=== PATIENT | female | born 1970 | race Caucasian/White ===

== ENCOUNTER → 2017-06-05 09:16 | Outpatient (CLI) | payer OTHER, SELFPAY ==
--- NOTE | 2017-06-05 09:20 | US_ITS ---
STUDY: ULTRASOUND BREAST - LEFT REASON FOR EXAM: Female, 47 years old. Six-month follow-up examination. TECHNIQUE: Axial and longitudinal images of the LEFT breast were performed with a high resolution ultrasound transducer. COMPARISON: Comparison is made with prior sonogram dated September 26, 2016 and prior mammogram done earlier in the day. FINDINGS: LEFT Breast: Once again, a dilated duct is seen at the 3:00 position breast at 3 cm from the nipple. This is unchanged. US/Breast Complete Unilateral IMPRESSION: Stable examination. ASSESSMENT CATEGORY: BIRADS Category 2: Benign. A letter regarding these results will be sent to the patient by the facility within 30 days. Electronically Signed: Branden Lopez MD at 11:03 EDT Tel [phone], Service support ,
--- NOTE | 2017-06-05 09:20 | BI_ITS ---
MAMMOGRAPHY - BILATERAL SCREENING REASON FOR EXAM: Female, 47 years old. Routine annual screening examination. PERTINENT HISTORY: Sister with breast cancer. Aunt with breast cancer. Prior left stereotactic breast biopsy. TECHNIQUE: Digital bilateral breast jorge (3D mammographic acquisition) in the CC and MLO projections. 2-D mediolateral oblique (MLO) and craniocaudad (CC) views of both breasts were obtained. CAD: Full Field Digital Mammography with Computer Added Detection was performed. COMPARISON: Comparison is made with prior study dated September 26, 2016 and February 14, 2016. FINDINGS: Breast Composition: The breasts are heterogeneously dense, which may obscure small masses. There are no dominant masses or suspicious calcifications. A tissue clip marker is once again seen in the deep midportion of the left breast. This is unchanged. No other significant abnormalities are identified. There has been no significant change since the prior study. BI/SCREENING MAMM (CAD), BILAT IMPRESSION: Stable bilateral screening mammogram. Yearly follow-up mammogram recommended. (A) ASSESSMENT CATEGORY: BIRADS Category 2: Benign. A letter regarding these results will be sent to the patient by the facility within 30 days. Approximately 10% of breast cancers are not detected by mammography. A normal mammogram should not delay biopsy of a clinically suspicious abnormality. [id number] Electronically Signed: Branden Lopez MD at 11:10 EDT Tel [phone], Service support ,
== END ==
PROVIDERS: Family Provider Internal Medicine; PCP Internal Medicine; Visit Provider Physician Assistant
DX: Z12.31 Encounter for screening mammogram for malignant neoplasm of breast (principal); R92.8 Other abnormal and inconclusive findings on diagnostic imaging of breast; Z80.3 Family history of malignant neoplasm of breast
CPT/HCPCS: 76641; 77063; 77067

== ENCOUNTER → 2018-01-28 09:32 | Outpatient (CLI) | payer OTHER, SELFPAY ==
--- NOTE | 2018-01-28 09:38 | BD_ITS ---
STUDY: DUAL ENERGY X-RAY ABSORPTIOMETRY / DXA REASON FOR EXAM: Female, 47 years old. Early menopause. No loss of height. TECHNIQUE: Bone Mineral Density (BMD) measurements of lumbar spine and bilateral hips were obtained. COMPARISON: Comparison is made with prior study dated February 06, 2015. FINDINGS: Lumbar Spine (L1-L4): g/cm2 (1.183) / T-score (0.0) / Z-score (0.2) Findings are suggestive of normal bone density with a low fracture risk. Left Femur Total: g/cm2 (0.884) / T-score (-1.0) / Z-score (-0.6) Left Femoral Neck: g/cm2 (0.831) / T-score (-1.5) / Z-score (-0.8) Right Femur Total: g/cm2 (0.873) / T-score (-1.1) / Z-score (-0.7) Right Femoral Neck: g/cm2 (0.831) / T-score (-1.5) / Z-score (-0.8) The T-Scores on the most recent prior examination were: Lumbar Spine (L1-L4): There has been worsening of bone density since the previous examination. Left Femur Total: which represents a worsening of 1.7%. Right Femur Total: which represents a worsening of 2.1%. BD/Dexa Bone Density Study IMPRESSION: The patient is considered osteopenic as outlined below according to World [employer] Organization (WHO) criteria with a moderate fracture risk. There has been worsening of bone density since the previous examination. Reference Information: The T-score is the number of standard deviations above or below the standard which is normal for young adults at their peak bone mineral density. The World Health Organization (WHO) interprets the T-scores as follows: Above -1 Normal bone density Between -1 and -2.5 Osteopenia Equal to / or below -2.5 Osteoporosis As a practical clinical guideline, osteopenia may be graded as follows: Mild -1 through -1.5 Moderate -1.6 through -2.0 Severe -2.1 through -2.4 The Z-score is the number of standard deviations above or below age-matched controls. A Z-score of less than -1.5 would be considered abnormal. References: 1. NIH Osteoporosis and Related Bone Diseases http://www.osteo.org 2. International Society for Clinical Densitometry http://www.iscd.org 3. National Osteoporosis Foundation http://www.nof.org Electronically Signed: Branden Lopez MD at 10:09 EST Tel [phone], Service support ,
--- OUTSIDE RECORDS SUMMARY | 2018-03-16 03:11 | XMS RPT_ITS ---
:1970 Author Organization OHIP Care Team Providers Name Role Phone RAYMUNDO ARANGO Referring Unavailable TALRAYMUNDO FULLER Attending Unavailable GAMA VILLARREAL Attending Unavailable TALAMPRAYMUNDO DEL VALLE Referring Unavailable Joellen Richardson Attending Unavailable Talampas, Raymundo Primary Care Unavailable Donna Damico PA-C Attending Unavailable [place]ampas, Raymundo Primary Care Unavailable Jeffery Alonso Attending Unavailable Talampas, Raymundo Referring Unavailable Talampas, Raymundo Primary Care Unavailable PROBLEMS PROBLEMS DATE TYPE CONDITION / CODE ATTENDING STATUS SOURCE 11/14/2017 Active Encounter for NA Active [place] immunization / Clinic Main Z23(ICD-10) [place] Rep[facility] 06/16/2017 Active Mixed hyperlipidemia NA Active [facility] / E78.2(ICD-10) Clinic Main [place] Rep[facility] 07/11/2011 Active Other specified NA Active [facility] disorders of bone Clinic Main density and [place] structure, Repository unspecified site / M85.80(ICD-10) 06/19/2017 Active Encounter for NA Active [facility] screening for lipoid Clinic Main disorders / [place] Z13.220(ICD-10) Repository 06/19/2017 Active Malignant melanoma NA Active [facility] of unspecified lower Clinic Main limb, including hip [place] / C43.70(ICD-10) Repository 06/19/2017 Active Encounter for NA Active [place] screening for Clinic Main diabetes mellitus / [place] Z13.1(ICD-10) Repository 06/12/2017 Unknown R92.8 - Other Jeffery Alonso Active [place] abnormal and Community inconclusive Hospital findings on Repository diagnostic imaging of breast / R92.8(ICD-10) PROCEDURES PROCEDURES No Procedure Records FoundRESULTS RESULTS PROGRESS Observed: 02/25/2018 Status: COMPLETED Source: [facility] 9:40 AM [facility] REPOSITORY HNO ID: [id number] Author: Gama Villarreal Service: (none) Author Type: Physician Type: Progress Notes Filed: 02/25/2018 9:46 AM Note Text: This note was created using Robinhoodriter. Subjective Tisha Hernández is a 47 year old female with left eye irritation, discharge, eyelid stickiness, some blurriness of vision for 4 days. She felt vague discomfort in her left preauricular area. She has a history of recurrent corneal abrasion. She denied foreign body concerns. Right eye was fine. She was applying Genteel ointment with no relief. Review of Systems Constitutional: Negative for chills and fever. Eyes: Negative for pain. See HPI. Objective BP 110/62 (BP Site: Right Arm, BP Position: Sitting, BP Cuff Size: Regular Adult) Pulse 64 Temp 36.6 ?C (97.8 ?F) (Tympanic) Resp 18 Ht 167.6 cm (5' 6) Wt 61.7 kg (136 lb) LMP 12/13/2004 BMI 21.95 kg/m? Physical Exam Constitutional: No distress. Eyes: Pupils are equal, round, and reactive to light. EOM are normal. Right eye exhibits no discharge. Right conjunctiva is not injected. Right conjunctiva has no hemorrhage. Left conjunctiva is injected. Small eyelash in left eye. Corneas clear. Assessment and Plan 1. Acute bacterial conjunctivitis of left eye - ICD9: 372.03, ICD10: H10.32 - see medication orders - GENTAMICIN 0.3 % EYE DROPS. 2 drops left eye TID x 5 days. Irrigate eye as needed. Gama Villarreal MD CNOV Observed: 02/25/2018 Status: COMPLETED Source: [facility] 9:20 AM [facility] REPOSITORY Office Visit (INTMWS) TISHA HERNÁNDEZ ([id number]) 1970 F Date Time Provider Department 02/25/18 9:20 AM GAMA VILLARREAL INTMWS During your visit today, we recorded the following information about you: Temperature Pulse Respiration Blood pressure 97.8 degrees 64/minute 18/minute 110/62 Weight Height 61.7 kg 1.676 m Gama Villarreal MD 02/25/2018 9:46 AM Signed This note was created using BigBad. Subjective Tisha Hernández is a 47 year old female with left eye irritation, discharge, eyelid stickiness, some blurriness of vision for 4 days. She felt vague discomfort in her left preauricular area. She has a history of recurrent corneal abrasion. She denied foreign body concerns. Right eye was fine. She was applying Genteel ointment with no relief. Review of Systems Constitutional: Negative for chills and fever. Eyes: Negative for pain. See HPI. Objective BP 110/62 (BP Site: Right Arm, BP Position: Sitting, BP Cuff Size: Regular Adult) Pulse 64 Temp 36.6 ?C (97.8 ?F) (Tympanic) Resp 18 Ht 167.6 cm (5' 6) Wt 61.7 kg (136 lb) LMP 12/13/2004 BMI 21.95 kg/m? Physical Exam Constitutional: No distress. Eyes: Pupils are equal, round, and reactive to light. EOM are normal. Right eye exhibits no discharge. Right conjunctiva is not injected. Right conjunctiva has no hemorrhage. Left conjunctiva is injected. Small eyelash in left eye. Corneas clear. Assessment and Plan 1. Acute bacterial conjunctivitis of left eye - ICD9: 372.03, ICD10: H10.32 - see medication orders - GENTAMICIN 0.3 % EYE DROPS. 2 drops left eye TID x 5 days. Irrigate eye as needed. Gama Villarreal MD Referring Provider: RAYMUNDO ARANGO [[id number]] Allergies As of Date: 02/25/2018 Noted Allergy Reaction AZITHROMYCIN 10/05/2006 4 - Hives environment allergies [Other] 12/14/2004 SULFA (SULFONAMIDE ANTIBIOTICS) 12/14/2004 2 - Rash Date Reviewed: 02/25/2018 Reviewed by: Kimberley Crain - Fully Assessed Reason for Visit: Eye Infection [242] Cmt: Left eye x 4 days with blurred vision, soreness, discharge and eyelid swelling- pain radiates to left ear Reason For Visit History Recorded Visit Diagnosis:Acute bacterial conjunctivitis of left eye [H10.32] Order(s):gentamicin (GENTAK) 0.3 % ophthalmic solutionUse 2 Drops in the left eye three times daily for 5 days.Disp: 1 mLRfl: 0 Prescriptions as of 02/25/2018 Sig: * ESTRADIOL 1 MG TABLET Take 1 tablet by mouth once d* * MULTIVITAMIN TABLET Take one(1) tablet daily. GENTAMICIN 0.3 % EYE DROPS Use 2 Drops in the left eye t* ESTRADIOL 10 MCG VAGINAL TABL* Use 1 tablet vaginally twice * * CALCIUM WWS-RWN-S5-ZN-COPPER-* Take by mouth. Problem List As Of Date 02/25/2018 Noted Resolved HEMORRHOIDS EXTERNAL THROMBOSED [K64.5] INVALID FOR* PERS HX CERVICAL MALIGNANCY [Z85.41] INVALID FOR* MALIG MELANOMA LEG [C43.70] INVALID FOR* Hyperlipidemia, mixed [E78.2] INVALID FOR* Family History of Breast Cancer [Z80.3] INVALID FOR* More... Osteopenia [M85.80] Prescriptions ordered this encounter Disp Refills Start End GENTAMICIN 0.3 % EYE DROPS 1 mL 0 02/25/2018 03/02/2018 Route: LEFT EYE Sig: Use 2 Drops in the left eye three times daily for 5 days. Medications Discontinued During This Encounter benzonatate (TESSALON PERLES) 100 mg* 30 c* 0 10/30/2014 02/25/2018 Class: Print RX Route: ORAL Sig: Take 1 capsule by mouth three times daily as needed for Cough. Disc: Reason for discontinue is not on file. Disposition: Return if symptoms worsen or fail to improve. Follow-up and Disposition History Recorded Encounter Status:Closed by GAMA VILLARREAL MD on 02/25/18 DEXA BONE DENSITY Observed: 01/28/2018 Status: F Source: [place] [facility] 9:[address] [facility] REPOSITORY [facility] Imaging Services [address] [place] [address] Dexa Bone Density Study MR#: [id number] Acct: [id number] Name: TISHA HERNÁNDEZ Rep #: [id number] : 1970 F 47 From: Branden Lopez MD PCP: Raymundo Arango MD Status: REG CLI Study: Dexa Bone Density Study Date of Exam: 01/28/18 Exam# [id number] Ordering Dr: Joellen Richardson MD STUDY: DUAL ENERGY X-RAY ABSORPTIOMETRY / DXA REASON FOR EXAM: Female, 47 years old. Early menopause. No loss of height. TECHNIQUE: Bone Mineral Density (BMD) measurements of lumbar spine and bilateral hips were obtained. COMPARISON: Comparison is made with prior study dated February 06, 2015. FINDINGS: Lumbar Spine (L1-L4): g/cm2 (1.183) / T-score (0.0) / Z-score (0.2) Findings are suggestive of normal bone density with a low fracture risk. Left Femur Total: g/cm2 (0.884) / T-score (-1.0) / Z- score (-0.6) Left Femoral Neck: g/cm2 (0.831) / T-score (-1.5) / Z- score (-0.8) Right Femur Total: g/cm2 (0.873) / T-score (-1.1) / Z- score (-0.7) Right Femoral Neck: g/cm2 (0.831) / T-score (-1.5) / Z-score (-0.8) The T-Scores on the most recent prior examination were: Lumbar Spine (L1-L4): There has been worsening of bone density since the previous examination. Left Femur Total: which represents a worsening of 1.7%. Right Femur Total: which represents a worsening of 2.1%. BD/Dexa Bone Density Study IMPRESSION: The patient is considered osteopenic as outlined below according to World Jamison Organization (WHO) criteria with a moderate fracture risk. There has been worsening of bone density since the previous examination. Reference Information: The T-score is the number of standard deviations above or below the standard which is normal for young adults at their peak bone mineral density. The World Health Organization (WHO) interprets the T-scores as follows: Above -1 Normal bone density Between -1 and -2.5 Osteopenia Equal to / or below -2.5 Osteoporosis As a practical clinical guideline, osteopenia may be graded as follows: Mild -1 through -1.5 Moderate -1.6 through -2.0 Severe -2.1 through -2.4 The Z-score is the number of standard deviations above or below age-matched controls. A Z-score of less than -1.5 would be considered abnormal. References: 1. NIH Osteoporosis and Related Bone Diseases http://www.osteo.org 2. International Society for Clinical Densitometry http://www.iscd.org 3. National Osteoporosis Foundation http://www.nof.org Electronically Signed: Branden Lopez MD at 10:09 EST Tel [phone], Service support , CC: Joellen Richardson MD; Raymundo Arango MD Animal Rehabilitator: Signed CNNURSE Observed: 11/14/2017 Status: COMPLETED Source: [facility] 9:20 AM [facility] REPOSITORY Nurse Visit (CORWST) LIZETTETISHA Bean ([id number]) 1970 F Date Time Provider Department 11/14/17 9:20 AM [facility] During your visit today, we recorded the following information about you: Rom Lazcano DILLON 11/14/2017 9:22 AM Signed 47 year old female here for INACTIVATED INFLUENZA VACCINE. Season Patient is identified by name and date of : Yes [] CONTRAINDICATIONS color enhanced section Age less than 6 months? No Allergy to eggs, chicken, chicken feathers, or chicken dander? No Allergy to thimerosal (a preservative) or formaldehyde, gelatin? No History of severe reaction to any vaccine component or a previous dose of influenza vaccination? No History of Guillain-[place] Syndrome within 6 weeks after a previous influenza vaccine? No Patient is not moderately or severely ill? No Current temperature greater or equal to 100.4F? No History of Bone Marrow Transplant prior 6 months or solid organ transplant in the past 3 months ? No History of fainting after a prior injection or medical procedure? No- ? If patient has fainted in the past, the CDC recommends sitting or lying down for 15 minutes after the vaccination. [] VERIFICATION color enhanced section Was the answer Yes for any of the above contraindications? No contraindications present. Acceptable to proceed with vaccine. Patient/guardian agrees the above answers are true to the best of their knowledge? Yes Flu vaccine information sheet given? Yes See immunization activity in [facility] for details of immunizations adminstered today. Patient age: [age] year old For The Flu Season 6-35 months old: Fluzone 0.25 ml - IM (Preservative Free) 3 years of age: Fluzone 0.5 ml - IM (Preservative Free) 3 years and older: Fluzone 0.5 ml- IM-(with Preservatives) 65+ years old: 2-49 years old Fluzone High-Dose 0.5 ml - IM (Preservative Free) FLUMIST- intranasal REMEMBER: If patient is less than 9 years of age and this is the first vaccine of Influenza to be received in any flu season, they should receive a second dose in one months time. Referring Provider: SELF [[id number]] Allergies As of Date: 11/14/2017 Noted Allergy Reaction AZITHROMYCIN 10/05/2006 4 - Hives environment allergies [Other] 12/14/2004 SULFA (SULFONAMIDE ANTIBIOTICS) 12/14/2004 2 - Rash Date Reviewed: 06/29/2017 Reviewed by: Agatha Pizano Concrete Plant Laborer - Fully Assessed Reason for Visit: Imm/Inj [58] Cmt: Flu Vaccine Primary Visit Diagnosis:Need for vaccination [Z23] Order(s):INFLUENZA VACCINE QUADRIVALENT AGE 3 YRS PLUS + IM [[id number]] Order #: [id number] Prescriptions as of 11/14/2017 Sig: BENZONATATE 100 MG CAPSULE Take 1 capsule by mouth three* ESTRADIOL 10 MCG VAGINAL TABL* Use 1 tablet vaginally twice * * ESTRADIOL 1 MG TABLET Take 1 tablet by mouth once d* * CALCIUM NVV-SJW-I6-ZN-COPPER-* Take by mouth. * MULTIVITAMIN TABLET Take one(1) tablet daily. Problem List As Of Date 11/14/2017 Noted Resolved HEMORRHOIDS EXTERNAL THROMBOSED [K64.5] INVALID FOR* PERS HX CERVICAL MALIGNANCY [Z85.41] INVALID FOR* MALIG MELANOMA LEG [C43.70] INVALID FOR* Hyperlipidemia, mixed [E78.2] INVALID FOR* Family History of Breast Cancer [Z80.3] INVALID FOR* More... Osteopenia [M85.80] Encounter Status:Closed by ROM LAZCANO LPN on 11/14/17 PROGRESS Observed: 11/10/2017 Status: COMPLETED Source: [place] 9:19 AM [facility] REPOSITORY HNO ID: [id number] Author: Rom Lazcano LPN Service: (none) Author Type: (none) Type: Progress Notes Filed: 11/14/2017 9:22 AM Note Text: 47 year old female here for INACTIVATED INFLUENZA VACCINE. [id number] Season Patient is identified by name and date of : Yes [] CONTRAINDICATIONS color enhanced section Age less than 6 months? No Allergy to eggs, chicken, chicken feathers, or chicken dander? No Allergy to thimerosal (a preservative) or formaldehyde, gelatin? No History of severe reaction to any vaccine component or a previous dose of influenza vaccination? No History of Guillain-[place] Syndrome within 6 weeks after a previous influenza vaccine? No Patient is not moderately or severely ill? No Current temperature greater or equal to 100.4F? No History of Bone Marrow Transplant prior 6 months or solid organ transplant in the past 3 months ? No History of fainting after a prior injection or medical procedure? No- ? If patient has fainted in the past, the CDC recommends sitting or lying down for 15 minutes after the vaccination. [] VERIFICATION color enhanced section Was the answer Yes for any of the above contraindications? No contraindications present. Acceptable to proceed with vaccine. Patient/guardian agrees the above answers are true to the best of their knowledge? Yes Flu vaccine information sheet given? Yes See immunization activity in [facility] for details of immunizations adminstered today. Patient age: [age] year old For The Flu Season 6-35 months old: Fluzone 0.25 ml - IM (Preservative Free) 3 years of age: Fluzone 0.5 ml - IM (Preservative Free) 3 years and older: Fluzone 0.5 ml- IM-(with Preservatives) 65+ years old: 2-49 years old Fluzone High-Dose 0.5 ml - IM (Preservative Free) FLUMIST- intranasal REMEMBER: If patient is less than 9 years of age and this is the first vaccine of Influenza to be received in any flu season, they should receive a second dose in one months time. PROGRESS Observed: 06/29/2017 Status: COMPLETED Source: [facility] 9:53 AM [facility]INIC [facility] REPOSITORY O ID: [id number] Author: Raymundo Arango Service: (none) Author Type: Physician Type: Progress Notes Filed: 07/10/2017 12:14 AM Note Text: HISTORY Tisha Hernández is a 47 year old lady here for yearly exam and follow up appointment. Overall doing well. Exercising at [employer] 3 times weekly. Healthy diet most of the time. PAST MEDICAL HISTORY Diagnosis Date - Abnormal mammogram, unspecified left breast - Family history of breast cancer - Malignant melanoma of skin of lower limb, including hip (HCC) 02/04/2008 - Malignant neoplasm of cervix uteri, unspecified site 05/28/06 had a hysterectomy due to the cervical cancer - Mitral valve disorders(424.0) last echo was normal; gets occasional palpitations - Osteopenia Current Outpatient Prescriptions: benzonatate (TESSALON PERLES) 100 mg capsule Take 1 capsule by mouth three times daily as needed for Cough. Estradiol (VAGIFEM) 10 mcg Tab vaginal tablet Use 1 tablet vaginally twice a week. estradiol 1 mg ORAL tablet Take 1 tablet by mouth once daily. Fredrick Rcl-Ivx-R0-Pe-Mxz-Has-Bor (CITRACAL PLUS MAGNESIUM) 250-40-125 mg-mg-unit ORAL Tab Take by mouth. multivitamin ORAL Tab Take one(1) tablet daily. No current facility-administered medications for this visit. ALLERGIES Allergen Reactions - Azithromycin Hives - Environment Allergi* - Sulfa (Sulfonamide * Rash FAMILY HISTORY Problem Relation Age of Onset - Breast Cancer Sister - Heart Father Social History Marital status: Spouse name: Danny Years of education: Number of children: 1 Occupational History Occupation Employer Comment [employer]* Social History Main Topics Smoking status: Never Smoker Smokeless tobacco: Never Used Alcohol use: Yes Comment: couple times a year only Drug use: No Sexual activity: Yes Partners with: Male control/protection: Pill Social History Narrative Lives with her and daughter REVIEW OF SYSTEMS Aside from above, Constitutional, HEENT, CV, PULM, GI, , PSYCH, DERM, HEM/ONC, NEURO negative. PHYSICAL EXAMINATION: Blood pressure 110/82, pulse 80, resp. rate 16, height 169.5 cm (5' 6.73), weight 61.2 kg (135 lb), last menstrual period 12/13/2004. Body mass index is 21.31 kg/m?. Last 5 Encounter BP Readings: Date: BP: 06/29/2017 110/82 04/16/2015 94/60 10/30/2014 108/62 03/30/2014 98/64 12/15/2013 110/74 Last 5 Encounter Wt Readings: Date: Wt: 06/29/2017 61.2 kg (135 lb) 04/16/2015 60.8 kg (134 lb) 10/30/2014 62.6 kg (138 lb) 03/30/2014 61.7 kg (136 lb) 12/15/2013 59 kg (130 lb) General appearance: well appearing, in no acute distress, well-hydrated, well nourished Skin: Skin color, texture, turgor normal. No significant rashes or lesions. Head: Normal Eyes: Anicteric sclera. Pupils are equally round and reactive to light. Extraocular movements are intact. Ears: External ears normal. Canals clear. TM's unremarkable. Nose/Sinuses: negative Oropharynx: Lips, mucosa, and tongue normal. Teeth and gums normal. Oropharynx normal. Neck: Neck supple, no adenopathy; thyroid symmetric, normal size, no bruits. Lungs: Lungs clear to auscultation Heart: negative. RRR without murmur, gallop, or rubs. No ectopy. Abdomen: Abdomen soft, non-tender. Bowel sounds normal. No masses, organomegaly Extremities: Extremities normal. No deformities, edema, or skin discoloration. Good capillary refill. Musculoskeletal: grossly normal Peripheral pulses: Normal Neuro: Gait normal. Reflexes normal and symmetric. Sensation grossly intact. No gross focal neurological deficits. Labs reviewed. Component Latest Ref Rng AND Units 06/19/2017 Protein, Total 6.3 - 8.0 g/dL 7.1 Albumin 3.9 - 4.9 g/dL 4.1 Calcium 8.5 - 10.2 mg/dL 8.7 Bilirubin, Total 0.2 - 1.3 mg/dL 0.6 Alkaline Phosphatase 32 - 117 U/L 44 AST 13 - 35 U/L 21 Glucose 74 - 99 mg/dL 81 BUN 7 - 21 mg/dL 16 Creatinine 0.58 - 0.96 mg/dL 0.75 Sodium 136 - 144 mmol/L 142 Potassium 3.7 - 5.1 mmol/L 4.1 Chloride 97 - 105 mmol/L 103 CO2 22 - 30 mmol/L 28 Anion Gap 9 - 18 mmol/L 11 ALT 7 - 38 U/L 16 eGFR- >60 eGFR-All Other Races . >60 Cholesterol, Total <200 mg/dL 198 Triglyceride <150 mg/dL 36 HDL Cholesterol >39 mg/dL 98 LDL Cholesterol <100 mg/dL 93 Non HDL Cholesterol <130 mg/dL 100 Fasting Time hrs 10 VLDL Cholesterol <30 mg/dL 7 TC:HDL Ratio <5.10 2.02 LDL:HDL Ratio <2.54 0.95 Hemoglobin A1C 4.3 - 5.6 % 5.5 Estimated Average Glucose mg/dL 111 ASSESSMENT AND PLAN See diagnoses and orders Encounter Diagnosis ICD-10-CM 1. Routine medical exam Z00.00 Above issues addressed with patient. Patient involved in shared decision making for management of her medical issues. History and medications reviewed. Epic updated as needed Refills taken care of and meds adjusted as indicated after reviewed history, exam and labs. Health Maintenance reviewed. Updated record and/or ordered tests as recorded. Encouraged on efforts at healthy diet and regular exercise and adequate sleep. MD Dr. Dylan Love orders screening mammograms. Raymundo Arango MD CNOV Observed: 06/29/2017 Status: COMPLETED Source: [place] 9:00 AM [facility] REPOSITORY Office Visit (INTMWS) TISHA HERNÁNDEZ ([id number]) 1970 F Date Time Provider Department 06/29/17 9:00 AM RAYMUNDO ARANGO During your visit today, we recorded the following information about you: Pulse Respiration Blood pressure Weight 80/minute 16/minute 110/82 61.2 kg Height 1.695 m Raymundo Arango MD 07/10/2017 12:14 AM Signed HISTORY Tisha Hernández is a 47 year old lady here for yearly exam and follow up appointment. Overall doing well. Exercising at [employer] 3 times weekly. Healthy diet most of the time. PAST MEDICAL HISTORY Diagnosis Date - Abnormal mammogram, unspecified left breast - Family history of breast cancer - Malignant melanoma of skin of lower limb, including hip (HCC) 02/04/2008 - Malignant neoplasm of cervix uteri, unspecified site 05/28/06 had a hysterectomy due to the cervical cancer - Mitral valve disorders(424.0) last echo was normal; gets occasional palpitations - Osteopenia Current Outpatient Prescriptions: benzonatate (TESSALON PERLES) 100 mg capsule Take 1 capsule by mouth three times daily as needed for Cough. Estradiol (VAGIFEM) 10 mcg Tab vaginal tablet Use 1 tablet vaginally twice a week. estradiol 1 mg ORAL tablet Take 1 tablet by mouth once daily. Fredrick Ewg-Yzq-E2-Ok-Myp-Yop-Bor (CITRACAL PLUS MAGNESIUM) 250-40-125 mg-mg-unit ORAL Tab Take by mouth. multivitamin ORAL Tab Take one(1) tablet daily. No current facility-administered medications for this visit. ALLERGIES Allergen Reactions - Azithromycin Hives - Environment Allergi* - Sulfa (Sulfonamide * Rash FAMILY HISTORY Problem Relation Age of Onset - Breast Cancer Sister - Heart Father Social History Marital status: Spouse name: Danny Years of education: Number of children: 1 Occupational History Occupation Employer Comment [employer] F[employer]* Social History Main Topics Smoking status: Never Smoker Smokeless tobacco: Never Used Alcohol use: Yes Comment: couple times a year only Drug use: No Sexual activity: Yes Partners with: Male control/protection: Pill Social History Narrative Lives with her and daughter REVIEW OF SYSTEMS Aside from above, Constitutional, HEENT, CV, PULM, GI, , PSYCH, DERM, HEM/ONC, NEURO negative. PHYSICAL EXAMINATION: Blood pressure 110/82, pulse 80, resp. rate 16, height 169.5 cm (5' 6.73), weight 61.2 kg (135 lb), last menstrual period 12/13/2004. Body mass index is 21.31 kg/m?. Last 5 Encounter BP Readings: Date: BP: 06/29/2017 110/82 04/16/2015 94/60 10/30/2014 108/62 03/30/2014 98/64 12/15/2013 110/74 Last 5 Encounter Wt Readings: Date: Wt: 06/29/2017 61.2 kg (135 lb) 04/16/2015 60.8 kg (134 lb) 10/30/2014 62.6 kg (138 lb) 03/30/2014 61.7 kg (136 lb) 12/15/2013 59 kg (130 lb) General appearance: well appearing, in no acute distress, well-hydrated, well nourished Skin: Skin color, texture, turgor normal. No significant rashes or lesions. Head: Normal Eyes: Anicteric sclera. Pupils are equally round and reactive to light. Extraocular movements are intact. Ears: External ears normal. Canals clear. TM's unremarkable. Nose/Sinuses: negative Oropharynx: Lips, mucosa, and tongue normal. Teeth and gums normal. Oropharynx normal. Neck: Neck supple, no adenopathy; thyroid symmetric, normal size, no bruits. Lungs: Lungs clear to auscultation Heart: negative. RRR without murmur, gallop, or rubs. No ectopy. Abdomen: Abdomen soft, non-tender. Bowel sounds normal. No masses, organomegaly Extremities: Extremities normal. No deformities, edema, or skin discoloration. Good capillary refill. Musculoskeletal: grossly normal Peripheral pulses: Normal Neuro: Gait normal. Reflexes normal and symmetric. Sensation grossly intact. No gross focal neurological deficits. Labs reviewed. Component Latest Ref Rng AND Units 06/19/2017 Protein, Total 6.3 - 8.0 g/dL 7.1 Albumin 3.9 - 4.9 g/dL 4.1 Calcium 8.5 - 10.2 mg/dL 8.7 Bilirubin, Total 0.2 - 1.3 mg/dL 0.6 Alkaline Phosphatase 32 - 117 U/L 44 AST 13 - 35 U/L 21 Glucose 74 - 99 mg/dL 81 BUN 7 - 21 mg/dL 16 Creatinine 0.58 - 0.96 mg/dL 0.75 Sodium 136 - 144 mmol/L 142 Potassium 3.7 - 5.1 mmol/L 4.1 Chloride 97 - 105 mmol/L 103 CO2 22 - 30 mmol/L 28 Anion Gap 9 - 18 mmol/L 11 ALT 7 - 38 U/L 16 eGFR- >60 eGFR-All Other Races . >60 Cholesterol, Total <200 mg/dL 198 Triglyceride <150 mg/dL 36 HDL Cholesterol >39 mg/dL 98 LDL Cholesterol <100 mg/dL 93 Non HDL Cholesterol <130 mg/dL 100 Fasting Time hrs 10 VLDL Cholesterol <30 mg/dL 7 TC:HDL Ratio <5.10 2.02 LDL:HDL Ratio <2.54 0.95 Hemoglobin A1C 4.3 - 5.6 % 5.5 Estimated Average Glucose mg/dL 111 ASSESSMENT AND PLAN See diagnoses and orders Encounter Diagnosis ICD-10-CM 1. Routine medical exam Z00.00 Above issues addressed with patient. Patient involved in shared decision making for management of her medical issues. History and medications reviewed. Epic updated as needed Refills taken care of and meds adjusted as indicated after reviewed history, exam and labs. Health Maintenance reviewed. Updated record and/or ordered tests as recorded. Encouraged on efforts at healthy diet and regular exercise and adequate sleep. MD Dr. Dylan Love orders screening mammograms. Raymundo Arango MD Referring Provider: SELF [200] Allergies As of Date: 06/29/2017 Noted Allergy Reaction AZITHROMYCIN 10/05/2006 4 - Hives environment allergies [Other] 12/14/2004 SULFA (SULFONAMIDE ANTIBIOTICS) 12/14/2004 2 - Rash Date Reviewed: 06/29/2017 Reviewed by: Agatha Pizano Cma - Fully Assessed Reason for Visit: Physical [83] Primary Visit Diagnosis:Routine medical exam [Z00.00] Prescriptions as of 06/29/2017 Sig: BENZONATATE 100 MG CAPSULE Take 1 capsule by mouth three* ESTRADIOL 10 MCG VAGINAL TABL* Use 1 tablet vaginally twice * * ESTRADIOL 1 MG TABLET Take 1 tablet by mouth once d* * CALCIUM [id number]-TSP-V4-ZN-COPPER-* Take by mouth. * MULTIVITAMIN TABLET Take one(1) tablet daily. Medication notes this encounter BENZONATATE 100 MG CAPSULE >> Agatha Pizano Cma 06/29/2017 9:20 AM >> AGATHA PIZANO CMA ThuJune 29, 2017 9:20 AM No longer using ESTRADIOL 10 MCG VAGINAL TABLET >> Agatha Pizano Cma 06/29/2017 9:20 AM >> AGATHA PIZANO CMA ThuJune 29, 2017 9:20 AM No longer using CALCIUM KZH-[id number]-[id number]-VU-EVGLFM-ZC-BORON 250 MG-40 MG-125 UNIT TABLET >> Agatha Pizano Cma 06/29/2017 9:21 AM >> AGATHA PIZANO CMA Mon June 29, 2017 9:21 AM No longer using Problem List As Of Date 06/29/2017 Noted Resolved HEMORRHOIDS EXTERNAL THROMBOSED [K64.5] INVALID FOR* PERS HX CERVICAL MALIGNANCY [Z85.41] INVALID FOR* MALIG MELANOMA LEG [C43.70] INVALID FOR* Hyperlipidemia, mixed [E78.2] INVALID FOR* Family History of Breast Cancer [Z80.3] INVALID FOR* More... Osteopenia [M85.80] Disposition: Return in about 1 year (around 06/29/2018) for Yearly exam and follow up (40 min). Follow-up and Disposition History Recorded Encounter Status:Closed by RAYMUNDO ARANGO MD on 07/10/17 COMP METABOLIC PANEL Collected: 06/19/2017 Status: F Source: [place] 9[facility]11 AM [facility] REPOSITORY TYPE CODE TESTS RESULT OUT OF REFERENCE UNITS RANGE LAB TP 6.3-8.0 g/dL Protein, Total 7.1 LAB ALB 3.9-4.9 g/dL Albumin 4.1 LAB CA 8.5-10.2 mg/dL Calcium, Total 8.7 LAB TBIL 0.2-1.3 mg/dL Bilirubin, Total 0.6 LAB ALKP 32-117 U/L Alkaline Phosphatase 44 LAB AST 13-35 U/L AST 21 LAB GLU 74-99 mg/dL Glucose 81 Result Comment: The [place] Diabetes [employer] (ADA) provides guidance for cutoff values for fasting glucose and random glucose. The ADA defines fasting as no caloric intake for at least 8 hours. Fas ting plasma glucose results between 100 to 125 mg/dL indicate increased risk for diabetes (prediabetes). Fasting plasma glucose results greater than or equal to 126 mg/dL meet the criteria for diagnosis of diabetes. In the absence of unequivocal hyperglycemia, results should be confirmed by repeat testing. In a patient with classic symptoms of hyperglycemia or hyperglycemic crisis, random plasma glucose results greater than or equal to 200 mg/dL meet the criteria for diagnosis of diabetes. Reference: Standards of Medical Care in Diabetes 2016, [place] [employer]. Diabetes Care. 2016.39(Suppl 1). LAB BUN 7-21 mg/dL BUN 16 LAB CRET 0.58-0.96 mg/dL Creatinine 0.75 LAB NA 136-144 mmol/L Sodium 142 LAB K 3.7-5.1 mmol/L Potassium 4.1 LAB CL 97-105 mmol/L Chloride 103 LAB CO2 22-30 mmol/L CO2 28 LAB AGAP 9-18 mmol/L Anion Gap 11 LAB ALT 7-38 U/L ALT 16 LAB GFRAA eGFR- Amer. >60 LAB GFRNAA . eGFR-All Other Races >60 Result Comment: eGFR (Estimated GFR) Units of measure: mL/min/1.73 meters squared eGFR is derived from the reexpressed MDRD Study equation using the following parameters: serum creatinine, age, gender and race. The creatinine assay has been calibrated to be traceable to IDMS. An eGFR <60 mL/min/1.73m2 for >3 months is consistent with chronic kidney disease. Refer to KDOQI guidelines for clinical interpretation. In patients with unstable renal function, e.g. those with acute kidney injury, the eGFR may not accurately reflect actual GFR. Performed By: #### CMP, LIPB, CBCDIF, HBA1C #### [facility] [address] [place], [place] [address] LIPID PANEL, BASIC Collected: 06/19/2017 Status: F Source: [place] 9:11 AM [facility] REPOSITORY TYPE CODE TESTS RESULT OUT OF REFERENCE UNITS RANGE LAB CHOL <200 mg/dL Cholesterol 198 Result Comment: <200 mg/dL, Desirable 200-239 mg/dL, Borderline high >239 mg/dL, High LAB TRIGLY <150 mg/dL Triglyceride 36 Result Comment: <150 mg/dL, Normal 150-199 mg/dL, Borderline high 200-499 mg/dL, High >499 mg/dL, Very high LAB HDL >39 mg/dL HDL-Cholesterol 98 Result Comment: 40-59 mg/dL, Acceptable >59 mg/dL, High: Negative risk factor for coronary heart disease <40 mg/dL, Low: Positive risk factor for coronary heart disease LAB LDL <100 mg/dL LDL-Cholesterol 93 Result Comment: <100 mg/dL, Optimal 100-129 mg/dL, Near optimal/above optimal 130-159 mg/dL, Borderline high 160-189 mg/dL, High >189 mg/dL, Very high Secondary prevention optimal LDL Cholesterol levels are recommended to be < 70 mg/dL LAB NONHDL <130 mg/dL Non HDL Cholesterol 100 Result Comment: <130 mg/dL, Optimal 130-159 mg/dL, Near optimal/above optimal 160-189 mg/dL, Borderline high 190-219 mg/dL, High >219 mg/dL, Very high Secondary prevention optimal non HDL Cholesterol levels are recommended to be < 100 mg/dL LAB FT hrs Fasting Time 10 LAB VLDL <30 mg/dL VLDL Cholesterol 7 LAB TCHDL <5.10 TC:HDL Ratio 2.02 LAB LDLHDL <2.54 LDL:HDL Ratio 0.95 Result Comment: Reference: 1. National Cholesterol Education Program ATP III Guideline At-A-Glance Quick Desk Reference: National Heart, Lung, and Blood [place]. National Institutes of Health. 2001: NIH Publication No. 01-3305. 2. An International Atherosclerosis Society position paper: global recommendations for the management of dyslipidemia: executive summary, Atherosclerosis. 2014: 232(2):410-413. Performed By: #### CMP, LIPB, CBCDIF, HBA1C #### [facility] [address] [place], [place] [address] CBC AND DIFFERENTIAL Collected: 06/19/2017 Status: F Source: [place] 9:11 AM [facility] REPOSITORY TYPE CODE TESTS RESULT OUT OF REFERENCE UNITS RANGE LAB WBC 3.70-11.00 k/uL Low WBC 3.31 LAB RBC 3.90-5.20 m/uL RBC 4.32 LAB HGB 11.5-15.5 g/dL Hemoglobin 12.6 LAB HCT 36.0-46.0 % Hematocrit 39.6 LAB MCV 80.0-100.0 fL MCV 91.7 LAB MCH 26.0-34.0 pG MCH 29.2 LAB MCHC 30.5-36.0 g/dL MCHC 31.8 LAB RDWCV 11.5-15.0 % RDW-CV 13.5 LAB PLTCT 150-400 k/uL Platelet Count 174 LAB MPV 9.0-12.7 fL MPV 11.3 LAB ANEUT % Neut% 54.4 LAB AANEUT 1.45-7.50 k/uL Abs Neut 1.80 LAB ALYMP % Lymph% 35.6 LAB AALYMP 1.00-4.00 k/uL Abs Lymph 1.18 LAB AMONO % [place]% 7.3 LAB AAMONO <0.87 k/uL Abs [place] 0.24 LAB AEOS % Eosin% 2.1 LAB AAEOS <0.46 k/uL Abs Eosin 0.07 LAB ABASO % Baso% 0.6 LAB AABASO <0.11 k/uL Abs Baso <0.03 LAB AUNRBC 0 /100 WBC NRBCs 0.0 LAB ABNRBC <0.01 k/uL Absolute nRBC <0.01 LAB DTYP DTYPE Auto Diff Performed By: #### CMP, LIPB, CBCDIF, HBA1C #### [facility] [address] [place] [id number] HEMOGLOBIN A1C Collected: 06/19/2017 Status: F Source: [place] 9:11 AM [facility] REPOSITORY TYPE CODE TESTS RESULT OUT OF REFERENCE UNITS RANGE LAB HGBA1C 4.3-5.6 % Hemoglobin A1c 5.5 LAB HBA0 mg/dL Est. Average Glucose 111 Result Comment: eAG: (Estimated average glucose) is a calculated value from HgbA1c and is apprenticeship representative of the average blood glucose level in the last 2-3 month period. Performed By: #### CMP, LIPB, CBCDIF, HBA1C #### [facility] [address] [place] [phone] SURGERY VISIT REPORT Observed: 06/12/2017 Status: F Source: [place] 10:[address] [facility] REPOSITORY [facility] [address] [place] [address]. 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 Filling Required: No Is patient in pain?: No Is last menstrual period known: No Post menopausal: Yes Patient : No [facility] Medical History Osteoarthritis (Acute) Surgical History S/P section (Acute) S/P hemorrhoidectomy (Acute) S/P wisdom tooth extraction (Acute) Status post hysterectomy (Acute) s/p melanoma removal (Acute) Family History Brother Hypertension Sister Breast cancer CVA (cerebral vascular accident) Melanoma Social History Smoking Status: Never smoker alcohol intake: never HPI HPI HPI: TISHA HERNÁNDEZ, is a 47 F who presents to the office today for follow-up from an abnormal mammogram. Originally saw her back on 10/10/2016. At that time we try to identify lesion at the 2 to 3 o'clock position on her left breast. I was not confident that time that I could see anything with my ultrasound machine and I scheduled her to have something done in radiology subsequently were unable to see the lesion then we put her on a yearly ultrasound mammogram schedule so that I could see her again today. She had her mammogram and ultrasounds done at [facility] on 06/05/2017. This came back as a BI-RADS Category 2 with a stable mammogram and ultrasound that showed a dilated duct at the 3 o'clock position 3 cm from the nipple that was unchanged and no component of solid lesion. ROS General General: No weight change, appetite, fatigue, colon cancer, breast cancer or weakness HEENT HEENT: Yes eye surgery; no difficulty swallowing, eye injury, swollen glands or hoarseness Endo Endocrine: No thyroid disease, diabetes mellitus, thyroid cancer, Hair loss, heat intolerance or cold intolerance Skin Skin: No rash or changing moles Breast Breast: No left breast lump, right breast lump, nipple discharge, breast pain, abnormal mammogram, abnormal US or breast enlargement Musc Musculoskeletal: Yes arthritis; no back problems, rheumatoid arthritis, gout or joint pain Cardio Cardiovascular: No murmur, pacemaker, heart disease, atrial fibrillation, high blood pressure, heart attack, heart stent, palpitations, shortness of breat with exertion or chest pain Psych Psychiatric: No depression, anxiety or hearing voices Resp Respiratory: No shortness of breath, No sleep apnea, No cough, No COPD, No asthma, No emphysema, No wheezing Gastro Gastrointestinal: No abdominal pain, No nausea or vomiting, No diarrhea, No constipation, No blood in stool, No acid reflux, No hemorrhoids, No ulcers, No gallbladder problem, No black,tarry stools Samuel Hematologic: No blood thinners, No blood disorders, No bleeding, No anemia, No blood clots Neuro Neurologic: No weakness Exam [facility] Head: normal to inspection, normocephalic, atraumatic Mouth: moist mucous membranes, oropharynx normal Eyes General: appearance normal, both eyes and all related structures Sclera: sclerae normal Neck Neck: no lymphadenopathy noted, trachea midline Neck mass: No Thyroid: thyroid normal Lymphatic: no lymphadenopathy noted Chest Breast inspection: normal inspection of the breasts Breast Palpation: No nipple discharge Resp Other: Respiratory Exam: Deferred Cardio Heart Sounds: no murmurs Other: Cardiac Exam: Deferred GI Other: GI Exam: Deferred Other: Rectal Exam: Deferred Extrem Other: Extremity Exam: Deferred Assessment AND Plan Problems 1. Abnormal ultrasound of breast R92.8 Plan Patient has a stable mammogram and ultrasound at this time. I believe it is in her best interest to follow-up with me one more year to make sure that the stability remains. 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 Coding Level of Care Code Off vis,est,level 2 Diagnoses Abnormal ultrasound of breast R92.8 06/12/17 1001 <Electronically signed by Jeffery Alonso MD> Date Jeffery Alonso MD Cosigner Signature: Date (if applicable) CC: Joellen Richardson MD; Raymundo Arango MD BREAST COMPLETE Observed: 06/05/2017 Status: F Source: [place] [facility] 9:[address] [facility] REPOSITORY [facility] Imaging Services [facility] [address] [place] [address] Breast Complete Unilateral MR#: [id number] Acct: [id number] Name: TISHA HERNÁNDEZ Rep #: [id number] : 1970 F 47 From: Branden Lopez MD PCP: Raymundo Arango MD Status: REG CLI Study: Breast Complete Unilateral Date of Exam: 06/05/17 Exam# [id number] Ordering Dr: Donna Damico PA-C STUDY: ULTRASOUND BREAST - LEFT REASON FOR EXAM: Female, 47 years old. Six-month follow- up examination. TECHNIQUE: Axial and longitudinal images of the LEFT breast were performed with a high resolution ultrasound transducer. COMPARISON: Comparison is made with prior sonogram dated September 26, 2016 and prior mammogram done earlier in the day. FINDINGS: LEFT Breast: Once again, a dilated duct is seen at the 3:00 position breast at 3 cm from the nipple. This is unchanged. US/Breast Complete Unilateral IMPRESSION: Stable examination. ASSESSMENT CATEGORY: BIRADS Category 2: Benign. A letter regarding these results will be sent to the patient by the facility within 30 days. Electronically Signed: Branden Lopez MD at 11:03 EDT Tel [phone], Service support , CC: Donna Damico PA-C; Raymundo Arango MD Animal Rehabilitator: Signed SCREENING MAMM (CAD), Observed: 06/05/2017 Status: F Source: [place] BILAT 9:[address] [facility] REPOSITORY [facility] Imaging Services [address] [place] [id number] SCREENING MAMM (CAD), BILAT MR#: [id number] Acct: [id number] Name: TISHA HERNÁNDEZ Shey Rep #: [id number] : 1970 F 47 From: Branden Lopez MD PCP: Raymundo Arango MD Status: REG CLI Study: SCREENING MAMM (CAD), BILAT Date of Exam: 06/05/17 Exam# [id number] Ordering Dr: Donna Damico PA-C MAMMOGRAPHY - BILATERAL SCREENING REASON FOR EXAM: Female, 47 years old. Routine annual screening examination. PERTINENT HISTORY: Sister with breast cancer. Aunt with breast cancer. Prior left stereotactic breast biopsy. TECHNIQUE: Digital bilateral breast jorge (3D mammographic acquisition) in the CC and MLO projections. 2-D mediolateral oblique (MLO) and craniocaudad (CC) views of both breasts were obtained. CAD: Full Field Digital Mammography with Computer Added Detection was performed. COMPARISON: Comparison is made with prior study dated September 26, 2016 and February 14, 2016. FINDINGS: Breast Composition: The breasts are heterogeneously dense, which may obscure small masses. There are no dominant masses or suspicious calcifications. A tissue clip marker is once again seen in the deep midportion of the left breast. This is unchanged. No other significant abnormalities are identified. There has been no significant change since the prior study. BI/SCREENING MAMM (CAD), BILAT IMPRESSION: Stable bilateral screening mammogram. Yearly follow-up mammogram recommended. (A) ASSESSMENT CATEGORY: BIRADS Category 2: Benign. A letter regarding these results will be sent to the patient by the facility within 30 days. Approximately 10% of breast cancers are not detected by mammography. A normal mammogram should not delay biopsy of a clinically suspicious abnormality. [id number] Electronically Signed: Branden Lopez MD at 11:10 EDT Tel [phone], Service support , CC: Donna Damico PA-C; Raymundo Arango MD Animal Rehabilitator: Signed ALLERGIES ALLERGIES DATE TYPE / CODE NAME / CODE REACTION SEVERITY SOURCE DRUG AZITHROMYCIN HIVES Med [place] [facility] INGREDI/[id number]( Clinic Main SNOMED CT) [facility] Miscellaneous OTHER [place] [facility] Allergy/[id number]( Clinic Main SNOMED CT) [facility] Drug SULFA RASH [place] [facility] Class/[id number](SN (SULFONAMIDE Clinic Main OMED CT) ANTIBIOTICS) [facility] ENCOUNTERS ENCOUNTERS ADMIT/DISCHARGE ACCOUNT ADMITTING ENCOUNTER LOCATION SOURCE NUMBER CLASS 02/25/2018/02/26/19 [id number] Ambulatory [place] [facility] Repository 01/28/[id number] [facility] ing:OPBD Repository 11/14/2017/11/17/19 [id number] Ambulatory [place] [facility] Repository 06/29/2017/07/15/19 [id number] Ambulatory [place] [facility] Repository 06/19/2017/06/20/19 [id number] Ambulatory [address] Repository 06/12/2017/06/13/19 [id number] Ambulatory BMSBuilding:Mary [address] Repository 06/05/[id number] [facility] ing:OPUS Repository PAYERS PAYERS ENCOUNTER GUARANTOR PAYER SUBSCRIBER SOURCE 01/28/2018 DANNY SANTILLANK2521 Primary DANNY CROCKEROB: [place] Rianna Laguna, Insurance:[facility] [id number] [address]Jwz: [facility] Number: [facility] [id number] Repository (HP) Date:[id number] [address]QL: 01/28/2018 Secondary NOT GIVENUNK [place] Insurance:SELF PAY [facility] Number: Effective Repository Date:2018-01-18 06/12/2017 Danny Santillank2521 Primary Danny CrockerOB: [place] Prado Luz Elena, Insurance:[facility] [id number] [address]Xoc: CAREPolicy Number: Hospital [id number] Repository (HP) Date:[id number] [address], [place] [address]KV: 06/12/2017 Secondary NOT GIVENUNK [place] Insurance:SELF PAY [facility] Number: Effective Repository Date:2017-06-12 06/05/2017 Danny Santillank2521 Primary Danny CrockerOB: [place] Rianna Luz Elena, Insurance:[employer] [id number] [id number]: CAREPolicy Number: [facility] [id number] Repository (HP) Date:[id number] [address] [address]HV: 06/05/2017 Secondary NOT GIVENUNK [place] Insurance:SELF PAY [facility] Number: Effective Repository Date:2017-06-03
== END ==
PROVIDERS: Family Provider Internal Medicine; PCP Internal Medicine; Visit Provider Obstetrics & Gynecology
DX: E28.319 Asymptomatic premature menopause (principal); M85.80 Other specified disorders of bone density and structure, unspecified site
CPT/HCPCS: 77080

== ENCOUNTER → 2019-01-14 10:35 | Outpatient (CLI) | payer OTHER, SELFPAY ==
--- NOTE | 2019-01-14 10:37 | BI_ITS ---
MAMMOGRAPHY - BILATERAL SCREENING 3-D TOMOSYNTHESIS REASON FOR EXAM: Female, 48 years old. PERTINENT HISTORY: No significant family history. TECHNIQUE: 2-D mammograms and 3-D Tomosynthesis of the breast (s) were performed. CAD was performed. COMPARISON: June 05, 2017 FINDINGS: The breast composition is heterogeneously dense that may obscure tiny lesions No dense spiculated masses or suspicious microcalcifications are identified. No architectural distortion is identified. There is no skin thickening or nipple retraction. There is a metallic there marker in the midportion of the left breast which formal biopsy before. There has been no significant change since the prior study of June 05, 2017. BI/SCREEN MAMM (CAD) W/KULDIP BILAT IMPRESSION: No mammographic signs of malignancy. Routine yearly mammograms recommended. ASSESSMENT CATEGORY: BIRADS Category 1: Negative. A letter regarding these results will be sent to the patient by the facility within 30 days. FOLLOW UP RECOMMENDATION: Yearly follow up mammogram recommended. (A) Approximately 10% of breast cancers are not detected by mammography. A normal mammogram should not delay biopsy of a clinically suspicious abnormality. Electronically Signed: Vivi Avalos, at 14:19 EST Tel , Service support ,
== END ==
PROVIDERS: Family Provider Internal Medicine; PCP Internal Medicine; Referring Provider Internal Medicine; Visit Provider Internal Medicine
DX: Z12.31 Encounter for screening mammogram for malignant neoplasm of breast (principal)
CPT/HCPCS: 77063; 77067

== ENCOUNTER 2022-12-13 17:04 | Emergency (ER) | payer OTHER, SELFPAY ==
[2022-12-13 17:05] VITALS: BP 135/73; PULSE 70; RESP 14; TEMP 36.3; O2SAT 100; BMI 23.1
--- NOTE | 2022-12-13 17:21 | EDS_ITS ---
HPI History of Present Illness Chief Complaint: Laceration Detail of Chief Complaint: Laceration to right long finger Informant: patient Narrative Narrative: Patient presents the emergency department with complaint of laceration to the right long finger that occurred prior to coming the emergency department. 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 She is right-hand dominant. She is unsure of his last tetanus. [facility] Medical History Osteoarthritis Allergy/AdvReac Type Severity Reaction Status Date / Time azithromycin Allergy Mild Hives Verified 12/13/22 17:06 Sulfa (Sulfonamide Allergy Mild Rash Verified 12/13/22 17:06 Antibiotics) Family History Brother Hypertension Sister Breast cancer CVA (cerebral vascular accident) Melanoma Surgical History S/P section S/P hemorrhoidectomy s/p melanoma removal S/P wisdom tooth extraction Status post hysterectomy Social History (Updated 06/12/17 @ 10:[address] Jeffery Alonso MD) Smoking Status: Never smoker alcohol intake: never ROS ROS ED Review of Systems ROS Unobtainable: other Constitutional Constitutional ED: Reports lethargy; Denies chills, fever(s), sweats or weight loss Eyes Eyes: Denies blurry vision, change in vision or diplopia ENT ENT ED: Denies rhinorrhea or sore throat Cardiovascular Cardiovascular: Denies chest pain, orthopnea or racing heartbeat Respiratory/Chest Respiratory/Chest: Denies cough, dyspnea, dyspnea on exertion, orthopnea or sputum Gastrointestinal Gastrointestinal: Denies abdominal pain, diarrhea, nausea or vomiting Genitourinary Genitourinary ED: Denies dysuria, hematuria or urinary frequency Musculoskeletal Musculoskeletal: Denies arthralgias, back pain, myalgias or neck pain Integumentary Reports other Details: Laceration right long finger ; Denies abscess, Abrasions or rash Neurologic Neurologic: Denies headache(s) or weakness Psychiatric Psychiatric: Denies anxiety, depression or suicidal thoughts Endocrine Endocrinology: Denies polydipsia, polyphagia or polyuria Hematologic/Lymphatic Hematologic/Lymphatic: Denies easy bleeding, easy bruising or lymphadenopathy Allergic/Immunologic Allergic/Immunologic ED: Denies mouth swelling, tongue swelling or urticaria EXAM Physical Exam Const Vital Signs: 12/13/22 17:05 Temperature 97.4 F L Temperature Source Temporal Pulse Rate 70 Respiratory Rate 14 Blood Pressure 135/73 H Blood Pressure Mean 93 Pulse Ox 100 Oxygen Delivery Method Room Air Positive well nourished and well developed General Appearance ED: well developed and NAD HEENT Reports TM's clear and moist mucous membranes normocephalic and atraumatic; Negative for trauma or tenderness Tympanic Membrane ED: Yes TM's clear Eyes PERRL and EOMs intact bilaterally General Eye ED: Negative for pale conjunctiva or scleral icterus Neck no lymphadenopathy, supple and no JVD General: Negative for tenderness Chest Wall inspection of chest normal and palpation of chest normal Chest: Negative for tenderness Resp normal respiratory effort and clear to auscultation bilaterally Effort and Inspection: Negative for respiratory distress or pain with movement Auscultation: Negative for rhonchi, wheezes or diminished lung sounds Cardio regular rate, regular rhythm, S1 normal heart sound, S2 normal heart sound and no murmurs Peripheral Pulses: pulses 2+ throughout GI normal to inspection, nondistended, normoactive bowel sounds, soft to palpation, non-tender, non-distended and no masses Back/Spine no CVA tenderness and no thoracic nor lumbar tenderness Extremity Extremity Narrative: Right long finger-patient has a circular avulsion measuring approximately a centimeter in diameter to the distal pulp of the digit. Small amount of venous oozing. General Extremety ED: Negative for edema General Extremity: Negative for edema Neuro oriented x3, CN's II-XII intact bilaterally, no sensory deficits noted and gait normal Sensorium / Orientation: awake, alert, oriented to person, oriented to place and oriented to time Motor Exam: strength 5/5 throughout and strength abnormal Psych mental status grossly normal Skin no rashes or lesions noted and no wounds MDM MDM MDM Narrative Medical decision making narrative: Patient with dermal avulsion of the tip of the long finger. Wound was irrigated with saline. I used Gelfoam to obtain good hemostasis and clean dressing was applied. Patient was given tetanus booster. Patient advised to follow-up with primary care physician within next 5 to 7 days for wound check. She is to return if increasing pain, redness, swelling, or condition should worsen anyway. Discharge Plan Triage Chief Complaint: Laceration ED Provider: Leobardo Bell Dx/Rx/DC Orders Clinical Impression: Finger laceration Instructions: ED Laceration, Hand: All Closures Primary Care Provider: Joy Arango Referrals: Joy Arango MD [Primary Care Provider] - 5-7 Days Disposition Disposition: Home, Self Care Discharge Date/Time: 12/13/22 17:47
[2022-12-13] MEDS: Diphth,Pertuss(Acell),Tet Vac 0.5 ML Vial IM (17:40)
== END 2022-12-13 17:47 | disposition home or self-care (01) ==
LOC: ED 17:25
PROVIDERS: Emergency Provider Emergency Medicine; PCP Internal Medicine; Visit Provider Emergency Medicine
DX: S61.212A Laceration without foreign body of right middle finger without damage to nail, initial encounter (principal); Z23 Encounter for immunization; X58.XXXA Exposure to other specified factors, initial encounter
CPT/HCPCS: 90471; 90715; 99282

== ENCOUNTER 2024-10-15 14:39 | Emergency (ER) | payer OTHER, SELFPAY ==
[2024-10-15 14:40] VITALS: BP 117/61; PULSE 62; RESP 16; TEMP 36.6; O2SAT 100; BMI 21.4
--- OUTSIDE RECORDS SUMMARY | 2024-10-15 15:57 | XMS RPT_ITS | CCD ---
Author Organization [facility] Care Team Providers Care Charging Plug Placer Name Role Phone Celeste LY, Jeffery [place] Unavailable Raymundo Arango MD Primary Care Provider Raymundo Arango MD Primary Care Provider Raymundo Arango MD Primary Care Provider Taljay, Raymundo D Primary Care Unavailable Leobardo Bell Attending Unavailable Raymundo Arango MD Primary Care Provider Scanlon FOOD TASTER.MECHANICAL SUPERVISOR, Yue Unavailable Rahel FOOD TASTER.SHOE TREER, Laila Unavailable Rahel FOOD TASTER.SHOE TREER, Laila Unavailable Scanlon FOOD TASTER.MECHANICAL SUPERVISOR, Yue Unavailable Scanlon FOOD TASTER.MECHANICAL SUPERVISOR, Yue Unavailable TALAMPAS, RAYMUNDO D Primary Care Unavailable RAHEL LAILA Attending Unavailable SELF Referring Unavailable BRIELLE HANNA Attending Unavail able TALAMPAS, RAYMUNDO D Primary Care Unavailable TALAMPAS, RAYMUNDO D Primary Care Unavailable NEBRIELLE HOUSE Referring Unavail able TALAMPAS, RAYMUNDO D Primary Care Unavailable RAHEL LAILA Referring Unavailable TALAMPAS, RAYMUNDO D Primary Care Unavailable BRIDGET LOPEZ Attending Unavailable BRIELLE HANNA Attending Unavail able TALAMPAS, RAYMUNDO D Primary Care Unavailable TALAMPAS, RAYMUNDO D Primary Care Unavailable Allergies Allergy Classification Reported Allergen(s) Allergy Type Date of Onset Reaction(s) Facility (3 sources) Azithromycin Drug Allergy 10-08-19 [facility] Work Phone: (3 sources) Erythromycin Drug Allergy 10-08-19 [facility] Work Phone: [phone] (3 sources) SULFAMETHOXAZOLE MICRO drug allergy 10-08-19 [facility] Work Phone: (20 sources) Azithromycin; Translations: [AZITHROMYCIN] Drug Allergy 10-06-19 07 Hives [facility] Work Phone: (20 sources) Sulfonamides (Antibiotic); Translations: [SULFA (SULFONAMIDE ANTIBIOTICS)] Propensity to adverse reactions 12-15-19 05 [facility] Work Phone: (16 sources) environment allergies [Other] Propensity to adverse reactions 12-15-19 [facility] Work Phone: (1 source) Sulfonamides (Antibiotic) Allergy to substance 12-14-19 [facility] (1 source) Azithromycin Drug Allergy 12-14-19 [facility] (1 source) Sulfonamides (Antibiotic) Drug allergy (disorder) 12-14-19 [facility] Medications Current Medications Medication Drug Class(es) Dates Sig (Normalized) Sig (Original) cholecalciferol 0.05 mg oral capsule (2 sources) Vitamin D Start: 05-17-2024 Cholecalciferol, Vitamin D3, (VITAMIN D-3) 50 mcg (2,000 unit) cap 05/17/2024 Active cycloSPORINE 0.5 mg/ml ophthalmic suspension (20 sources) Calcineurin Inhibitor Immunosuppressant take 1 drop(s) into the eye(s) twice daily cycloSPORINE (RESTASIS) 0.05 % ophthalmic emulsion 1 Drop twice daily. Active Comment on above: 1 Drop twice daily. 84 hr estradiol 0.51610 mg/hr transdermal system (20 sources) Estrogen Start: 09-30-2023 End: 05-02-2025 estradiol (VIVELLE-DOT) 0.05 mg/24 hr patch Indications: Hormone replacement therapy (HRT) Apply 1 Patch as directed two times a week. TWICE WEEKLY 8 Patch 11 05/02/2024 05/02/2025 Active Start: 04-17-2022 estradiol (EST RACE) 0.01 % (0.1 mg/gram) vaginal cream Use fingertip amount nightly x 2 weeks, then use 3 times weekly. 42.5 g 1 04/17/2022 Active Start: 04-01-2021 End: 09-30-2023 take 1 tablet by mouth once daily estradiol (ESTRACE) 1 mg tablet Take 1 tablet by mouth once daily. 90 tablet 4 07/08/2022 Active Start: 10-07-2016 SAMUEL 0.1 MG/2 4HR PTTW ESTRADIOL [id number] Jeffery Alonso MD Comment on above: Take 1 tablet by lavern th once daily. Use fingertip amount nightly x 2 weeks, then use 3 times weekly. iv contrast (will be provided with radiology test) (1 source) Start: 06-20-2024 End: 06-21-2024 iv contrast (will be provided with radiology test) Indications: Fibrocystic breast changes of both breasts , Family history of breast cancer , Family history of ovarian cancer , Heterogeneously dense tissue of both breasts on mammography , Increased risk of breast cancer MRI Breast JOVAN Inject, intravenously, once for 1 dose. No IV access, insert saline lock prior to the beginning of sedation, infusion, injection of imaging exam. Discontinue saline lock post exam. If Pt has a central line or IVAD, may access for administration according to line specific nursing protocol. Once exam is complete flush line and de-access according to line specific nursing protocol in the MR contrast administration guidelines link 1 each 06/20/2024 06/21/2024 Active MULTI-VITAMIN ORAL (20 sources) MULTI-VITAMIN OR AL Take by mouth. Active MULTI-VITAMIN OR AL Take by mouth. 0 Active Comment on above: Take by mouth. TYRVAYA 0.03 mg/spray nasal spray (19 sources) Start: 01-27-2023 take 1 spray(s) nasal route twice daily TYRVAYA 0.03 mg/spray nasal spray Use 1 [place] in each nostril two times a day. 01/27/2023 Active Start: 01-27-2023 take 1 spray(s) nasa l route twice daily TYRVAYA 0.03 mg/spray nasal spray Use 1 [place] in each nostril two times a day. 0 01/27/2023 Active Comment on above: Use 1 [place] in each nostril two times a day. Completed/Discontinued Medications Medication Drug Class(es) Dates Sig (Normalized) Sig (Original) benzonatate 100 mg oral capsule (4 sources) Non-narcotic Antitussive Start: 08-27-2021 End: 03-02-2022 take 1 capsule by mouth every eight hours as needed benzonatate (TESSALON PERLES) 100 mg capsule Take 1 capsule by mouth three times daily as needed for cough. 30 capsule 0 08/27/2021 03/02/2022 Discontinued Comment on above: Take 1 capsule by mo [facility] three times daily as needed for cough. brompheniramine maleate 0.2 mg/ml / pseudoephedrine hydrochloride 3 mg/ml oral solution (1 source) alpha-Adrenergic Agonist Start: 02-10-2022 End: 02-10-2022 take 5 mL by mouth four times daily brompheniramine-p seudoephedrine (RYNEX PSE,VALU-CHRIS) 1-15 mg/5 mL liqd Take 5 mL by mouth four times daily. 120 mL 0 02/10/2022 02/10/2022 Discontinued Comment on above: Take 5 mL by mouth f our times daily. evening primrose oil 500 mg oral capsule (12 sources) Start: 05-17-2022 End: 04-22-2024 take 1 capsule by mouth once daily Evening [place] Oil 500 mg cap Take 1 capsule by mouth once daily. 05/17/2022 04/22/2024 Discontinued Comment on above: Take 1 capsule by [facility] once daily. L.acid/B.bifidum/B.an imal/FOS (PROBIOTIC COMPLEX ORAL) (8 sources) L.acid/B.bifidum / B.animal/FOS (PROBIOTIC COMPLEX ORAL) Take by mouth. 0 Active Comment on above: Take by mouth. predniSONE 10 mg oral tablet (5 sources) Start: 02-10-2022 predniSONE (DELTASONE) 10 mg tablet Take 4 tabs daily for 3 days, then 2 tabs daily for 3 days, then 1 tab daily for 3 days with food. 21 tablet 0 02/10/2022 Active Comment on above: Take 4 tabs daily fo r 3 days, then 2 tabs daily for 3 days, then 1 tab daily for 3 days with food. 72 hr scopolamine 0.0139 mg/hr transdermal system (9 sources) Anticholinergic Start: 01-18-2021 End: 01-24-2022 scopolamine (TRANSDERM-SCOP) patch 1.5 mg/72 hr (delivers 1 mg over 3 days) Indications: Hx of motion sickness Apply 1 Patch as directed every 72 hours. Apply patch to skin behind ear 4hrs prior to travel. 4 Patch 0 01/24/2022 Active Comment on above: Apply 1 Patch as dir ected every 72 hours. Apply patch to skin behind ear 4hrs prior to travel. Problems Active Problems Problem Classification Problem Date Documented Date Episodic/Chronic Complications of surgical procedures or medical care (13 sources) Postsurgical menopause; Translations: [Asymptomatic postprocedural ovarian failure] Onset: 09-30-2023 09-30-2023 Chronic Disorders of lipid metabolism (20 sources) Mixed hyperlipidemia; Translations: [Mixed hyperlipidemia] Onset: 05-03-2008 06-16-2017 Chronic Immunizations and screening for infectious disease (5 sources) Vaccination needed; Translations: [Encounter for immunization] Episodic Melanomas of skin (20 sources) Malignant melanoma of skin of lower limb; Translations: [Malignant melanoma of unspecified lower limb, including hip] Onset: 02-04-2008 06-12-2008 Chronic Nonmalignant breast conditions (4 sources) Fibrocystic changes of bilateral breasts; Translations: [Diffuse cystic mastopathy of right breast] Onset: 06-20-2024 06-20-2024 Chronic Nonmalignant breast conditions (2 sources) Heterogeneously dense breast composition; Translations: [Heterogeneously dense tissue of both breasts on mammography] 06-20-2024 Episodic Open wounds of extremities (1 source) Laceration of finger; Translations: [Laceration without foreign body of unspecified finger without damage to nail, initial encounter] 12-13-2022 Episodic Other aftercare (2 sources) Drug therapy finding; Translations: [Encounter for therapeutic drug level monitoring] 04-20-2023 Episodic Other aftercare (3 sources) Patient encounter status; Translations: [Encounter for therapeutic drug level monitoring] 04-22-2024 Episodic Other bone disease and musculoskeletal deformities (20 sources) Osteopenia; Translations: [Other specified disorders of bone density and structure, unspecified site] 07-11-2011 Episodic Other upper respiratory infections (1 source) Acute upper respiratory infection; Translations: [Acute upper respiratory infection, unspecified] Episodic Residual codes; unclassified (1 source) History of clinical finding in subject; Translations: [Personal history of other specified conditions] Episodic Residual codes; unclassified (2 sources) Family history of malignant neoplasm of ovary; Translations: [Family history of malignant neoplasm of ovary] 06-20-2024 Episodic Residual codes; unclassified (2 sources) Other specified personal risk factors, not elsewhere classified; Translations: [Other specified personal history presenting hazards to health] Onset: 06-20-2024 06-20-2024 Episodic Residual codes; unclassified (1 source) Family history of malignant neoplasm of ovary; Translations: [Family history of ovarian cancer] Onset: 06-20-2024 Episodic Thyroid disorders (1 source) Goiter; Translations: [Nontoxic goiter, unspecified] Chronic Unclassified (2 sources) Increased risk of breast cancer 06-20-2024 Unclassified (1 source) Heterogeneously dense tissue of both breasts on mammography; Translations: [Heterogeneously dense tissue of both breasts on mammography] Onset: 06-20-2024 Past or Other Problems Problem Classification Problem Date Documented Da te Episodic/Chronic Cancer of cervix (20 sources) History of malignant neoplasm of cervix; Translations: [Personal history of malignant neoplasm of cervix uteri] Onset: 02-04-2008 06-12-2008 Episodic Hemorrhoids (20 sources) Thrombosed external hemorrhoids; Translations: [Perianal venous thrombosis] Onset: 12-30-2004 06-12-2008 Episodic Menopausal disorders (1 source) Hormone replacement therapy; Translations: [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 therapy] Onset: 09-30-2023 Episodic Other aftercare (1 source) Encounter for therapeutic drug level monitoring; Translations: [Encounter for therapeutic drug monitoring] Onset: 05-12-2024 Episodic Other bone disease and musculoskeletal deformities (1 source) Other specified disorders of bone density and structure, unspecified site; Translations: [Osteopenia, unspecified location] Onset: 07-11-2011 Episodic Other screening for suspected conditions (not mental disorders or infectious disease) (19 sources) Mammography abnormal; Translations: [Patient encounter status] Onset: 10-07-2016 10-08-2016 Episodic Residual codes; unclassified (20 sources) Family history of breast cancer; Translations: [Family history of malignant neoplasm of breast] Onset: 10-23-2009 10-23-2009 Episodic Residual codes; unclassified (1 source) Family history of malignant neoplasm of breast; Translations: [Family history of breast cancer] Onset: 10-23-2009 Episodic Unclassified (1 source) s/p melanoma removal 09-05-2021 Unclassified (1 source) Patient encounter status 05-02-2024 Results Test Name Value Interpretation Reference Range Facility [facility] LIZETTEMERISSA Bean ([id number]) 1970 F Date Time Provider Department 08/24/24 BRIDGET LOPEZ BRIANNEOR During your visit today, we recorded the following information about you: Shruti Ibarra 08/24/2024 12:41 PM Signed Outside clinical documents scanned into [employer] and cd taken to [employer] to upload images. Thanks Allergies As of Date: 08/24/2024 Noted Allergy Reaction AZITHROMYCIN 10/05/2006 4 - Hives SULFA (SULFONAMIDE ANTIBIOTICS) 12/14/2004 2 - Rash Date Reviewed: 06/20/2024 Reviewed by: Bridget Lopez APRN.SHOE TREER - Fully Assessed Reason for Visit: Received Outside Medical Records [[id number]] Prescriptions as of 08/24/2024 - Cholecalciferol, Vitamin D3, (VITAMIN D-3) 50 mcg (2,000 unit) cap - estradiol (VIVELLE-DOT) 0.05 mg/24 hr patch Apply 1 Patch as directed two times a week. TWICE WEEKLY - TYRVAYA 0.03 mg/spray nasal spray Use 1 [place] in each nostril two times a day. - cycloSPORINE (RESTASIS) 0.05 % ophthalmic emulsion 1 Drop twice daily. - MULTI-VITAMIN ORAL Take by mouth. Problem List As Of Date 08/24/2024 Noted Resolved HEMORRHOIDS EXTERNAL THROMBOSED [K64.5] 12/30/2004 PERS HX CERVICAL MALIGNANCY [Z85.41] 02/04/2008 MALIG MELANOMA LEG [C43.70] 02/04/2008 Hyperlipidemia, mixed [E78.2] 05/03/2008 Family History of Breast Cancer [Z80.3] 10/23/2009 Osteopenia [M85.80] 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 thera*09/30/2023 Encounter Status:Closed by SHRUTI IBARRA on 08/24/[address] [facility] CNOVon 06-20-2024 [facility] MERISSA HERNÁNDEZ ([id number]) 1970 F Date Time Provider Department 06/20/24 10:[address] [facility] During your visit today, we recorded the following information about you: Weight Height 61.2 kg 1.676 m Bridget Lopez APRN.SHOE TREER 06/20/2024 4:45 PM Signed MEDICAL BREAST PATIENT NAME: Merissa Hernández June 19, 2024 REFERRAL: She is referred by Brielle Hanna MD for an opinion regarding risk assessment. My final recommendations will be communicated back to the requesting physician by the way of the shared medical record, fax, or via US Mail. HISTORY of PRESENT ILLNESS: Merissa Hernández is a 54 year old postmenopausal female who presents to the [facility] today for risk assessment and to establish breast care. DBT mammogram was completed 05/13/24 with negative findings. Her LRS was calculated using the TC risk assessment model and determined to be 28.5% risk for developing breast cancer. She was referred to breast center for risk assessment The patient denies any breast masses, pain, skin changes, or nipple discharge. Genetic Testing: No No results found for: VITD25 She takes vitamin D 2000 units and a multivitamin daily. BMD: Date: 06/18/23; lowest T Score - 1.2; Diagnosis: Osteopenia Left hip PERSONAL BREAST HISTORY: Breast biopsy: 2008 per pt-benign Breast cysts: No Breast surgery: No Breast cancer: No CANCER SURVEILLANCE: Mammograms: Date in [facility]: 05/12/24; results - Negative Breast MRI: No Colonoscopy: Date in [facility]: 08/10/20; results - TA RISK FACTORS FOR BREAST CANCER: Age at the onset of menses: 11 years of age. P: 1 Age at the of first child: 32 years of age. She breast fed for 3 months total. Age at menopause: The patient underwent surgical menopause at age 36. Post-menopausal hormone therapy: Yes, ERT since 2006 She is S/P total hysterectomy with pathology cervical cancer; Date: 2006 She has had a hysterectomy and does not use control. History of Mantle Radiation prior to the age of 30: No Obesity: -Last 1 Encounter Wt Readings: Date: Wt: 05/02/2024 61.2 kg (135 lb) -21.79 kg/m2 Mammographic density: The breasts are heterogeneously dense which limits the sensitivity of mammography Personal History of Benign Atypical Breast Biopsy: No Alcohol use: Rare PAST MEDICAL HISTORY: Patient specifically denies history of: DVT, PE, migraine headaches without aura, abnormal uterine bleeding, abnormal uterine biopsies, osteopenia, and osteoporosis.+Migraine with auras SOCIAL HISTORY: Social History Tobacco Use Smoking status: Never Smokeless tobacco: Never Vaping Use Vaping status: Never Used Substance Use Topics Alcohol use: Yes Comment: couple times a year only Drug use: No Caffeine intake: 1-2 x per week Exercise: 30 minutes/5 times a week or more FAMILY HISTORY: Family history of breast cancer: Sister dx at age 47-alive and well-no genetic testing (currently 68) and Pa dx 70's Family history of ovarian cancer: [place] dx at age 50- Number of sisters: 2 (unaffected sister had negative genetic testing) Number of maternal aunts: 3 Number of paternal aunts: 3 Ashkenazi Ancestry: no Other Cancer: Sister dx melanoma at age 54 and 60 There is no family history of prostate, colon, uterine, pancreatic, gastric, brain, renal cell or thyroid cancer. There is no family history of sarcoma or leukemia. Osteoporosis: Mother dx 50's- Stroke: MGM dx 70's- Blood Clot: None Heart attack: None Thyroid Nodule or Goiter: MGM Autism: None REVIEW OF SYSTEMS: The patient specifically denies unintentional weight loss, insomnia, hot flashes, night sweats, abnormal swelling in the arms or legs, chest pain, shortness of breath, persistant cough, heartburn, urinary incontinence, vaginal dryness, decreased libido, unusual bony pains or severe headaches. The sensitive examination was discussed with the Patient or Patient's Authorized Photographic Equipment Assembler. As applicable, any other physician, advance practice provider, medical student, or other health professional student that will be observing or involved in the sensitive examination for educational or training purposes was discussed with the Patient or Authorized Photographic Equipment Assembler. The Patient or Authorized Photographic Equipment Assembler has agreed to proceed with the sensitive examination. (Sensitive examination includes inspection and/or palpation of the breasts, pelvis, prostate and anorectal regions) PHYSICAL EXAM: Ht 167.6 cm (5' 6) Wt 61.2 kg (135 lb) LMP 12/13/2004 BMI 21.79 kg/m? General: well-nourished, healthy, white, female, alert and oriented x 3, calm Skin: warm, dry, skin color, texture, turgor normal Head/Eyes: normocephalic, atraumatic, and anicteric Lymph nodes- The supraclavicula (more content not included)... Normal [facility] CNPDiana 06-02-2024 CNPN Telephone (BRCRAV) MERISSA HERNÁNDEZ ([id number]) 1970 F Date Time Provider Department 06/02/24 MARIAA ORDONEZ During your visit today, we recorded the following information about you: Julieta Mitchell, RN 06/02/2024 11:25 AM Signed Patient is scheduled with Dr Ordonez but does not need surgical intervention at this time She would like to be followed in medical breast for high risk Please reschedule with a medical breast provider Allergies As of Date: 06/02/2024 Noted Allergy Reaction AZITHROMYCIN 10/05/2006 4 - Hives SULFA (SULFONAMIDE ANTIBIOTICS) 12/14/2004 2 - Rash Date Reviewed: 05/02/2024 Reviewed by: Vicki Diaz MA - Fully Assessed Reason for Visit: Appointment [[id number]] Prescriptions as of 06/28/2024 - Cholecalciferol, Vitamin D3, (VITAMIN D-3) 50 mcg (2,000 unit) cap - estradiol (VIVELLE-DOT) 0.05 mg/24 hr patch Apply 1 Patch as directed two times a week. TWICE WEEKLY - TYRVAYA 0.03 mg/spray nasal spray Use 1 [place] in each nostril two times a day. - cycloSPORINE (RESTASIS) 0.05 % ophthalmic emulsion 1 Drop twice daily. - MULTI-VITAMIN ORAL Take by mouth. Problem List As Of Date 06/02/2024 Noted Resolved HEMORRHOIDS EXTERNAL THROMBOSED [K64.5] 12/30/2004 PERS HX CERVICAL MALIGNANCY [Z85.41] 02/04/2008 MALIG MELANOMA LEG [C43.70] 02/04/2008 Hyperlipidemia, mixed [E78.2] 05/03/2008 Family History of Breast Cancer [Z80.3] 10/23/2009 Osteopenia [M85.80] 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 thera*09/30/2023 Encounter Status:Closed by JULIETA MITCHELL on 06/28/24 Normal [facility] Comprehensive metabolic 2000 panelon 05-12-2024 Albumin [Mass/Vol] 4.5 g/dL Normal 3.9-4.9 [facility] Comment on above: Order Comment: Speci men Type: BLOOD SPECIMENOrdering Facility: [facility] Address: [address] [place] [address] Performed By: #### 2 4323-8 ####[facility] [id number] [place] [address] [place] ALP [Catalytic activity/Vol] 66 U/L Normal 34-123 [facility] Comment on above: Order Comment: Speci men Type: BLOOD SPECIMENOrdering Facility: [facility] Address: [address] [place] [address] Performed By: #### 2 4323-8 ####[facility] [id number] [place] [address] [place] ALT [Catalytic activity/Vol] 17 U/L Normal 7-38 [facility] Comment on above: Order Comment: Speci men Type: BLOOD SPECIMENOrdering Facility: [facility] Address: [address] [place] [address] Performed By: #### 2 4323-8 ####[facility] MILLTOWNCLIA [id number] [place] [address] [place] Anion gap [Moles/Vol] 8 mmol/L Normal 8-15 [facility] Comment on above: Order Comment: Speci men Type: BLOOD SPECIMENOrdering Facility: [facility] Address: [address] [place] [address] Performed By: #### 2 4323-8 ####[facility]ITALWDELFINALIA [id number] [place] [address] [place] AST [Catalytic activity/Vol] 20 U/L Normal 13-35 [facility] Comment on above: Order Comment: Speci men Type: BLOOD SPECIMENOrdering Facility: [facility] Address: [address] [place] [address] Performed By: #### 2 4323-8 ####[facility]ITALWDELFINALIA [id number] [place] [address] [place] Bilirubin [Mass/Vol] 1.0 mg/dL Normal 0.2-1.3 [facility] Comment on above: Order Comment: Speci men Type: BLOOD SPECIMENOrdering Facility: [facility] Address: [address] [place] [address] Performed By: #### 2 4323-8 ####[facility] [id number] [place] [address] [place] Calcium [Mass/Vol] 9.2 mg/dL Normal 8.5-10.2 [facility] Comment on above: Order Comment: Speci men Type: BLOOD SPECIMENOrdering Facility: [facility] Address: [address] [place] [address] Performed By: #### 2 4323-8 ####[facility]ITALNCL[facility] [id number] [place] [address] [place] Chloride [Moles/Vol] 104 mmol/L Normal 98-107 [facility] Comment on above: Order Comment: Speci men Type: BLOOD SPECIMENOrdering Facility: [facility] Address: [address] [place] [address] Performed By: #### 2 4323-8 ####[facility] [id number] [place] [address] [place] CO2 [Moles/Vol] 27 mmol/L Normal 22-30 [facility] Comment on above: Order Comment: Speci men Type: BLOOD SPECIMENOrdering Facility: [facility] Address: [address] [place] [address] Performed By: #### 2 4323-8 ####[facility]ENTERLIA [id number] [place] [address] [place] Creatinine [Mass/Vol] 0.69 mg/dL Normal 0.58-0.96 [facility] Comment on above: Order Comment: Speci men Type: BLOOD SPECIMENOrdering Facility: [facility] Address: [address] [place] [address] Performed By: #### 2 4323-8 ####[facility]ITAL[facility]CL[facility] [id number] [place] [address] [place] Creatinine and Glomerular filtration rate.predicted panel (S/P/Bld) 104 mL/min/1.73m??? Normal >=60 [facility] Comment on above: Order Comment: Speci men Type: BLOOD SPECIMENOrdering Facility: [facility] Address: [address] [place] [address] Result Comment: Nayana mated Glomerular Filtration Rate (eGFR) is calculated using the 2020 CKD-EPI creatinine equation. This equation utilizes serum creatinine, sex, and age as parameters. The creatinine assay has traceable calibration to isotope dilution-mass spectrometry. Refer to KDIGO guidelines for clinical interpretation. In patients with unstable renal function, e.g. those with acute kidney injury, the eGFR may not accurately reflect actual GFR. Performed By: #### 2 4323-8 ####[facility] [id number] [place] [address] [place] Glucose [Mass/Vol] 100 mg/dL High 74-99 [facility] Comment on above: Order Comment: Efrain rogel Type: BLOOD SPECIMENOrdering Facility: [facility] Address: [address] [place] [address] Result Comment: The [place] Diabetes Association (ADA) provides guidance for cutoff values for fasting glucose and random glucose. The ADA defines fasting as no caloric intake for at least 8 hours. Fasting plasma glucose results between 100 to 125 [...] Standards of Medical Care in Diabetes 2016, [place] [employer] Association. Diabetes Care. 2016.39(Suppl 1). Performed By: #### 2 4323-8 ####[facility] [id number] [place] [address] [place] Potassium [Moles/Vol] 3.9 mmol/L Normal 3.7-5.1 [facility] Comment on above: Order Comment: Efrain rogel Type: BLOOD SPECIMENOrdering Facility: [facility] Address: [address] [place] [address] Performed By: #### 2 4323-8 ####[facility] [id number] [place] [address] [place] Protein [Mass/Vol] 7.1 g/dL Normal 6.3-8.0 [facility] Comment on above: Order Comment: Speci men Type: BLOOD SPECIMENOrdering Facility: [facility] Address: [address] [place] [address] Performed By: #### 2 4323-8 ####[facility] [id number] [place] [address] [place] Sodium [Moles/Vol] 139 mmol/L Normal 136-144 [facility] Comment on above: Order Comment: Speci men Type: BLOOD SPECIMENOrdering Facility: [facility] Address: [address] [place] [address] Performed By: #### 2 4323-8 ####[facility] [id number] [place] [address] [place] Urea nitrogen [Mass/Vol] 18 mg/dL Normal 7-21 [facility] Comment on above: Order Comment: Speci men Type: BLOOD SPECIMENOrdering Facility: [facility] Address: [address] [place] [address] Performed By: #### 2 4323-8 ####[facility] [id number] [place] [address] [place] Lipid 1996 panelon 5 Cholesterol [Mass/Vol] 232 mg/dL High <200 [facility] Comment on above: Order Comment: Speci men Type: BLOOD SPECIMENOrdering Facility: [facility] Address: [address] [place] [address] Result Comment: <200 mg/dL, Desirable 200-239 mg/dL, Borderline high >239 mg/dL, High Performed By: #### 2 4331-1 ####[facility] [id number] [address] STATES OF [facility] [id number] [address] Cholesterol in HDL [Mass/Vol] 86 mg/dL Normal >39 [facility] Comment on above: Order Comment: Efrain rogel Type: BLOOD SPECIMENOrdering Facility: [facility] Address: [address] [place] [address] Result Comment: 40-5 9 mg/dL, Acceptable >59 mg/dL, High: Negative risk factor for coronary heart disease <40 mg/dL, Low: Positive risk factor for coronary heart disease Performed By: #### 2 4331-1 ####[facility] [id number] [address] [id number] [place] [address] Cholesterol in LDL [Mass/Vol] 135 mg/dL High <100 [facility] Comment on above: Order Comment: Efrain rogel Type: BLOOD SPECIMENOrdering Facility: [facility] Address: [address] [place] [address] Result Comment: <100 mg/dL, Optimal 100-129 mg/dL, Near optimal/above optimal 130-159 mg/dL, Borderline high 160-189 mg/dL, High >189 mg/dL, Very high Secondary prevention optimal LDL Cholesterol levels are recommended to be < 70 mg/dL Performed By: #### 2 4331-1 ####[facility] [id number] [address] [id number] [place] [address] OF [facility] Cholesterol in LDL/Cholesterol in HDL [Mass ratio] 1.57 {ratio} Normal <2.54 [facility] Comment on above: Order Comment: Efrain juan f Type: BLOOD SPECIMENOrdering Facility: [facility] Address: [address] [place] [address] Result Comment: Refe rence: 1. National Cholesterol Education Program ATP III Guideline At-A-Glance Quick Desk Reference: National Heart, Lung, and Blood [place]. National Institutes of Health. 2001: NIH Publication No. 01-3305. 2. An International Atherosclerosis Society position paper: global recommendations for the management of dyslipidemia: executive summary, Atherosclerosis. 2014: 232(2):410-413. Performed By: #### 2 4331-1 ####[facility] [id number] [address] [id number] [address] [place] Cholesterol in VLDL [Mass/Vol] 11 mg/dL Normal <30 [facility] Comment on above: Order Comment: Speci men Type: BLOOD SPECIMENOrdering Facility: [facility] Address: [address] [place] [address] Performed By: #### 2 4331-1 ####[facility] [id number] [address] [id number] [place] [address] [place] Cholesterol non HDL [Mass/Vol] 146 mg/dL High <130 [facility] Comment on above: Order Comment: Speci men Type: BLOOD SPECIMENOrdering Facility: [facility] Address: [address] [place] [address] Result Comment: <130 mg/dL, Optimal 130-159 mg/dL, Near optimal/above optimal 160-189 mg/dL, Borderline high 190-219 mg/dL, High >219 mg/dL, Very high Secondary prevention optimal non HDL Cholesterol levels are recommended to be <100 mg/dL Performed By: #### 2 4331-1 ####[facility] [id number] [address] [id number] [address] OF [place] Cholesterol.total/C holesterol in HDL [Mass ratio] 2.70 {ratio} Normal <5.10 [facility] Comment on above: Order Comment: Speci men Type: BLOOD SPECIMENOrdering Facility: [facility] Address: [address] [place], [place] [address] Performed By: #### 2 4331-1 ####[facility] [id number] [place] [id number] [facility] [id number] [place] [address] [place] FASTING TIME 13 hrs Normal [facility] Comment on above: Order Comment: Speci men Type: BLOOD SPECIMENOrdering Facility: [facility] Address: [address] [place], [place] [address] Performed By: #### 2 4331-1 ####[facility] [id number] [address] [id number] [place] [address] [place] Triglyceride [Mass/Vol] 54 mg/dL Normal <150 [facility] Comment on above: Order Comment: Speci men Type: BLOOD SPECIMENOrdering Facility: [facility] Address: [address] [place] [address] Result Comment: <150 mg/dL, Normal 150-199 mg/dL, Borderline high 200-499 mg/dL, High >499 mg/dL, Very high Performed By: #### 2 4331-1 ####[facility] [id number] [address] [id number] [address] [place] RAMON SCREENING W TOMOon 05-12 RAMON SCREENING W KULDIP * * *Final Report* * * DATE OF EXAM: May 12 2024 10:00AM [facility] [id number] - RAMON SCREENING W KULDIP / PROCEDURE REASON: Encounter for screening mammogram for breast cancer * * * * Physician Interpretation * * * * RESULT: [place] [address] #[id number] - RAMON SCREENING W KULDIP HISTORY: 53 year-old patient seen for screening. Patient is asymptomatic in both breasts. Patient states no personal history of breast cancer. The patient has a family history of breast cancer. COMPARISON STUDIES: The present examination has been compared to prior imaging studies dated 02/20/2020 (mammogram), 03/28/2021 (mammogram), 04/17/2022 (mammogram) and 05/07/2023 (mammogram). MAMMOGRAM TECHNIQUE: The study was acquired using full field digital technology and interpreted from soft copy. Digital Breast Tomosynthesis (DBT) images were obtained and used to assist in the interpretation of this examination. MAMMOGRAM FINDINGS: The breasts are heterogeneously dense, which may obscure small masses. No suspicious masses, calcifications or other abnormalities are seen in either breast. There are no significant interval changes. IMPRESSION: There is no mammographic evidence of malignancy in either breast. Routine screening mammogram is recommended. Annual mammogram will be due in 1 year. BI-RADS Category 1: Negative RISK: Based on the Tyrer-Cuzick (TC) risk assessment model, this patient has a 28.5% lifetime risk of developing breast cancer, meaning they are at high risk for developing breast cancer. However, this is only an estimate based on available history provided on the patient's questionnaire. Because patients with a lifetime risk of 20% or greater may benefit from additional supplemental screening, we encourage a full breast clinical evaluation and comprehensive breast cancer risk assessment to guide further decision making. For more information regarding the management of high-risk patients, the following is a link to the [facility] care path [email or web address]/ ?pnzre=61274. Additionally, a referral to the [facility] is also appropriate. Interpreting Radiologist: Ethan Durán M.D. Electronically signed on: 05/13/2024 Costing Manager: VIKTORIYA Transcribe Date/Time: May 12 2024 9:49A Dictated by: ETHAN DURÁN MD This examination was interpreted and the report reviewed and electronically signed by: ETHAN DURÁN MD on May 13 2024 10:37PM EST [id number] Normal [facility] CNOVon 05-02-2024 CNOV Office Visit (OBGYWM ) MERISSA HERNÁNDEZ ([id number]) 1970 F Date Time Provider Department 05/02/24 2:00 PM BRIELLE HANNA OBGYWM During your visit today, we recorded the following information about you: Blood pressure Weight Height 106/60 61.2 kg 1.676 m Brielle Hanna MD 05/02/2024 2:29 PM Signed Guide offered: Patient declines. Merissa is a 53 year old who presents for an annual gynecologic exam without complaints. Daughter turned 21- went to [place] with her. Happy with vivelle dot- less breast tenderness. Postmenopausal: Yes since age 36 HYST with BSO HRT use: Yes, vivelle dot Still get period: No Menopause symptoms: None Time with current partner: 35 years Number of lifetime partners: 3 control frequency: Always HPV vaccine: No; Last pap smear: 2023 History of abnormal pap: Yes, history of abnormal PAP smears Bothersome pelvic pain: No Last mammogram: 2023 normal History of abnormal mammogram: No OB History Gravida1 Para1 Term0 Preterm0 AB0 Living0 SAB0 IAB0 Ectopic0 Multiple0 Live Births0 Problem Relation Age of Onset Breast Cancer Sister Heart Father Lung Cancer Father smoker Melanoma Sister Hypertension Brother SOCIAL HISTORY Social History Tobacco Use Smoking status: Never Smokeless tobacco: Never Vaping Use Vaping status: Never Used Substance Use Topics Alcohol use: Yes Comment: couple times a year only Drug use: No REVIEW OF SYSTEMS Abdomen: No abdominal pain, nausea, vomiting, diarrhea, or constipation. No bloating, early satiety, indigestion, or increased flatulence. Bladder: No dysuria, gross hematuria, urinary frequency, urinary urgency, or incontinence Breast: No breast lumps, nipple d/c, overlying skin changes, redness or skin retraction Allergies and current medication updated:Yes SENSITIVE EXAM: The sensitive examination was discussed with the Patient or Patient's Authorized Photographic Equipment Assembler. As applicable, any other physician, advance practice provider, medical student, or other health professional student that will be observing or involved in the sensitive examination for educational or training purposes was discussed with the Patient or Authorized Photographic Equipment Assembler. The Patient or Authorized Photographic Equipment Assembler has agreed to proceed with the sensitive examination. (Sensitive examination includes inspection and/or palpation of the breasts, pelvis, prostate and anorectal regions). EXAM: BP 106/60 Ht 5' 6 (1.68m) Wt 135 lb (61.2kg) LMP 12/13/2004 BMI 21.80 kg/(m2). GENERAL: pleasant, female in no apparent distress HEENT: Normocephalic, atraumatic, mucus membranes moist, and no lesions NECK: Supple, full range of motion, no adenopathy, and thyroid normal DERMATOLOGY: Normal, without lesions, non-icteric, and non-hirsute BREAST: soft, non-tender, symmetric, no dominant mass, normal nipple-areolar complex, no lymphadenopathy, and no nipple discharge CHEST: Normal inspiratory effort ABDOMEN: soft, non-tender, and no masses PELVIC: external genitalia normal, normal Bartholin's glands, urethra, Lavinia's glands, no vulvar lesions, good vaginal support, physiologic discharge present, normal appearing perineal body and perianal region, cervix surgically absent BIMANUAL: no adnexal masses, non-tender, and uterus surgically absent RECTOVAGINAL: deferred. NEURO: alert and oriented x3,exam grossly non-focal EXTREMITIES: normal ASSESSMENT/PLAN: 1) Health maintenance: Pap/HPV up to date. Mammogram ordered Mammogram up to date Nutrition, exercise and routine health maintenance exams reviewed. Calcium/Vitamin D supplementation information provided. Colon cancer screening: up to date with screening BMD: up to date 2) Follow up one year or sooner as needed 3) continue HRT Brielle Muñoz MD Allergies As of Date: 05/02/2024 Noted Allergy Reaction AZITHROMYCIN 10/05/2006 4 - Hives SULFA (SULFONAMIDE ANTIBIOTICS) 12/14/2004 2 - Rash Date Reviewed: 05/02/2024 Reviewed by: Vicki Diaz MA - Fully Assessed Primary Visit Diagnosis:Encounter for gynecological examination (general) (routine) without abnormal findings [Z01.419] Other Visit Diagnoses:Encounter for screening mammogram for breast cancer [Z12.31] Hormone replacement therapy (HRT) [Z79.890] Order(s):RAMON SCREENING W KULDIP [[id number]] Order #: [id number] FUTURE estradiol (VIVELLE-DOT) 0.05 mg/24 hr patchApply 1 Patch as directed two times a week. TWICE WEEKLYDisp: 8 PatchRfl: 11 Prescriptions as of 05/02/2024 - estradiol (VIVELLE-DOT) 0.05 mg/24 hr patch Apply 1 Patch as directed two times a week. TWICE WEEKLY - TYRVAYA 0.03 mg/spray nasal spray Use 1 [place] in each nostril two times a day. - cycloSPORINE (RESTASIS) 0.05 % ophthalmic emulsion 1 Drop twice daily. - MULTI-VITAMIN ORAL Take by tabitha (more content not included)... Normal [facility] CNOVon 04-22-2024 CNOV Office Visit (INTMWS ) LIZETTENEW BeanDI Shey ([id number]) 1970 F Date Time Provider Department 04/22/24 11:00 AM LAILA GRIMES INTMWS During your visit today, we recorded the following information about you: Pulse Blood pressure Weight Height 75/minute 110/70 60.1 kg 1.67 m Laila Grimes APRN.SHOE TREER 04/22/2024 11:32 AM Signed CHIEF COMPLAINT: Patient presents with: Physical HISTORY: Merissa Kat Lizettesusan is a 53 year old female who presents 04/22/2024 for her Yearly Physical Exam. They are here today for a wellness exam. Generally feels well and does not have complaints. Is able to complete ADL's with independence. Colonoscopy from 2020 had pathology of a tubular adenoma. Dr. Diaz recommended 5 year follow up. Bone density from 2023 showed osteopenia. 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 No Q2: Over the past two weeks, have you felt little interest or pleasure in doing things? 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 Family Hx Breast CA: sister and aunt with breast ca Family Hx Colon CA: no Past Medical History: PAST MEDICAL HISTORY Diagnosis Date Abnormal mammogram, unspecified left breast Family history of breast cancer Malignant melanoma of skin of lower limb, including hip (HCC) 02/04/2008 Malignant neoplasm of cervix uteri, unspecified site 05/28/06 had a hysterectomy due to the cervical cancer Mitral valve disorders(424.0) last echo was normal; gets occasional palpitations Osteopenia Family Medical History: FAMILY HISTORY Problem Relation Age of Onset Breast Cancer Sister Heart Father Lung Cancer Father smoker Melanoma Sister Hypertension Brother Social History: Social History Tobacco Use Smoking status: Never Smokeless tobacco: Never Vaping Use Vaping status: Never Used Substance Use Topics Alcohol use: Yes Comment: couple times a year only Drug use: No Allergies: ALLERGIES Allergen Reactions Azithromycin Hives Sulfa (Sulfonamide * Rash Medications: Current Outpatient Medications Medication Sig TYRVAYA 0.03 mg/spray nasal spray Use 1 [place] in each nostril two times a day. cycloSPORINE (RESTASIS) 0.05 % ophthalmic emulsion 1 Drop twice daily. MULTI-VITAMIN ORAL Take by mouth. estradiol (VIVELLE-DOT) 0.05 mg/24 hr patch Apply 1 Patch as directed two times a week. TWICE WEEKLY No current facility-administered medications for this visit. Chronic Problem List: ACTIVE PROBLEM LIST Surgical Menopause On Hormone Replacement Therapy - 09/30/2023 Osteopenia Family History of Breast Cancer - 10/23/2009 Comment: Normal mammo 10/15/2009 [facility] Hyperlipidemia, Mixed - 05/03/2008 Personal History of Malignant Neoplasm of Cervix Uteri - 02/04/2008 Malignant Melanoma of Skin of Lower Limb, Including Hip (Hcc) - 02/04/2008 HEMORRHOIDS EXTERNAL THROMBOSED - 12/30/2004 Review of Systems Review of Systems Constitutional: Negative. Respiratory: Negative. Cardiovascular: Negative. OBJECTIVE BP 110/70 Pulse 75 Ht 5' 5.75 (1.67m) Wt 132 lb 7.9 oz (60.1kg) SpO2 98% LMP 12/13/2004 BMI 21.55 kg/(m2). Physical Exam Vitals and nursing note reviewed. Constitutional: General: She is awake. She is not in acute distress. Appearance: Normal appearance. She is well-developed and well-groomed. She is not ill-appearing, toxic-appearing or diaphoretic. HENT: Head: Normocephalic. Right Ear: External ear normal. Left Ear: External ear normal. Nose: Nose normal. Eyes: General: Vision grossly intact. Conjunctiva/sclera: Conjunctivae normal. Pupils: Pupils are equal, round, and reactive to light. Neck: Vascular: No carotid bruit or JVD. Trachea: Trachea normal. Cardiovascular: Rate and Rhythm: Normal rate and regular rhythm. Pulses: Normal pulses. Heart sounds: Normal heart sounds. No murmur heard. Pulmonary: Effort: Pulmonary effort is normal. No accessory muscle usage, prolonged expiration or respiratory distress. Breath sounds: Normal breath sounds. Musculoskeletal: Cervical back: Neck supple. Right lower leg: No edema. Left lower leg: No edema. Skin: General: Skin is warm and dry. Capillary Refill: Capillary refill takes less than 2 seconds. Neurological: General: No focal deficit present. Mental Status: She is alert and oriented to person, place, and time. Mental status is at baseline. Psychiatric: Attention and Perception: Attention and perception normal. Mood and Affect: Mood and affect normal. Speech: Speech normal. Behavior: Behavior normal. Behavior is cooperative. Thought Content: Thought content n (more content not included)... Normal [facility] 01-07-2024 [facility] Nurse Visit (FAMPWS) MERISSA HERNÁNDEZ ([id number]) 1970 F Date Time Provider Department 01/07/24 9:45 AM [facility] During your visit today, we recorded the following information about you: Aylin Javier LPN 01/07/2024 10:08 AM Signed Patient presents for Flu and COVID vaccines. Denies any problems at this time. Tolerated injections well. Aylin Javier LPN Allergies As of Date: 01/07/2024 Noted Allergy Reaction AZITHROMYCIN 10/05/2006 4 - Hives SULFA (SULFONAMIDE ANTIBIOTICS) 12/14/2004 2 - Rash Date Reviewed: 09/30/2023 Reviewed by: Vicki Diaz MA - Fully Assessed Reason for Visit: Imm/Inj [58] Visit Diagnosis:Encounter for immunization [Z23] Order(s):INFLUENZA VACCINE, AGE 6MO-64YR, TRIVALENT (AFLURIA, FLULAVAL, FLUVIRIN, FLUZONE) [[id number]] Order #: [id number] [employer] COVID-19 VACCINE AGE 12+ YR (COMIRNATY) [[id number]] Order #: [id number] Prescriptions as of 01/07/2024 - estradiol (VIVELLE-DOT) 0.05 mg/24 hr patch Apply 1 Patch as directed two times a week. TWICE WEEKLY - TYRVAYA 0.03 mg/spray nasal spray Use 1 [place] in each nostril two times a day. - Evening [place] Oil 500 mg cap Take 1 capsule by mouth once daily. - cycloSPORINE (RESTASIS) 0.05 % ophthalmic emulsion 1 Drop twice daily. - MULTI-VITAMIN ORAL Take by mouth. Problem List As Of Date 01/07/2024 Noted Resolved HEMORRHOIDS EXTERNAL THROMBOSED [K64.5] 12/30/2004 PERS HX CERVICAL MALIGNANCY [Z85.41] 02/04/2008 MALIG MELANOMA LEG [C43.70] 02/04/2008 Hyperlipidemia, mixed [E78.2] 05/03/2008 Family History of Breast Cancer [Z80.3] 10/23/2009 Osteopenia [M85.80] 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 thera*09/30/2023 Encounter Status:Closed by AYLIN JAVIER on 01/07/24 Normal [facility] CNOVon 09-30-2023 CNOV Office Visit (OBGYWM ) MERISSA HERNÁNDEZ ([id number]) 1970 F Date Time Provider Department 09/30/23 3:00 PM BRIELLE HANNA OBGYWM During your visit today, we recorded the following information about you: Blood pressure Weight 112/64 65.3 kg Brielle Hanna MD 09/30/2023 10:20 PM Signed Merissa Hernández is a 53 year old female who presents for discussion regarding HRT. Was off estrogen for 3-4 months but didn't feel great- read all the benefits, restarted it and feels better. Pt takes PO estrogen and was curious if she should be using the patch to decrease risk of Clots. Pt here for discussion regarding risks/benefits. Pt with h/o TVH/BSO age 36 for cervical dysplasia. 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 Comments: Sexual Activity: Yes; Male Contraception: No contraception data on record PAST MEDICAL HISTORY No date: Abnormal mammogram, unspecified Comment: left breast No date: Family history of breast cancer 02/04/2008: Malignant melanoma of skin of lower limb, including hip (HCC) 05/28/06: Malignant neoplasm of cervix uteri, unspecified site Comment: had a hysterectomy due to the cervical cancer No date: Mitral valve disorders(424.0) Comment: last echo was normal; gets occasional palpitations No date: Osteopenia PAST SURGICAL HISTORY 2007: ARTHROSCOPY KNEE DIAGNOSTIC W/WO SYNOVIAL BX SPX Comment: Arthroscopy, knee,right 2002: DELIVERY ONLY Comment: , low cervical 08/10/2020: COLONOSCOPY FLX DX W/COLLJ SPEC WHEN PFRMD No date: EYE SURGERY HX 1995: HEMORRHOIDECTOMY INT AND XTRNL 2/> COLUMN/GENO 01/2008: PAST SURGICAL HISTORY OF Comment: LLE Melanoma removed 01/08/2009: STEREOTACTIC CORE BIOPSY Comment: left breast 2007: TOTAL ABDOMINAL HYSTERECT W/WO RMVL TUBE OVARY Comment: Hysterectomy, NAIMA No date: VAGINAL HYSTERECTOMY FAMILY HISTORY Problem Relation Age of Onset - Breast Cancer Sister - Heart Father - Lung Cancer Father smoker - Melanoma Sister - Hypertension Brother Social History Tobacco Use - Smoking status: Never - Smokeless tobacco: Never Vaping Use - Vaping Use: Never used Substance Use Topics - Alcohol use: Yes Comment: couple times a year only - Drug use: No Current Outpatient Medications Medication Sig - estradiol (ESTRACE) 1 mg tablet Take 1 tablet by mouth once daily. - TYRVAYA 0.03 mg/spray nasal spray Use 1 [place] in each nostril two times a day. - Evening [place] Oil 500 mg cap Take 1 capsule by mouth once daily. - cycloSPORINE (RESTASIS) 0.05 % ophthalmic emulsion 1 Drop twice daily. - MULTI-VITAMIN ORAL Take by mouth. No current facility-administered medications for this visit. Allergies As of Date: 09/30/2023 Allergen Noted Reaction AZITHROMYCIN 10/05/2006 Hives ENVIRONMENT ALLERGIES [OTHER] 12/14/2004 SULFA (SULFONAMIDE ANTIBIOTICS) 12/14/2004 Rash Fully Assessed 09/30/2023 REVIEW OF SYSTEMS . Expanded ROS: N/A Allergies and current medication updated:Yes EXAM: BP 112/64 Wt 144 lb (65.3kg) LMP 12/13/2004 GENERAL: pleasant, female in no apparent distress HEENT: Normocephalic and atraumatic NECK: Supple and full range of motion DERMATOLOGY: Normal and without lesions NEURO: alert and oriented x3,exam grossly non-focal EXTREMITIES: normal ASSESSMENT AND PLAN: Encounter Diagnosis ICD-10-CM 1. 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 Osteopenia, unspecified location M85.80 3. Discussed options with patient low risk to remain on PO estrogen vs changing to Patch. Discussed options with week vs twice weekly patch. Discussed that patch can cause irritation from adhesive. Reviewed how to apply. After discussion of R/B pt would like trial of patch. Medical Decision Making: Problems: Low: Acute, uncomplicated illness or injury Risk: Moderate: Drug management and Moderate risk from testing/treatment Medical Decision Making Level: 3 - Low Brielle Muñoz MD Allergies As of Date: 09/30/2023 Noted Allergy Reaction AZITHROMYCIN 10/05/2006 4 - Hives SULFA (SULFONAMIDE ANTIBIOTICS) 12/14/2004 2 - Rash Date Reviewed: 09/30/2023 Reviewed by: Vicki Diaz MA - Fully Assessed Reason for Visit: Discussion [813] Primary Visit Diagnosis: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 therapy [E89.40, Z79.890] Other Visit Diagnosis:Osteopenia, unspecified location [M85.80] Order(s):estradiol (VIVELLE-DOT) 0.05 mg/24 hrApply 1 Patch as directed two times a week. TWICE WEEKLYDisp: 24 PatchRfl: 0 Prescriptions as of 09/30/2023 - estradiol (VIVELLE-DOT) 0.05 mg/24 hr Apply 1 Patch as directed two times a week. TWICE WEEKLY - TYRVAYA 0.03 mg/spray nasal spray Use 1 (more content not included)... Normal [facility] Emergency Department Summary on 12-13-2022 Emergency Department Summary [facility] Medical Records Department [address] [place] [address] Emergency Department Summary 12/13/22 MR#: [id number] Acct: [id number] Name: MERISSA HERNÁNDEZ Rep #: [id number] : 1970 52 From: Leobardo Bell DO PCP: Dr. Raymundo Arango MD Status:DEP ER Location: ED HPI History of Present Illness Chief Complaint: Laceration Detail of Chief Complaint: Laceration to right long finger Informant: patient Narrative Narrative: Patient presents the emergency department with complaint of laceration to the right long finger that occurred prior to coming the emergency department. Patient states that she was using a manager food safety and dumping something out of it when she lacerated her finger. She is right-hand dominant. She is unsure of his last tetanus. PFSH PFS Medical History Osteoarthritis Allergy/AdvReac Type Severity Reaction Status Date / Time azithromycin Allergy Mild Hives Verified 12/13/22 17:06 Sulfa (Sulfonamide Allergy Mild Rash Verified 12/13/22 17:06 Antibiotics) Family History Brother Hypertension Sister Breast cancer CVA (cerebral vascular accident) Melanoma Surgical History S/P section S/P hemorrhoidectomy s/p melanoma removal S/P wisdom tooth extraction Status post hysterectomy Social History (Updated 06/12/17 @ 10:[address] Jeffery Alonso MD) Smoking Status: Never smoker alcohol intake: never ROS ROS ED Review of Systems ROS Unobtainable: other Constitutional Constitutional ED: Reports lethargy; Denies chills, fever(s), sweats or weight loss Eyes Eyes: Denies blurry vision, change in vision or diplopia ENT ENT ED: Denies rhinorrhea or sore throat Cardiovascular Cardiovascular: Denies chest pain, orthopnea or racing heartbeat Respiratory/Chest Respiratory/Chest: Denies cough, dyspnea, dyspnea on exertion, orthopnea or sputum Gastrointestinal Gastrointestinal: Denies abdominal pain, diarrhea, nausea or vomiting Genitourinary Genitourinary ED: Denies dysuria, hematuria or urinary frequency Musculoskeletal Musculoskeletal: Denies arthralgias, back pain, myalgias or neck pain Integumentary Reports other Details: Laceration right long finger ; Denies abscess, Abrasions or rash Neurologic Neurologic: Denies headache(s) or weakness Psychiatric Psychiatric: Denies anxiety, depression or suicidal thoughts Endocrine Endocrinology: Denies polydipsia, polyphagia or polyuria Hematologic/Lymphatic Hematologic/Lymphatic: Denies easy bleeding, easy bruising or lymphadenopathy Allergic/Immunologic Allergic/Immunologic ED: Denies mouth swelling, tongue swelling or urticaria EXAM Physical Exam Const Vital Signs: 12/13/22 17:05 Temperature 97.4 F L Temperature Source Temporal Pulse Rate 70 Respiratory Rate 14 Blood Pressure 135/73 H Blood Pressure Mean 93 Pulse Ox 100 Oxygen Delivery Method Room Air Positive well nourished and well developed General Appearance ED: well developed and NAD HEENT Reports TM's clear and moist mucous membranes normocephalic and atraumatic; Negative for trauma or tenderness Tympanic Membrane ED: Yes TM's clear Eyes PERRL and EOMs intact bilaterally General Eye ED: Negative for pale conjunctiva or scleral icterus Neck no lymphadenopathy, supple and no JVD General: Negative for tenderness Chest Wall inspection of chest normal and palpation of chest normal Chest: Negative for tenderness Resp normal respiratory effort and clear to auscultation bilaterally Effort and Inspection: Negative for respiratory distress or pain with movement Auscultation: Negative for rhonchi, wheezes or diminished lung sounds Cardio regular rate, regular rhythm, S1 normal heart sound, S2 normal heart sound and no murmurs Peripheral Pulses: pulses 2+ throughout GI normal to inspection, nondistended, normoactive bowel sounds, soft to palpation, non-tender, non- distended and no masses Back/Spine no CVA tenderness and no thoracic nor lumbar tenderness Extremity Extremity Narrative: Right long finger-patient has a circular avulsion measuring approximately a centimeter in diameter to the distal pulp of the digit. Small amount of venous oozing. General Extremety ED: Negative for edema General Extremity: Negative for edema Neuro oriented x3, CN's II-XII intact bilaterally, no sensory deficits noted and gait normal Sensorium / Orientation: awake, alert, oriented to person, oriented to place and oriented to time Motor Exam: strength 5/5 throughout and strength abnormal Psych mental status grossly normal Skin no rashes or lesions noted and no wounds MDM MDM MDM Narrative (more content not included)... Normal [facility] RAMON SCREENING W TOMOon 04-17 [facility] Influenza virus A and B RNA and SARS-CoV-2 (COVID-19) N gene panel PAYAL+probe (Resp)on 02-10-2022 FLUAV RNA PAYAL+probe Ql (Unsp spec) Positive Abnormal Negative for Influenza A by RT-PCR [facility] FLUBV RNA PAYAL+probe Ql (Unsp spec) Negative Negative for Influenza B by RT-PCR [facility] SARS-CoV-2 (COVID-19) RNA PAYAL+probe Ql (Resp) SARS-CoV-2 (Agent of COVID-19) Not Detected by RT-PCR or equivalent method. Not Detected [facility] Office Visit: left breast bi opsyon 10-10-[address] [facility] [employer] Work Phone: Tobacco smoking status NHIS Never [facility] [employer] Work Phone: Tobacco smoking status NHIS Never smoker [facility] [employer] Work Phone: Office Visit: abnormal breas t USon 10-07-2016 Fall risk assessment No [employer] Work Phone: Protein mass conc Done [facility] [employer] Work Phone: Tobacco smoking status NHIS Never [facility] [employer] Work Phone: Tobacco smoking status NHIS Never smoker [facility] [employer] Work Phone: Vital Signs Date Time Vital Sign Value Performing Clinician Facility 06-20-2024 10:19-0400 Body height 167.6 cm Marcneela Lopez FOOD T[employer]ER.SHOE TREER Work Phone: [facility] 06-20-2024 10:19-0400 Body mass index (BMI) [Ratio] 21.79 kg/m2 Marcellia Lopez FOOD TASTER.SHOE TREER Work Phone: [facility] 06-20-2024 10:19-0400 Body weight 61.24 kg Marcellia Lopez FOOD TASTER.SHOE TREER Work Phone: [facility] 05-02-2024 13:57-0400 Body height 167.6 cm Brielle Hniojosa MD Work Phone: [facility] 05-02-2024 13:57-0400 Body mass index (BMI) [Ratio] 21.79 kg/m2 Brielle Hinojosa MD Work Phone: [facility] 05-02-2024 13:57-0400 Body weight 61.24 kg Brielle Hinojosa MD Work Phone: [facility] 05-02-2024 13:57-0400 Diastolic blood pressure 60 mm[Hg] Brielle Hinojosa MD Work Phone: [facility] 05-02-2024 13:57-0400 Systolic blood pressure 106 mm[Hg] Brielle Hinojosa MD Work Phone: [facility] 04-22-2024 11:09-0500 Body height 167 cm Laila Grimes FOOD TASTER.SHOE TREER Work Phone: [facility] 04-22-2024 11:09-0500 Body mass index (BMI) [Ratio] 21.55 kg/m2 Laila Dueñasr FOOD TASTER.SHOE TREER Work Phone: [facility] 04-22-2024 11:09-0500 Body weight 60.1 kg Laila Rahel FOOD TASTER.SHOE TREER Work Phone: [facility] 04-22-2024 11:09-0500 Diastolic blood pressure 70 mm[Hg] Laila Rahel FOOD TASTER.SHOE TREER Work Phone: [facility] 04-22-2024 11:09-0500 Heart rate 75 /min Laila Rahel FOOD TASTER.SHOE TRE[employer] Work Phone: [facility] 04-22-2024 11:09-0500 SaO2% (BldA) [Mass fraction] 98 % Laila Rahel FOOD TASTER.SHOE TREER Work Phone: [facility] 04-22-2024 11:09-0500 Systolic blood pressure 110 mm[Hg] Laila Rahel FOOD TASTER.SHOE TREER Work Phone: [facility] 09-30-2023 14:57-0400 Body mass index (BMI) [Ratio] 23.24 kg/m2 Brielle Hinojosa MD Work Phone: [facility] 09-30-2023 14:57-0400 Body weight 65.32 kg Brielle Hinojosa MD Work Phone: [facility] 09-30-2023 14:57-0400 Diastolic blood pressure 64 mm[Hg] Brielle Hinojosa MD Work Phone: [facility] 09-30-2023 14:57-0400 Systolic blood pressure 112 mm[Hg] Brielle Hinojosa MD Work Phone: [facility] 04-20-2023 08:53-0500 Body height 167.6 cm Brielle Hinojosa MD Work Phone: [facility] 04-20-2023 08:53-0500 Body weight 65.32 kg Brielle Hinojosa MD Work Phone: [facility] 04-20-2023 08:53-0500 Diastolic blood pressure 66 mm[Hg] Brielle Hinojosa MD Work Phone: [facility] 04-20-2023 08:53-0500 Systolic blood pressure 118 mm[Hg] Brielle Hinojosa MD Work Phone: [facility] 12-13-2022 17:05-0400 Body height 167.64 cm [facility] 12-13-2022 17:05-0400 Body mass index (BMI) [Ratio] 23.1 kg/m2 [facility] 12-13-2022 17:05-0400 Body temperature 97.4 [degF] [facility] 12-13-2022 17:05-0400 Body weight 64.86 kg [facility] 12-13-2022 17:05-0400 Diastolic blood pressure 73 mm[Hg] [facility] 12-13-2022 17:05-0400 Heart rate 70 /min [facility] 12-13-2022 17:05-0400 Respiratory rate 14 /min [facility] 12-13-2022 17:05-0400 SaO2% (BldA) [Mass fraction] 100 % [facility] 12-13-2022 17:05-0400 Systolic blood pressure 135 mm[Hg] [facility] 04-17-2022 10:59-0500 Body height 167.6 cm Brielle Hinojosa MD Work Phone: [facility] 04-17-2022 10:59-0500 Body weight 63.5 kg Brielle Hinojosa MD Work Phone: [facility] 04-17-2022 10:59-0500 Diastolic blood pressure 66 mm[Hg] Brielle Hinojosa MD Work Phone: [facility] 04-17-2022 10:59-0500 Systolic blood pressure 104 mm[Hg] Brielle Hinojosa MD Work Phone: [facility] 02-10-2022 08:17-0500 Body temperature 97.3 [degF] Jerri Coleman FOOD TASTER.SHOE TREER Work Phone: [facility] 02-10-2022 08:17-0500 Body weight 63.59 kg Jerri Coleman FOOD TASTER.SHOE TREER Work Phone: [facility] 02-10-2022 08:17-0500 Diastolic blood pressure 78 mm[Hg] Jerri Coleman FOOD TASTER.SHOE TREER Work Phone: [facility] 02-10-2022 08:17-0500 Heart rate 84 /min Jerri Coleman FOOD TASTER.SHOE TREER Work Phone: [facility] 02-10-2022 08:17-0500 Respiratory rate 20 /min Jerri Coleman FOOD TASTER.SHOE TREER Work Phone: [facility] 02-10-2022 08:17-0500 SaO2% (BldA) [Mass fraction] 98 % Jerri Coleman FOOD TASTER.SHOE TREER Work Phone: [facility] 02-10-2022 08:17-0500 Systolic blood pressure 120 mm[Hg] Jerri Coleman FOOD TASTER.SHOE TREER Work Phone: [facility] 01-24-2022 09:03-0500 Body weight 63.05 kg Raymundo Arango MD Work Phone: [facility] 01-24-2022 09:03-0500 Diastolic blood pressure 76 mm[Hg] Raymundo Arango MD Work Phone: [facility] 01-24-2022 09:03-0500 Heart rate 74 /min Raymundo Arango MD Work Phone: [facility] 01-24-2022 09:03-0500 SaO2% (BldA) [Mass fraction] 100 % Raymundo Arango MD Work Phone: [facility] 01-24-2022 09:03-0500 Systolic blood pressure 118 mm[Hg] Raymundo Arango MD Work Phone: [facility] 10-07-2016 10:16-0400 BMI (Body Mass Index) 20.98 kg/m2 Jeffery Alonso MD [facility] Work Phone: 10-07-2016 10:16-0400 BP Diastolic 86 mm[Hg] Jeffery Alonso MD [facility] Work Phone: 10-07-2016 10:16-0400 BP Systolic 125 mm[Hg] Jeffery Alonso MD [facility] Work Phone: 10-07-2016 10:16-0400 Height 167.64 cm Jeffery Alonso MD [facility] Work Phone: 10-07-2016 10:16-0400 Respiratory Rate 18 /min Jeffery Alonso MD [facility] Work Phone: 10-07-2016 10:160400 Weight 58.97 kg Jeffery Alonso MD [facility] Work Phone: Encounters Encounter Date Encounter Type Care Provider Facility Start: 08-24-2024 End: 08-24-2024 Telephone encounter Bridget Lopez APRN.CNP Work Phone: [facility] Comment on above: Received Outside [facility] Records Start: 06-20-2024 End: 06-20-2024 Patient encounter procedure Bridget Lopez APRN.SHOE TREER Work Phone: [facility] Comment on above: Fibrocystic breast c hanges of both breasts (Primary Dx); Family history of breast cancer; Family history of ovarian cancer; Heterogeneously dense tissue of both breasts on mammography; Increased risk of breast cancer Start: 06-20-2024 End: 06-20-2024 ambulatory RAYMUNDO ARANGO Facility:[facility] Start: 06-02-2024 End: 06-28-2024 Telephone encounter Mariaa Ordonez MD Work Phone: [facility] Comment on above: Appointment Start: 05-16-2024 End: 07-16-2024 Follow-up encounter Brielle Hinojosa MD Work Phone: OB/Gynecology Start: 05-12-2024 End: 05-12-2024 ambulatory [facility] Facility:[facility] Start: 05-12-2024 End: 05-12-2024 Subsequent hospital visit by physician Screen Mammo [facility] Comment on above: Encounter for screen ing mammogram for breast cancer [Z12.31] Start: 05-02-2024 End: 05-02-2024 ambulatory BRIELLE HINOJOSA Facility:[facility] Start: 05-02-2024 End: 05-02-2024 Patient encounter procedure Brielle Hinojosa MD Work Phone: OB/Gynecology Comment on above: Encounter for gyneco logical examination (general) (routine) without abnormal findings (Primary Dx); Encounter for screening mammogram for breast cancer; Hormone replacement therapy (HRT) Start: 05-02-2024 End: 05-02-2024 Patient encounter status Brielle Hinojosa MD Work Phone: [facility] Start: 04-22-2024 End: 04-22-2024 [facility] Facility:[facility] Start: 04-22-2024 End: 04-22-2024 Patient encounter procedure Laila Grimes APRN.CNP Work Phone: [facility] Comment on above: Routine medical exam (Primary Dx); Screening for depression; Encounter for screening examination for other mental health and behavioral disorders; Osteopenia, unspecified location; Encounter for therapeutic drug monitoring; Screening for lipid disorders; Encounter for screening for diabetes mellitus Start: 04-22-2024 End: 04-22-2024 Patient encounter status Laila Grimes APRN.SHOE TREER Work Phone: [facility] Work Phone: Start: 01-07-2024 End: 01-07-2024 [facility] Facility:[facility] Start: 01-07-2024 End: 01-07-2024 Nursing evaluation of patient and report Mi Nurse Work Phone: [facility] Comment on above: Encounter for immuni zation Start: 12-21-2023 End: 12-21-2023 Refill Brielle Hinojosa MD Work Phone: OB/Gynecology Comment on above: Refill Request Start: 09-30-2023 End: 09-30-2023 Patient encounter procedure Brielle Hinojosa MD Work Phone: OB/Gynecology Comment on above: Surgical menopause o n hormone replacement therapy (Primary Dx); Osteopenia, unspecified location Start: 09-30-2023 End: 09-30-2023 ambulatory BRIELLE HINOJOSA Facility:[facility] Start: 09-16-2023 Refill Brielle Hinojosa MD Work Phone: OB/Gynecology Comment on above: Refill Request Start: 08-10-2023 ambulatory Brielle Hinojosa MD Work Phone: OB/Gynecology Comment on above: Estradiol Prescripti on Start: 06-18-2023 End: 06-18-2023 Subsequent hospital visit by physician Bone Density [facility] Work Phone: Radiology Comment on above: Osteopenia, unspecif ied location [M85.80] Start: 06-11-2023 Orders Only Brielle Hinojosa MD Work Phone: OB/Gynecology Comment on above: Osteopenia, unspecif ied location (Primary Dx) Start: 05-22-2023 End: 05-22-2023 Nursing evaluation of patient and report Mi Nurse Work Phone: [facility] Comment on above: Need for vaccination (Primary Dx) Start: 05-08-2023 Documentation procedure Mammog zaida Coordinator [facility] Start: 05-08-2023 Letter encounter Mammography Coordinator [facility] Department Start: 05-07-2023 End: 05-07-2023 Subsequent hospital visit by physician Screen Mammo [facility] Comment on above: Encounter for screen ing mammogram for breast cancer [Z12.31] Start: 04-20-2023 End: 04-20-2023 Patient encounter procedure Brielle Hinojosa MD Work Phone: OB/Gynecology Comment on above: Encounter for gyneco logical examination (general) (routine) without abnormal findings (Primary Dx); Encounter for screening mammogram for breast cancer; Screening for vaginal cancer; Special screening examination for human papillomavirus (HPV); Encounter for screening for osteoporosis; Encounter for monitoring estrogen replacement therapy following surgical menopause Start: 04-20-2023 End: 04-20-2023 Patient encounter status Brielle Hinojosa MD Work Phone: [facility] Start: 12-13-2022 End: 12-13-2022 Emergency department patient visit Raymundo Arango Facility:[facility] Start: 12-13-2022 End: 12-13-2022 Emergency department patient visit [facility] Work Phone: Start: 11-28-2022 End: 11-28-2022 ambulatory Immunization Clinic Nurse [place] Work Phone: [facility] Medicine [place] Start: 04-18-2022 Documentation procedure Mammog zaida Coordinator [facility] Start: 04-18-2022 Letter encounter Mammography Coordinator [facility] Department Start: 04-17-2022 End: 04-17-2022 Subsequent hospital visit by physician Screen Mammo [facility] Comment on above: Encounter for screen ing mammogram for malignant neoplasm of breast [Z12.31] Start: 04-17-2022 End: 04-17-2022 Patient encounter procedure Brielle Hinojosa MD Work Phone: OB/Gynecology Comment on above: Encounter for gyneco logical examination (general) (routine) without abnormal findings (Primary Dx); Encounter for screening mammogram for malignant neoplasm of breast; Enlarged thyroid Start: 04-17-2022 End: 04-17-2022 Patient encounter status Brielle Hinojosa MD Work Phone: OB/Gynecology Start: 02-10-2022 End: 02-10-2022 Patient encounter procedure Jerri Coleman APRN.CNP Work Phone: [facility] Comment on above: URI, acute (Primary Dx) Start: 01-24-2022 End: 12-09-2022 Patient encounter status Raymundo Arango MD Work Phone: [facility] Start: 01-24-2022 End: 01-24-2022 Periodic preventive med est patient 40-64yrs Raymundo Arango MD Work Phone: [facility] Comment on above: Routine medical exam (Primary Dx); Hx of motion sickness Start: 12-12-2021 End: 12-12-2021 Nursing evaluation of patient and report Mi Nurse Work Phone: [facility] [place] Comment on above: Need for vaccination (Primary Dx); Need for influenza vaccination Start: 08-27-2021 Telephone encounter Raymundo thompson MD Work Phone: [facility] Comment on above: Covid Exposure (& sy mptoms) Procedures Date Procedure Procedure Detail Performing Clinician Start: 05-12-2024 Lipid 1996 panel - S davide or Plasma Bridget Lopez FOOD TASTER.SHOE TREER Work Phone: Start: 04-22-2024 Adult depression screening assessment Laila Grimes FOOD TASTER.SHOE TREER Work Phone: Start: 01-07-2024 PFIZER-BIONTECH COVI D-19 VACCINE AGE 12+ YR (COMIRNATY) Yue Scanlon FOOD TASTER.MECHANICAL SUPERVISOR Work Phone: Start: 03-26-2023 Lipid 1996 panel - S davide or Plasma Brielle Hinojosa MD Work Phone: Start: 11-28-2022 PFIZER-BIONTECH COVI D-19 VACCINE (2022- SEASON) AGE 12+ YR Raymundo Arango MD Work Phone: Start: 11-28-2022 INFLUENZA VACCINE, A GE 6 MO - 64 YR, QUADRIVALENT (AFLURIA, FLULAVAL, FLUZONE) Raymundo Arango MD Work Phone: Start: 04-17-2022 RAMON SCREENING W KULDIP Blake MD Work Phone: Start: 04-17-2022 Mammography Mammograph y Coordinator Start: 02-10-2022 COVID WITH FLUA+B, ROUTINE Jerri Coleman FOOD TASTER.SHOE TREER Work Phone: Start: 12-12-2021 INFLUENZA VACCINE QUADRIVALENT 6 MO - 64 YRS IM Tashia Felipe MD Work Phone: Start: 12-12-2021 PFIZER-BIONTECH COVI D-19 BIVALENT BOOSTER VACCINE, AGE 12+ YR Tashia Felipe MD Work Phone: Start: 03-28-2021 Mammography Raymundo garcía MD Work Phone: Start: 01-14-2021 Adult depression screening assessment Raymundo Arango MD Work Phone: Start: 10-15-2020 Lipid 1996 panel - S davide or Plasma Immunization [facility] Work Phone: Start: 08-10-2020 Colonoscopy Raymundo garcía MD Work Phone: Plan of Treatment Date Care Activity Detail Author Start: 12-13-2032 Urine microalbumin profile DTaP,Tdap,Td Vaccine (8 - Td or Tdap) [facility] Start: 05-12-2029 Lipid panel Lipid Screening [facility] Start: 12-27-2028 Urine microalbumin profile [facility] Start: 04-19-2028 Screening for malign ant neoplasm of cervix [facility] Start: 03-26-2028 Lipid panel Lipid Screening [facility] Start: 05-13-2027 Diabetes Screening Diabetes Screenin g [facility] Start: 03-26-2026 Diabetes Screening Diabetes Screenin g [facility] Start: 10-15-2025 Lipid 1996 panel - S davide or Plasma Lipid Screening [facility] Start: 10-15-2025 LIPID SCREEN LIPID SCREEN [facility] Start: 08-10-2025 Colonoscopy COLONOSCOPY [facility] Start: 08-10-2025 COLORECTAL CANCER SCREENING COLORECTAL CANCER SCREENING [facility] Start: 08-10-2025 Screening for malign ant neoplasm of colon [facility] Start: 05-12-2025 Screening for malign ant neoplasm of breast Mammogram Screening [facility] Start: 05-05-2025 End: 05-05-2025 Patient encounter procedure 05/05/2025 10:00 AM EDT Office Visit [facility] [address] [place] [address] Laila Grimes APRN.SHOE TREER [address] [place], [place] [id number] yearly physical [facility] Comment on above: yearly physical Start: 05-04-2025 End: 05-04-2025 Patient encounter procedure 05/04/2025 11:20 AM EDT Office Visit OB/Gynecology [address] [place], [place] [id number] Brielle Hanna MD [address] [place], [place] [id number] Annual OB/Gynecology Comment on above: Annual Start: 04-22-2025 Anxiety Screening Anxiety Screening [facility] Start: 04-22-2025 Depression Screening Depression Scre ening [facility] Start: 03-19-2025 PAP TESTING PAP TESTING [facility] Start: 03-19-2025 Screening for malign ant neoplasm of cervix Pap Testing [facility] Start: 11-14-2024 End: 11-14-2024 Patient encounter procedure 11/14/2024 10:40 AM EDT Appointment Radiology [address], [place] [id number] MRI BREAST WO/W IVCON BILATERAL; Fibrocystic breast changes of both breasts [N60.11, N60.12] Family history of breast cancer [Z80.3] Family history of ovarian cancer [Z80.41] Heterogeneously dense tissue of both breasts on mammography [R92.333] Increased risk of breast cancer [Z91.89].PT HAS A GEL FOAM TITANIUM BREAST CLIP SINCE 2008. Pt wanted you aware. pt is contacting ordering DR also. Radiology Comment on above: MRI BREAST WO/W IVCO N BILATERAL; Fibrocystic breast changes of both breasts [N60.11, N60.12] Family history of breast cancer [Z80.3] Family history of ovarian cancer [Z80.41] Heterogeneously dense tissue of both breasts on mammography [R92.333] Increased risk of breast cancer [Z91.89].PT HAS A GEL FOAM TITANIUM BREAST CLIP SINCE 2008. Pt wanted you aware. pt is contacting ordering DR also. Start: 10-17-2024 Influenza vaccination Influenza Vacc ine (#1) [facility] Start: 05-12-2024 End: 05-12-2024 Patient encounter procedure 05/12/2024 9:50 AM EDT Appointment Mammogram [address] [place] [address] Encounter for screening mammogram for breast cancer [Z12.31] Mammogram Comment on above: Encounter for screen ing mammogram for breast cancer [Z12.31] Start: 05-06-2024 Screening for malign ant neoplasm of breast Mammogram Screening [facility] Start: 05-02-2024 End: 05-02-2024 Patient encounter procedure 05/02/2024 2:00 PM EDT Office Visit OB/Gynecology [address] [place] [address] Brielle Hanna MD [address] [place] [address] Annual OB/Gynecology Comment on above: Annual Start: 04-25-2024 End: 04-25-2024 Patient encounter procedure OB/Gynecology Comment on above: Annual Start: 04-22-2024 End: 07-22-2024 Comprehensive metabolic 2000 panel - Serum or Plasma COMPREHENSIVE METABOLIC PANEL Lab Routine Encounter for therapeutic drug monitoring Encounter for screening for diabetes mellitus Expected: 04/22/2024, Expires: 07/22/2024 [facility] Work Phone: Comment on above: Expected: 04/22/2024 , Expires: 07/22/2024 Start: 04-22-2024 End: 07-22-2024 Lipid 1996 panel - Serum or Plasma LIPID PANEL BASIC Lab Routine Screening for lipid disorders Expected: 04/22/2024, Expires: 07/22/2024 [facility] Comment on above: Expected: 04/22/2024 , Expires: 07/22/2024 Start: 04-18-2024 End: 04-18-2024 Patient encounter procedure 04/18/2024 10:40 AM EST Office Visit Internal [facility] [address] [place] [address] Laila Grimes APRN.SHOE TREER [address] [place], [place] [phone] physical annual [facility] [place] Comment on above: physical annual Start: 02-14-2024 Hepatitis B Vaccine (1 of 3 - 19+ 3-dose series) Hepatitis B Vaccine (1 of 3 - 19+ 3-dose series) [facility] Comment on above: Postponed from 05/26 (Declined at this time) Start: 02-14-2024 Hepatitis B Vaccine (1 of 3 - 3-dose series) Hepatitis B Vaccine (1 of 3 - 3-dose series) [facility] Comment on above: Postponed from 05/26 (Declined at this time) Start: 01-07-2024 End: 01-07-2024 Nursing evaluation of patient and report 01/07/2024 9:45 AM EST Nurse Visit Family [facility] [address] [place], [place] [phone] Nurse, De [address] [place], [place] [phone] Flu + Covid Booster [facility] Comment on above: Flu + Covid Booster Start: 10-18-2023 Covid-19 Vaccine ( season) Covid-19 Vaccine ( season) [facility] Start: 10-18-2023 Influenza vaccination Influenza Vacc ine (#1) [facility] Start: 10-16-2023 DIABETES SCREEN DIABETES SCREEN [facility] Start: 10-16-2023 Diabetes Screening Diabetes Screenin g [facility] Start: 09-30-2023 End: 09-30-2023 Patient encounter procedure 09/30/2023 3:00 PM EDT Office Visit OB/Gynecology [address] [place], [place] [phone] Brielle Hanna MD [address] [place], [place] [address] Discuss medication-see [employer]CH[employer] message OB/Gynecology Comment on above: Discuss medication-s ee [employer] message Start: 06-18-2023 End: 06-18-2023 Patient encounter procedure 06/18/2023 8:55 AM EDT Appointment Radiology [address] [place] [address] Encounter for screening for osteoporosis [Z13.820] Radiology Comment on above: Encounter for screen ing for osteoporosis [Z13.820] Start: 05-08-2023 Shingrix Vaccine (2 of 2) Gao grix Vaccine (2 of 2) [facility] Start: 04-18-2023 Mammography [facility] Start: 04-18-2023 Screening for malign ant neoplasm of breast Mammogram Screening [facility] Start: 02-16-2023 Behavioral Health Screening Behavioral Health Screening [facility] Start: 02-16-2023 Depression Assessment Depression Ass essment [facility] Start: 01-24-2023 HEPATITIS B (1 of 3 - 3-dose series) HEPATITIS B (1 of 3 - 3-dose series) [facility] Comment on above: Postponed from 05/26 (Declined at this time) Start: 01-24-2023 Hepatitis B Vaccine (1 of 3 - 3-dose series) Hepatitis B Vaccine (1 of 3 - 3-dose series) [facility] Comment on above: Postponed from 05/26 (Declined at this time) Start: 01-24-2023 SHINGRIX VACCINE (1 of 2) GAO GRIX VACCINE (1 of 2) [facility] Comment on above: Postponed from 05/26 (Declined at this time) Start: 04-17-2022 End: 06-17-2022 Thyrotropin [Units/volume] in Serum or Plasma [facility] Work Phone: Comment on above: Expected: 04/17/2022 , Expires: 06/17/2022 Start: 03-28-2022 Mammography MAMMOGRAM [facility] Start: 02-16-2022 DEPRESSION ASSESSMENT DEPRESSION ASS ESSMENT [facility] Start: 01-18-2022 SHINGRIX VACCINE (1 of 2) GAO GRIX VACCINE (1 of 2) [facility] Comment on above: Postponed from 05/26 (Declined at this time) Start: 01-14-2022 Adult depression screening assessment DEPRESSION SCREENING [facility] Start: 10-17-2021 Influenza vaccination INFLUENZA (#1) [facility] Start: 05-09-2021 COVID-19 VACCINE (4 - Booster for Pfizer series) COVID-19 VACCINE (4 - Booster for Pfizer series) [facility] Start: 02-16-2021 DEPRESSION ASSESSMENT DEPRESSION ASS ESSMENT [facility] Start: 2020 Pneumococcal Vaccine : 50+ (1 of 1 - PCV) Pneumococcal Vaccine: 50+ (1 of 1 - PCV) [facility] Start: 10-14-2016 End: 10-14-[address] [facility] Work Phone: Start: 10-10-2016 End: 10-10-[address] [facility] Work Phone: Start: 10-10-2016 End: 10-10-2016 Bx breast w/device 1st lesion ultrasound guid Biopsy, breast, with ultrasound guidance [facility] Work Phone: Start: 10-10-2016 End: 10-10-2016 Follow up after testing Follow up after testing [facility] Work Phone: Start: 05-27-2015 COLOGUARD (FIT-DNA) COLOGUARD (FIT-D NA) [facility] Start: 05-27-[address] COLONOGRAPHY [facility] Start: 05-27-2015 FECAL OCCULT BLOOD FECAL OCCULT BLOO D [facility] Start: 05-27-2015 Screening for malign ant neoplasm of colon [facility] Start: 05-27-2015 SIGMOIDOSCOPY SIGMOIDOSCOPY [facility] Start: 1989 Hepatitis B Vaccine (1 of 3 - 19+ 3-dose series) Hepatitis B Vaccine (1 of 3 - 19+ 3-dose series) [facility] Start: 1988 Anxiety Screening Anxiety Screening [facility] Start: 1988 Depression Screening Depression Scre ening [facility] Start: 1970 HEPATITIS B (1 of 3 - 3-dose series) HEPATITIS B (1 of 3 - 3-dose series) [facility] End: 05-19-2024 BD DXA TRABECULAR BONE SCORE (TBS) BD DXA TRABECULAR BONE SCORE (TBS) Radiology Routine Encounter for screening for osteoporosis Encounter for monitoring estrogen replacement therapy following surgical menopause 1 Occurrences starting 04/20/2023 until 05/19/2024 [facility] Work Phone: Comment on above: 1 Occurrences starti ng 04/20/2023 until 05/19/2024 End: 07-10-2024 BD DXA TRABECULAR BONE SCORE (TBS) BD DXA TRABECULAR BONE SCORE (TBS) Radiology Routine Osteopenia, unspecified location 1 Occurrences starting 06/11/2023 until 07/10/2024 [facility] Comment on above: 1 Occurrences starti ng 06/11/2023 until 07/10/2024 BD DXA TRABECULAR ANISH NE SCORE (TBS) BD DXA TRABECULAR BONE SCORE (TBS) Radiology Routine Osteopenia, unspecified location 06/18/2023 9:18 AM EDT [facility] End: 05-19-2024 DBT Breast - bilateral screening [facility] [place] Radiology Routine Encounter for screening mammogram for breast cancer 1 Occurrences starting 04/20/2023 until 05/19/2024 [facility] Work Phone: Comment on above: 1 Occurrences starti ng 04/20/2023 until 05/19/2024 DBT Breast - bilater al screening [facility] [place] Radiology Routine Encounter for screening mammogram for breast cancer 05/07/2023 10:15 AM EDT [facility] Work Phone: End: 06-01-2025 DBT Breast - bilateral screening [facility] [place] Radiology Routine Encounter for screening mammogram for breast cancer 1 Occurrences starting 05/02/2024 until 06/01/2025 [facility] Work Phone: Comment on above: 1 Occurrences starti ng 05/02/2024 until 06/01/2025 DBT Breast - bilater al screening [facility] SCREENING [place] Radiology Routine Encounter for screening mammogram for breast cancer 05/12/2024 10:01 AM EDT [facility] Work Phone: End: 07-10-2024 DXA Skeletal system.axial Views for bone density DXA-AXIAL SKELETON Radiology Routine Osteopenia, unspecified location 1 Occurrences starting 06/11/2023 until 07/10/2024 [facility] Work Phone: Comment on above: 1 Occurrences starti ng 06/11/2023 until 07/10/2024 DXA Skeletal system. axial Views for bone density DXA-AXIAL SKELETON Radiology Routine Osteopenia, unspecified location 06/18/2023 9:18 AM EDT [facility] Work Phone: End: 05-19-2024 DXA Skeletal system.axial Views for bone density and vertebral fracture DXA-AXIAL SKELETON WITH VFA Radiology Routine Encounter for screening for osteoporosis Encounter for monitoring estrogen replacement therapy following surgical menopause 1 Occurrences starting 04/20/2023 until 05/19/2024 [facility] Work Phone: Comment on above: 1 Occurrences starti ng 04/20/2023 until 05/19/2024 End: 05-17-2023 [facility]ON SCREENING [place] [facility] SCREENING [facility] [place] Radiology Routine Encounter for screening mammogram for malignant neoplasm of breast 1 Occurrences starting 04/17/2022 until 05/17/2023 [facility] Work Phone: Comment on above: 1 Occurrences starti ng 04/17/2022 until 05/17/2023 [facility]ON SCREENING [place] RAMON SCREENI NG [place] Radiology Routine Encounter for screening mammogram for malignant neoplasm of breast 04/17/2022 1:21 PM EST [facility] Work Phone: End: 07-20-2025 MR Breast - bilateral WO and W contrast IV MRI BREAST WO/W IVCON BILATERAL Radiology Routine Fibrocystic breast changes of both breasts Family history of breast cancer Family history of ovarian cancer Heterogeneously dense tissue of both breasts on mammography Increased risk of breast cancer 1 Occurrences starting 06/20/2024 until 07/20/2025 [facility] Work Phone: Comment on above: 1 Occurrences starti ng 06/20/2024 until 07/20/2025 PAP TEST PAP TEST Lab [place] Screening for vaginal cancer Special screening examination for human papillomavirus (HPV) 04/20/2023 9:22 AM EST [facility] Work Phone: Patient Education ED Laceration, Hand: All Closures [facility] Work Phone: Patient referral [facility] Work Phone: [facility] Immunizations Immunization Date Immunization Notes Care Provider Ken machado 01-07-2024 COVID-19 vaccine, ag e 12+ yr (PFIZER-BIONTECH COMIRNATY) Mi Nurse Work Phone: [facility] 01-07-2024 influenza, seasonal, injectable Mi Nurse Work Phone: [facility] 01-07-2024 influenza virus vaccine, unspecified formulation Bridget Lopez APRN.SHOE TREER Work Phone: [facility] 05-22-2023 zoster vaccine recombinant Mi Nurse Work Phone: [facility] 03-13-2023 zoster vaccine recombinant Brielle Hinojosa MD Work Phone: [facility] 12-13-2022 tetanus toxoid, reduced diphtheria toxoid, and acellular pertussis vaccine, adsorbed [facility] 11-28-2022 COVID-19 vaccine, ag e 12+ yr, season (PFIZER-BIONTECH) Immunization [facility] Work Phone: [facility] Work Phone: 11-28-2022 influenza, injectabl e, quadrivalent, contains preservative Immunization [place] Work Phone: [facility] Work Phone: 11-28-2022 influenza virus vaccine, unspecified formulation Brielle Hinojosa MD Work Phone: [facility] 12-12-2021 COVID-19 booster vaccine, age 12+ yr, bivalent (PFIZER-BIONTECH) De Nurse Work Phone: [facility] Work Phone: 12-12-2021 influenza, injectabl e, quadrivalent, contains preservative Mi Nurse Work Phone: [facility] Work Phone: 11-12-2020 influenza, injectabl e, quadrivalent, contains preservative Raymundo Arango MD Work Phone: [facility] Work Phone: 10-27-2019 influenza, injectabl e, quadrivalent, contains preservative Raymundo Arango MD Work Phone: [facility] 12-27-2018 tetanus and diphther ia toxoids, adsorbed, preservative free, for adult use (5 Lf of tetanus toxoid and 2 Lf of diphtheria toxoid) Raymundo Arango MD Work Phone: [facility] 12-11-2018 influenza, injectabl e, quadrivalent, contains preservative Raymundo Arango MD Work Phone: [facility] 11-14-2017 influenza, injectabl e, quadrivalent, contains preservative Raymundo Arango MD Work Phone: [facility] Work Phone: 11-22-2016 influenza, injectabl e, quadrivalent, contains preservative Raymundo Arango MD Work Phone: [facility] Work Phone: 12-08-2015 influenza, injectabl e, quadrivalent, contains preservative Raymundo Arango MD Work Phone: [facility] 11-18-2014 influenza, injectabl e, quadrivalent, contains preservative Raymundo Arango MD Work Phone: [facility] Work Phone: 12-14-2013 influenza, seasonal, injectable Raymundo Arango MD Work Phone: [facility] 11-20-2012 influenza virus vaccine, live, attenuated, for intranasal use Raymundo Arango MD Work Phone: [facility] Work Phone: 11-15-2011 influenza virus vaccine, live, attenuated, for intranasal use Raymundo Arango MD Work Phone: [facility] 11-16-2010 influenza virus vaccine, live, attenuated, for intranasal use Raymundo Arango MD Work Phone: [facility] 12-01-2009 influenza virus vaccine, live, attenuated, for intranasal use Raymundo Arango MD Work Phone: [facility] Work Phone: 01-29-2009 novel [id number], all formulations Raymundo Arango MD Work Phone: [facility] Work Phone: 11-29-2008 influenza virus vaccine, unspecified formulation Raymundo Arango MD Work Phone: [facility] Work Phone: 05-03-2008 tetanus toxoid, reduced diphtheria toxoid, and acellular pertussis vaccine, adsorbed Raymundo Arango MD Work Phone: [facility] 12-30-2007 influenza virus vaccine, unspecified formulation Raymundo Arango MD Work Phone: [facility] 01-05-2007 influenza virus vaccine, unspecified formulation Raymundo Arango MD Work Phone: [facility] Work Phone: 12-29-2005 influenza virus vaccine, unspecified formulation Raymundo Arango MD Work Phone: [facility] Work Phone: 12-24-2004 influenza virus vaccine, unspecified formulation Raymundo Arango MD Work Phone: [facility] Work Phone: 07-18-1986 tetanus and diphther ia toxoids, adsorbed, preservative free, for adult use (2 Lf of tetanus toxoid and 2 Lf of diphtheria toxoid) Raymundo Arango MD Work Phone: [facility] Work Phone: 07-18-1986 trivalent poliovirus vaccine, live, oral Raymundo Arango MD Work Phone: [facility] Work Phone: 07-18-1986 tuberculin skin test ; purified protein derivative solution, intradermal Brielle Hinojosa MD Work Phone: [facility] 05-02-1986 measles, mumps and rubella virus vaccine Raymundo Arango MD Work Phone: [facility] Work Phone: 09-25-1975 diphtheria, tetanus toxoids and pertussis vaccine Raymundo Arango MD Work Phone: [facility] Work Phone: 09-25-1975 trivalent poliovirus vaccine, live, oral Raymundo Arango MD Work Phone: [facility] Work Phone: 11-11-1972 diphtheria, tetanus toxoids and pertussis vaccine Raymundo Arango MD Work Phone: [facility] Work Phone: 11-11-1972 trivalent poliovirus vaccine, live, oral Raymundo Arango MD Work Phone: [facility] Work Phone: 07-30-1971 measles, mumps and rubella virus vaccine Raymundo Arango MD Work Phone: [facility] Work Phone: 01-03-1971 trivalent poliovirus vaccine, live, oral Raymundo Arango MD Work Phone: [facility] Work Phone: 1970 diphtheria, tetanus toxoids and pertussis vaccine Raymundo Arango MD Work Phone: [facility] Work Phone: 1970 measles, mumps and rubella virus vaccine Raymundo Arango MD Work Phone: [facility] Work Phone: 1970 trivalent poliovirus vaccine, live, oral Raymundo Arango MD Work Phone: [facility] Work Phone: 1970 diphtheria, tetanus toxoids and pertussis vaccine Raymundo Arango MD Work Phone: [facility] Work Phone: 1970 diphtheria, tetanus toxoids and pertussis vaccine Raymundo Arango MD Work Phone: [facility] Work Phone: 1970 trivalent poliovirus vaccine, live, oral Raymundo Arango MD Work Phone: [facility] Work Phone: Payers Date Payer Category Payer Self-pay [id number] 2020 Private Health Insurance [facility] [employer] [id number] 2020-Present [phone] [address] [place] [address] HMO [id number] 2020 Private Health Insurance [id number] 2020 Private Health Insurance [id number] Unknown [facility] [id number] Unknown [id number] Social History Date Type Detail Facility Start: 02-28-2011 End: 02-10-2022 Tobacco smoking status NHIS Never smoked tobacco [facility] Start: 04-01-2021 End: 06-20-2024 Alcohol intake Current drinker of alcohol (finding) [facility] Start: 01-14-2021 End: 01-18-2022 History SDOH Alcohol Frequency 1 [facility] Start: 01-14-2021 End: 01-18-2022 History SDOH Alcohol Std Drinks 98 [facility] Start: 01-14-2021 End: 01-18-2022 History SDOH Social Connections Phone 2 [facility] Start: 01-14-2021 End: 01-18-2022 History SDOH Social Connections Meetings 3 [facility] Start: 01-14-2021 History SDOH Physica l Activity DPW 0 [facility] Start: 01-14-2021 End: 01-18-2022 History SDOH Financial 5 [facility] Start: 12-27-2019 Education 17 [facility] Start: 1970 Sex Assigned At Not on file [facility] Start: 02-28-2011 End: 02-10-2022 Tobacco use and exposure Smokeless tobacco non-user [facility] Work Phone: Start: 01-18-2022 History SDOH Physica l Activity DPW 4 [facility] Start: 01-18-2022 End: 11-28-2022 History of Social function [facility] Start: 01-18-2022 End: 11-28-2022 Social connection and isolation panel [facility] How often do you att end confucianist or congregational services? Patient refused [facility] Do you belong to any clubs or organizations such as confucianist groups, unions, fraternal or athletic groups, or school groups? No [facility] Are you now , , , , never or living with a partner? [facility] How often to you hav e a drink containing alcohol? Monthly or less [facility] How many standard dr inks containing alcohol do you have on a typical day? 1 or 2 [facility] How often do you hav e 6 or more drinks on 1 occasion? Never [facility] Do you feel stress - tense, restless, nervous, or anxious, or unable to sleep at night because your mind is troubled all the time - these days [OSQ] Only a little [facility] (I/We) worried elise er (my/our) food would run out before (I/we) got money to buy more. Never true [facility] Start: 12-13-2022 Tobacco smoking stat us NHIS Unknown if ever smoked [facility] Start: 1970 Sex Assigned At Female W [facility] How hard is it for y ou to pay for the very basics like food, housing, medical care, and heating Not very hard [facility] Functional Status Date Assessment Result Facility 03-30-2014 Are you deaf, or do you have serious difficulty hearing No 03/30/2014 10:34 AM Mariah Gamino Cma No [facility] 03-30-2014 Are you blind, or do you have serious difficulty seeing, even when wearing glasses No 03/30/2014 10:34 AM Mariah Gamino Cma No [facility] 03-30-2014 Do you have serious difficulty walking or climbing stairs No 03/30/2014 10:34 AM Mariah Gamino Cma No [facility] 03-30-2014 Do you have difficul ty dressing or bathing No 03/30/2014 10:34 AM Mariah Gamino Cma No [facility] 03-30-2014 Because of a physica l, mental, or emotional condition, do you have difficulty doing errands alone such as visiting a physician's office or shopping No 03/30/2014 10:34 AM Mariah Gamino Cma No [facility] Mental Status Date Assessment Result Facility 03-30-2014 Because of a physica l, mental, or emotional condition, do you have serious difficulty concentrating, remembering, or making decisions No 03/30/2014 10:34 AM Mariah Gamino Cma No [facility] Clinical Notes 08-28-2021 to 08-24-2024 Telephone Encounter - Shruti Ibarra - 08/24/2024 12:39 PM EDTTelephone Encounter - Shruti Ibarra - 08/24/2024 12:39 PM EDTPatient InstructionsPatient Instructions Note Date & Type Note Facility 08-24-2024 Telephone encounter Note Outside clinical documents scanned into [employer] and cd taken to Imaging Library to upload images. Thanks [facility] 08-24-2024 Miscellaneous Notes Outside clinical documents scanned into [employer] and cd taken to Imaging Library to upload images. Thanks documented in this encounter [facility] 06-20-2024 Instructions Renetta Witt MA - 06/20/2024 10:16 AM EDT Thank you for trusting me with your breast care today. Please remember to schedule your follow-up visit as soon as possible. Discussed breast health recommendations including routine breast self-awareness, clinical breast exams; annual mammography, minimal alcohol use, no tobacco use and 150min / week of aerobic exercise per week as your heart, lungs and joints allow. Wearing a well fitting (as in getting an updated professional fitting if it is has been some time) supportive bra is helpful for most women as well. If you develop a breast lump, breast skin changes, nipple discharge or breast pain, please understand to call her breast health team for a clinical breast exam with the understanding that breast imaging may be recommended at that time. Your Breast Care Team, Bridget Lopez CNP, Medical Breast Specialist Niru Heard, RN [phone] ([place]) Renetta Witt, Creative Writing Professor [phone] ([place] [place]) documented in this encounter [facility] 06-20-2024 History of Presen t illness Narrative Images from the original note were not included. MEDICAL BREAST PATIENT NAME: Merissa Hernández June 19, 2024 REFERRAL: She is referred by Brielle Hanna MD for an opinion regarding risk assessment. My final recommendations will be communicated back to the requesting physician by the way of the shared medical record, fax, or via US Mail. HISTORY of PRESENT ILLNESS: Merissa Hernández is a 54 year old postmenopausal female who presents to the [facility] today for risk assessment and to establish breast care. DBT mammogram was completed 05/13/24 with negative findings. Her LRS was calculated using the TC risk assessment model and determined to be 28.5% risk for developing breast cancer. She was referred to breast center for risk assessment The patient denies any breast masses, pain, skin changes, or nipple discharge. Genetic Testing: No No results found for: VITD25 She takes vitamin D 2000 units and a multivitamin daily. BMD: Date: 06/18/23; lowest T Score - 1.2; Diagnosis: Osteopenia Left hip PERSONAL BREAST HISTORY: Breast biopsy: 2008 per pt-benign Breast cysts: No Breast surgery: No Breast cancer: No CANCER SURVEILLANCE: Mammograms: Date in [facility]: 05/12/24; results - Negative Breast MRI: No Colonoscopy: Date in [facility]: 08/10/20; results - TA RISK FACTORS FOR BREAST CANCER: Age at the onset of menses: 11 years of age. P: 1 Age at the of first child: 32 years of age. She breast fed for 3 months total. Age at menopause: The patient underwent surgical menopause at age 36. Post-menopausal hormone therapy: Yes, ERT since 2006 She is S/P total hysterectomy with pathology cervical cancer; Date: 2006 She has had a hysterectomy and does not use control. History of Mantle Radiation prior to the age of 30: No Obesity: -Last 1 Encounter Wt Readings: Date: Wt: 05/02/2024 61.2 kg (135 lb) -21.79 kg/m2 Mammographic density: The breasts are heterogeneously dense which limits the sensitivity of mammography Personal History of Benign Atypical Breast Biopsy: No Alcohol use: Rare PAST MEDICAL HISTORY: Patient specifically denies history of: DVT, PE, migraine headaches without aura, abnormal uterine bleeding, abnormal uterine biopsies, osteopenia, and osteoporosis.+Migraine with auras SOCIAL HISTORY: Social History Tobacco Use Smoking status: Never Smokeless tobacco: Never Vaping Use Vaping status: Never Used Substance Use Topics Alcohol use: Yes Comment: couple times a year only Drug use: No Caffeine intake: 1-2 x per week Exercise: 30 minutes/5 times a week or more FAMILY HISTORY: Family history of breast cancer: Sister dx at age 47-alive and well-no genetic testing (currently 68) and Pa dx 70's Family history of ovarian cancer: MA dx at age 50- Number of sisters: 2 (unaffected sister had negative genetic testing) Number of maternal aunts: 3 Number of paternal aunts: 3 Ashkenazi Ancestry: no Other Cancer: Sister dx melanoma at age 54 and 60 There is no family history of prostate, colon, uterine, pancreatic, gastric, brain, renal cell or thyroid cancer. There is no family history of sarcoma or leukemia. Osteoporosis: Mother dx 50's- Stroke: MGM dx 70's- Blood Clot: None Heart attack: None Thyroid Nodule or Goiter: MGM Autism: None REVIEW OF SYSTEMS: The patient specifically denies unintentional weight loss, insomnia, hot flashes, night sweats, abnormal swelling in the arms or legs, chest pain, shortness of breath, persistant cough, heartburn, urinary incontinence, vaginal dryness, decreased libido, unusual bony pains or severe headaches. The sensitive examination was discussed with the Patient or Patient's Authorized Photographic Equipment Assembler. As applicable, any other physician, advance practice provider, medical student, or other health professional student that will be observing or involved in the sensitive examination for educational or training purposes was discussed with the Patient or Authorized Photographic Equipment Assembler. The Patient or Authorized Photographic Equipment Assembler has agreed to proceed with the sensitive examination. (Sensitive examination includes inspection and/or palpation of the breasts, pelvis, prostate and anorectal regions) PHYSICAL EXAM: Ht 167.6 cm (5' 6) Wt 61.2 kg (135 lb) LMP 12/13/2004 BMI 21.79 kg/m General: well-nourished, healthy, white, female, alert and oriented x 3, calm Skin: warm, dry, skin color, texture, turgor normal Head/Eyes: normocephalic, atraumatic, and anicteric Lymph nodes- The supraclavicular, axillary, and cervical regions are free of significant lymphadenopathy. Right breast-The skin, nipple and areola appear normal. There is no skin dimpling with movement of the pectoralis. There is no nipple retraction. No discharge can be elicited. The parenchya is moderately fibrocystic. There is no dominant masses in the breast. The axillary tail is normal. There is no tenderness noted with palpation. Left breast- The skin, nipple, and areola appear normal. There is no skin dimpling with movement of the pectoralis. There is no nipple retraction. No discharge can be elicited. The parenchyma is moderately fibrocystic. There is no dominant masses in the breast. The axillary tail is normal. There is no tenderness noted with palpation. IMAGING: Deferred The breasts are heterogeneously dense which limits the sensitivity of mammography. Assessment IMPRESSION/PLAN: Merissa Hernández is a 54 year old year old female with bilateral fibrocystic change, dense breasts, and increased risk for breast cancer due to FH There is no evidence of malignancy. The patient was reassured as to the benign nature of her clinical findings. Her data were entered into the Tyrer-Cuzick model for Risk Assessment. Her 10 year projected risk of developing invasive breast cancer is 8.5% and her lifetime risk of breast cancer is estimated to be 22.2%. She meets ACS criteria for screening breast MRI and will be followed twice yearly with clinical exams as well as annual DBT alternating with screening breast MRI. The pros and cons of screening MRI have been discussed with the patient including enhanced sensitivity and false positives. She meets [facility] care path criteria for screening MRI. I will order a screening MRI to be completed 11/10 to alternate with mammogram. The patient is responsible for getting pre-certification from her insurance company and is advised to ask about a deductible or co-pay. We discussed that her breast tissue is considered to be mammographically dense. This can limit the sensitivity of screening mammography. Additionally, patients with the highest breast density are felt to be at increased risk for breast cancer as compared to patients with the lowest density. Her breast tissue is heterogeneously dense-category C for dense tissue. I discussed merits of digital breast tomosynthesis for her continued screening mammogram. Dense breasts can lower the sensitivity for screening mammography. DBT is associated with a 25-40% improved sensitivity and 15% fewer callbacks. DBT is associated with 2-3 times the radiation exposure compared with digital mammography, but is still below the FDA limit for radiation Genetics referral made: Yes: Reason: I recommended her sister who was dx with breast cancer undergo testing. If she is unwilling or unable I discussed testing for Merissa Chemoprevention discussion: She would not be a good candidate for a SERM therapy because she has a history of Migraine with auras and is using ERT . The patient is advised to exercise regularly, achieve/maintain ideal body weight, and to limit alcohol consumption to less than 7 drinks weekly for breast cancer risk reduction and overall health. She will return in 6 months for follow-up evaluation after completing MRI of breast. She will call me in the interim should she have any questions or concerns. My final recommendations will be communicated back to the requesting physician by way of shared medical record or letter via US mail. I spent a total of 45 minutes minutes on the date of the service which included preparing to see the patient, [id number] patient care, completing clinical documentation, obtaining and/or reviewing separately obtained history, performing a medically appropriate examination, counseling and educating the patient/family/caregiver, ordering medications, tests, or procedures, and care coordination (not separately reported). Bridget Lopez APRN.YANY Medical Breast Specialist June 19, 2024 CC: Raymundo Arango [address] [place] [address] documented in this encounter [facility] 06-20-2024 Note HNO ID: [id number] Author: BRIDGET LOPEZ APRN.YANY Service: ? Author Type: Nurse Practitioner Type: Progress Notes Filed: 06/20/2024 16:45 Note Text: MEDICAL BREAST PATIENT NAME: Merissa Hernández June 19, 2024 REFERRAL: She is referred by Brielle Hanna MD for an opinion regarding risk assessment. My final recommendations will be communicated back to the requesting physician by the way of the shared medical record, fax, or via US Mail. HISTORY of PRESENT ILLNESS: Merissa Hernández is a 54 year old postmenopausal female who presents to the [facility] today for risk assessment and to establish breast care. DBT mammogram was completed 05/13/24 with negative findings. Her LRS was calculated using the TC risk assessment model and determined to be 28.5% risk for developing breast cancer. She was referred to breast center for risk assessment The patient denies any breast masses, pain, skin changes, or nipple discharge. Genetic Testing: No No results found for: VITD25 She takes vitamin D 2000 units and a multivitamin daily. BMD: Date: 06/18/23; lowest T Score - 1.2; Diagnosis: Osteopenia Left hip PERSONAL BREAST HISTORY: Breast biopsy: 2008 per pt-benign Breast cysts: No Breast surgery: No Breast cancer: No CANCER SURVEILLANCE: Mammograms: Date in [facility]: 05/12/24; results - Negative Breast MRI: No Colonoscopy: Date in [facility]: 08/10/20; results - TA RISK FACTORS FOR BREAST CANCER: Age at the onset of menses: 11 years of age. P: 1 Age at the of first child: 32 years of age. She breast fed for 3 months total. Age at menopause: The patient underwent surgical menopause at age 36. Post-menopausal hormone therapy: Yes, ERT since 2006 She is S/P total hysterectomy with pathology cervical cancer; Date: 2006 She has had a hysterectomy and does not use control. History of Mantle Radiation prior to the age of 30: No Obesity: -Last 1 Encounter Wt Readings: Date: Wt: 05/02/2024 61.2 kg (135 lb) -21.79 kg/m2 Mammographic density: The breasts are heterogeneously dense which limits the sensitivity of mammography Personal History of Benign Atypical Breast Biopsy: No Alcohol use: Rare PAST MEDICAL HISTORY: Patient specifically denies history of: DVT, PE, migraine headaches without aura, abnormal uterine bleeding, abnormal uterine biopsies, osteopenia, and osteoporosis.+Migraine with auras SOCIAL HISTORY: Social History Tobacco Use Smoking status: Never Smokeless tobacco: Never Vaping Use Vaping status: Never Used Substance Use Topics Alcohol use: Yes Comment: couple times a year only Drug use: No Caffeine intake: 1-2 x per week Exercise: 30 minutes/5 times a week or more FAMILY HISTORY: Family history of breast cancer: Sister dx at age 47-alive and well-no genetic testing (currently 68) and Pa dx 70's Family history of ovarian cancer: MA dx at age 50- Number of sisters: 2 (unaffected sister had negative genetic testing) Number of maternal aunts: 3 Number of paternal aunts: 3 Ashkenazi Ancestry: no Other Cancer: Sister dx melanoma at age 54 and 60 There is no family history of prostate, colon, uterine, pancreatic, gastric, brain, renal cell or thyroid cancer. There is no family history of sarcoma or leukemia. Osteoporosis: Mother dx 50's- Stroke: MGM dx 70's- Blood Clot: None Heart attack: None Thyroid Nodule or Goiter: MGM Autism: None REVIEW OF SYSTEMS: The patient specifically denies unintentional weight loss, insomnia, hot flashes, night sweats, abnormal swelling in the arms or legs, chest pain, shortness of breath, persistant cough, heartburn, urinary incontinence, vaginal dryness, decreased libido, unusual bony pains or severe headaches. The sensitive examination was discussed with the Patient or Patient's Authorized Photographic Equipment Assembler. As applicable, any other physician, advance practice provider, medical student, or other health professional student that will be observing or involved in the sensitive examination for educational or training purposes was discussed with the Patient or Authorized Photographic Equipment Assembler. The Patient or Authorized Photographic Equipment Assembler has agreed to proceed with the sensitive examination. (Sensitive examination includes inspection and/or palpation of the breasts, pelvis, prostate and anorectal regions) PHYSICAL EXAM: Ht 167.6 cm (5' 6) Wt 61.2 kg (135 lb) LMP 12/13/2004 BMI 21.79 kg/m? General: well-nourished, healthy, white, female, alert and oriented x 3, calm Skin: warm, dry, skin color, texture, turgor normal Head/Eyes: normocephalic, atraumatic, and anicteric Lymph nodes- The supraclavicular, axillary, and cervical regions are free of significant lymphadenopathy. Right breast-The skin, nipple and areola appear normal. There is no skin dimpling with movement of the pectoralis. There is no nipple retract (more content not included)... [facility] 06-02-2024 Telephone encounter Note Patient is scheduled with Dr Ordonez but does not need surgical intervention at this time She would like to be followed in medical breast for high risk Please reschedule with a medical breast provider [facility] Work Phone: 06-02-2024 Miscellaneous Notes Patient is scheduled with Dr Ordonez but does not need surgical intervention at this time She would like to be followed in medical breast for high risk Please reschedule with a medical breast provider documented in this encounter [facility] 05-12-2024 History of Presen t illness Narrative Radiology Service Progress Note PATIENT NAME: Merissa Hernández DATE OF SERVICE: May 12, 2024 TIME: 11:28 AM PATIENT IDENTITY VERIFICATION COMPLETED USING TWO (2) IDENTIFIERS: Name and Date of confirmed by patient verbally. FALL SCREENING: Has the patient had 2 falls in the last year or 1 fall with injury or currently using an Ambulatory Assistive Device (Walker, Cane, Wheelchair, Crutches, etc.)? No PATIENT GENDER DATA: Assigned female at . status: : No status: NO. PATIENT RELEVANT IMPLANT DATA REVIEWED: Not Applicable PATIENT PRESENTS WITH AN IMPLANTABLE OR ATTACHED GAS APPLIANCE SERVICER HELPER: No RADIOLOGY DEPARTMENT: Mammography PERIPHERAL IV DATA: Not applicable SIGNED BY: Gallo Phipps May 12, 2024 11:28 AM documented in this encounter [facility] 05-12-2024 Note HNO ID: [id number] Author: JOSE D SANCHEZ Mammo Tech Service: ? Author Type: Can Slider Type: Progress Notes Filed: 05/12/2024 11:28 Note Text: Radiology Service Progress Note PATIENT NAME: Merissa Hernández DATE OF SERVICE: May 12, 2024 TIME: 11:28 AM PATIENT IDENTITY VERIFICATION COMPLETED USING TWO (2) IDENTIFIERS: Name and Date of confirmed by patient verbally. FALL SCREENING: Has the patient had 2 falls in the last year or 1 fall with injury or currently using an Ambulatory Assistive Device (Walker, Cane, Wheelchair, Crutches, etc.)? No PATIENT GENDER DATA: Assigned female at . status: : No status: NO. PATIENT RELEVANT IMPLANT DATA REVIEWED: Not Applicable PATIENT PRESENTS WITH AN IMPLANTABLE OR ATTACHED GAS APPLIANCE SERVICER HELPER: No RADIOLOGY DEPARTMENT: Mammography PERIPHERAL IV DATA: Not applicable SIGNED BY: Gallo Phipps May 12, 2024 11:28 AM [facility] 05-02-2024 Note HNO ID: [id number] Author: BRIELLE HANNA MD Service: ? Author Type: Physician Type: Progress Notes Filed: 05/02/2024 14:29 Note Text: Guide offered: Patient declines. Merissa is a 53 year old who presents for an annual gynecologic exam without complaints. Daughter turned 21- went to [place] with her. Happy with vivelle dot- less breast tenderness. Postmenopausal: Yes since age 36 HYST with BSO HRT use: Yes, vivelle dot Still get period: No Menopause symptoms: None Time with current partner: 35 years Number of lifetime partners: 3 control frequency: Always HPV vaccine: No; Last pap smear: 2023 History of abnormal pap: Yes, history of abnormal PAP smears Bothersome pelvic pain: No Last mammogram: 2023 normal History of abnormal mammogram: No OB History Gravida1 Para1 Term0 Preterm0 AB0 Living0 SAB0 IAB0 Ectopic0 Multiple0 Live Births0 Problem Relation Age of Onset Breast Cancer Sister Heart Father Lung Cancer Father smoker Melanoma Sister Hypertension Brother SOCIAL HISTORY Social History Tobacco Use Smoking status: Never Smokeless tobacco: Never Vaping Use Vaping status: Never Used Substance Use Topics Alcohol use: Yes Comment: couple times a year only Drug use: No REVIEW OF SYSTEMS Abdomen: No abdominal pain, nausea, vomiting, diarrhea, or constipation. No bloating, early satiety, indigestion, or increased flatulence. Bladder: No dysuria, gross hematuria, urinary frequency, urinary urgency, or incontinence Breast: No breast lumps, nipple d/c, overlying skin changes, redness or skin retraction Allergies and current medication updated:Yes SENSITIVE EXAM: The sensitive examination was discussed with the Patient or Patient's Authorized Photographic Equipment Assembler. As applicable, any other physician, advance practice provider, medical student, or other health professional student that will be observing or involved in the sensitive examination for educational or training purposes was discussed with the Patient or Authorized Photographic Equipment Assembler. The Patient or Authorized Photographic Equipment Assembler has agreed to proceed with the sensitive examination. (Sensitive examination includes inspection and/or palpation of the breasts, pelvis, prostate and anorectal regions). EXAM: BP 106/60 Ht 5' 6 (1.68m) Wt 135 lb (61.2kg) LMP 12/13/2004 BMI 21.80 kg/(m2). GENERAL: pleasant, female in no apparent distress HEENT: Normocephalic, atraumatic, mucus membranes moist, and no lesions NECK: Supple, full range of motion, no adenopathy, and thyroid normal DERMATOLOGY: Normal, without lesions, non-icteric, and non-hirsute BREAST: soft, non-tender, symmetric, no dominant mass, normal nipple-areolar complex, no lymphadenopathy, and no nipple discharge CHEST: Normal inspiratory effort ABDOMEN: soft, non-tender, and no masses PELVIC: external genitalia normal, normal Bartholin's glands, urethra, Lavinia's glands, no vulvar lesions, good vaginal support, physiologic discharge present, normal appearing perineal body and perianal region, cervix surgically absent BIMANUAL: no adnexal masses, non-tender, and uterus surgically absent RECTOVAGINAL: deferred. NEURO: alert and oriented x3,exam grossly non-focal EXTREMITIES: normal ASSESSMENT/PLAN: 1) Health maintenance: Pap/HPV up to date. Mammogram ordered Mammogram up to date Nutrition, exercise and routine health maintenance exams reviewed. Calcium/Vitamin D supplementation information provided. Colon cancer screening: up to date with screening BMD: up to date 2) Follow up one year or sooner as needed 3) continue HRT Brielle Muñoz MD [facility] 05-02-2024 History of Presen t illness Narrative Guide offered: Patient declines. Merissa is a 53 year old who presents for an annual gynecologic exam without complaints. Daughter turned 21- went to [place] with her. Happy with vivelle dot- less breast tenderness. Postmenopausal: Yes since age 36 HYST with BSO HRT use: Yes, vivelle dot Still get period: No Menopause symptoms: None Time with current partner: 35 years Number of lifetime partners: 3 control frequency: Always HPV vaccine: No; Last pap smear: 2023 History of abnormal pap: Yes, history of abnormal PAP smears Bothersome pelvic pain: No Last mammogram: 2023 normal History of abnormal mammogram: No OB History Gravida1 Para1 Term0 Preterm0 AB0 Living0 SAB0 IAB0 Ectopic0 Multiple0 Live Births0 Problem Relation Age of Onset Breast Cancer Sister Heart Father Lung Cancer Father smoker Melanoma Sister Hypertension Brother SOCIAL HISTORY Social History Tobacco Use Smoking status: Never Smokeless tobacco: Never Vaping Use Vaping status: Never Used Substance Use Topics Alcohol use: Yes Comment: couple times a year only Drug use: No REVIEW OF SYSTEMS Abdomen: No abdominal pain, nausea, vomiting, diarrhea, or constipation. No bloating, early satiety, indigestion, or increased flatulence. Bladder: No dysuria, gross hematuria, urinary frequency, urinary urgency, or incontinence Breast: No breast lumps, nipple d/c, overlying skin changes, redness or skin retraction Allergies and current medication updated:Yes SENSITIVE EXAM: The sensitive examination was discussed with the Patient or Patient's Authorized Photographic Equipment Assembler. As applicable, any other physician, advance practice provider, medical student, or other health professional student that will be observing or involved in the sensitive examination for educational or training purposes was discussed with the Patient or Authorized Photographic Equipment Assembler. The Patient or Authorized Photographic Equipment Assembler has agreed to proceed with the sensitive examination. (Sensitive examination includes inspection and/or palpation of the breasts, pelvis, prostate and anorectal regions). EXAM: BP 106/60 Ht 5' 6 (1.68m) Wt 135 lb (61.2kg) LMP 12/13/2004 BMI 21.80 kg/(m^2). GENERAL: pleasant, female in no apparent distress HEENT: Normocephalic, atraumatic, mucus membranes moist, and no lesions NECK: Supple, full range of motion, no adenopathy, and thyroid normal DERMATOLOGY: Normal, without lesions, non-icteric, and non-hirsute BREAST: soft, non-tender, symmetric, no dominant mass, normal nipple-areolar complex, no lymphadenopathy, and no nipple discharge CHEST: Normal inspiratory effort ABDOMEN: soft, non-tender, and no masses PELVIC: external genitalia normal, normal Bartholin's glands, urethra, Lavinia's glands, no vulvar lesions, good vaginal support, physiologic discharge present, normal appearing perineal body and perianal region, cervix surgically absent BIMANUAL: no adnexal masses, non-tender, and uterus surgically absent RECTOVAGINAL: deferred. NEURO: alert and oriented x3,exam grossly non-focal EXTREMITIES: normal ASSESSMENT/PLAN: 1) Health maintenance: Pap/HPV up to date. Mammogram ordered Mammogram up to date Nutrition, exercise and routine health maintenance exams reviewed. Calcium/Vitamin D supplementation information provided. Colon cancer screening: up to date with screening BMD: up to date 2) Follow up one year or sooner as needed 3) continue HRT Brielle Muñoz MD documented in this encounter [facility] 04-22-2024 Note HNO ID: [id number] Author: LAILA GRIMES APRN.SHOE TREER Service: ? Author Type: Nurse Practitioner Type: Progress Notes Filed: 04/22/2024 11:32 Note Text: CHIEF COMPLAINT: Patient presents with: Physical HISTORY: Merissa Hernández is a 53 year old female who presents 04/22/2024 for her Yearly Physical Exam. They are here today for a wellness exam. Generally feels well and does not have complaints. Is able to complete ADL's with independence. Colonoscopy from 2020 had pathology of a tubular adenoma. Dr. Diaz recommended 5 year follow up. Bone density from 2023 showed osteopenia. 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 No Q2: Over the past two weeks, have you felt little interest or pleasure in doing things? 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 Family Hx Breast CA: sister and aunt with breast ca Family Hx Colon CA: no Past Medical History: PAST MEDICAL HISTORY Diagnosis Date Abnormal mammogram, unspecified left breast Family history of breast cancer Malignant melanoma of skin of lower limb, including hip (HCC) 02/04/2008 Malignant neoplasm of cervix uteri, unspecified site 05/28/06 had a hysterectomy due to the cervical cancer Mitral valve disorders(424.0) last echo was normal; gets occasional palpitations Osteopenia Family Medical History: FAMILY HISTORY Problem Relation Age of Onset Breast Cancer Sister Heart Father Lung Cancer Father smoker Melanoma Sister Hypertension Brother Social History: Social History Tobacco Use Smoking status: Never Smokeless tobacco: Never Vaping Use Vaping status: Never Used Substance Use Topics Alcohol use: Yes Comment: couple times a year only Drug use: No Allergies: ALLERGIES Allergen Reactions Azithromycin Hives Sulfa (Sulfonamide * Rash Medications: Current Outpatient Medications Medication Sig TYRVAYA 0.03 mg/spray nasal spray Use 1 [place] in each nostril two times a day. cycloSPORINE (RESTASIS) 0.05 % ophthalmic emulsion 1 Drop twice daily. MULTI-VITAMIN ORAL Take by mouth. estradiol (VIVELLE-DOT) 0.05 mg/24 hr patch Apply 1 Patch as directed two times a week. TWICE WEEKLY No current facility-administered medications for this visit. Chronic Problem List: ACTIVE PROBLEM LIST Surgical Menopause On Hormone Replacement Therapy - 09/30/2023 Osteopenia Family History of Breast Cancer - 10/23/2009 Comment: Normal mammo 10/15/2009 [facility] Hyperlipidemia, Mixed - 05/03/2008 Personal History of Malignant Neoplasm of Cervix Uteri - 02/04/2008 Malignant Melanoma of Skin of Lower Limb, Including Hip (Hcc) - 02/04/2008 HEMORRHOIDS EXTERNAL THROMBOSED - 12/30/2004 Review of Systems Review of Systems Constitutional: Negative. Respiratory: Negative. Cardiovascular: Negative. OBJECTIVE BP 110/70 Pulse 75 Ht 5' 5.75 (1.67m) Wt 132 lb 7.9 oz (60.1kg) SpO2 98% LMP 12/13/2004 BMI 21.55 kg/(m2). Physical Exam Vitals and nursing note reviewed. Constitutional: General: She is awake. She is not in acute distress. Appearance: Normal appearance. She is well-developed and well-groomed. She is not ill-appearing, toxic-appearing or diaphoretic. HENT: Head: Normocephalic. Right Ear: External ear normal. Left Ear: External ear normal. Nose: Nose normal. Eyes: General: Vision grossly intact. Conjunctiva/sclera: Conjunctivae normal. Pupils: Pupils are equal, round, and reactive to light. Neck: Vascular: No carotid bruit or JVD. Trachea: Trachea normal. Cardiovascular: Rate and Rhythm: Normal rate and regular rhythm. Pulses: Normal pulses. Heart sounds: Normal heart sounds. No murmur heard. Pulmonary: Effort: Pulmonary effort is normal. No accessory muscle usage, prolonged expiration or respiratory distress. Breath sounds: Normal breath sounds. Musculoskeletal: Cervical back: Neck supple. Right lower leg: No edema. Left lower leg: No edema. Skin: General: Skin is warm and dry. Capillary Refill: Capillary refill takes less than 2 seconds. Neurological: General: No focal deficit present. Mental Status: She is alert and oriented to person, place, and time. Mental status is at baseline. Psychiatric: Attention and Perception: Attention and perception normal. Mood and Affect: Mood and affect normal. Speech: Speech normal. Behavior: Behavior normal. Behavior is cooperative. Thought Content: Thought content normal. Cognition and Memory: Cognition and memory normal. Judgment: Judgment normal. ASSESSMENT/PLAN: 1. Routine medical exam - ICD9: V70.0, ICD10: Z00.00 (primary diagnosis) - Counseled on healthy diet and regular exercise - Follow up fo (more content not included)... [facility] 04-22-2024 History of Presen t illness Narrative CHIEF COMPLAINT: Patient presents with: Physical HISTORY: Merissa Hernández is a 53 year old female who presents 04/22/2024 for her Yearly Physical Exam. They are here today for a wellness exam. Generally feels well and does not have complaints. Is able to complete ADL's with independence. Colonoscopy from 2020 had pathology of a tubular adenoma. Dr. Diaz recommended 5 year follow up. Bone density from 2023 showed osteopenia. 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 No Q2: Over the past two weeks, have you felt little interest or pleasure in doing things? 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 Family Hx Breast CA: sister and aunt with breast ca Family Hx Colon CA: no Past Medical History: PAST MEDICAL HISTORY Diagnosis Date Abnormal mammogram, unspecified left breast Family history of breast cancer Malignant melanoma of skin of lower limb, including hip (HCC) 02/04/2008 Malignant neoplasm of cervix uteri, unspecified site 05/28/06 had a hysterectomy due to the cervical cancer Mitral valve disorders(424.0) last echo was normal; gets occasional palpitations Osteopenia Family Medical History: FAMILY HISTORY Problem Relation Age of Onset Breast Cancer Sister Heart Father Lung Cancer Father smoker Melanoma Sister Hypertension Brother Social History: Social History Tobacco Use Smoking status: Never Smokeless tobacco: Never Vaping Use Vaping status: Never Used Substance Use Topics Alcohol use: Yes Comment: couple times a year only Drug use: No Allergies: ALLERGIES Allergen Reactions Azithromycin Hives Sulfa (Sulfonamide * Rash Medications: Current Outpatient Medications Medication Sig TYRVAYA 0.03 mg/spray nasal spray Use 1 [place] in each nostril two times a day. cycloSPORINE (RESTASIS) 0.05 % ophthalmic emulsion 1 Drop twice daily. MULTI-VITAMIN ORAL Take by mouth. estradiol (VIVELLE-DOT) 0.05 mg/24 hr patch Apply 1 Patch as directed two times a week. TWICE WEEKLY No current facility-administered medications for this visit. Chronic Problem List: ACTIVE PROBLEM LIST Surgical Menopause On Hormone Replacement Therapy - 09/30/2023 Osteopenia Family History of Breast Cancer - 10/23/2009 Comment: Normal mammo 10/15/2009 [facility] Hyperlipidemia, Mixed - 05/03/2008 Personal History of Malignant Neoplasm of Cervix Uteri - 02/04/2008 Malignant Melanoma of Skin of Lower Limb, Including Hip (Hcc) - 02/04/2008 HEMORRHOIDS EXTERNAL THROMBOSED - 12/30/2004 Review of Systems Review of Systems Constitutional: Negative. Respiratory: Negative. Cardiovascular: Negative. OBJECTIVE BP 110/70 Pulse 75 Ht 5' 5.75 (1.67m) Wt 132 lb 7.9 oz (60.1kg) SpO2 98% LMP 12/13/2004 BMI 21.55 kg/(m^2). Physical Exam Vitals and nursing note reviewed. Constitutional: General: She is awake. She is not in acute distress. Appearance: Normal appearance. She is well-developed and well-groomed. She is not ill-appearing, toxic-appearing or diaphoretic. HENT: Head: Normocephalic. Right Ear: External ear normal. Left Ear: External ear normal. Nose: Nose normal. Eyes: General: Vision grossly intact. Conjunctiva/sclera: Conjunctivae normal. Pupils: Pupils are equal, round, and reactive to light. Neck: Vascular: No carotid bruit or JVD. Trachea: Trachea normal. Cardiovascular: Rate and Rhythm: Normal rate and regular rhythm. Pulses: Normal pulses. Heart sounds: Normal heart sounds. No murmur heard. Pulmonary: Effort: Pulmonary effort is normal. No accessory muscle usage, prolonged expiration or respiratory distress. Breath sounds: Normal breath sounds. Musculoskeletal: Cervical back: Neck supple. Right lower leg: No edema. Left lower leg: No edema. Skin: General: Skin is warm and dry. Capillary Refill: Capillary refill takes less than 2 seconds. Neurological: General: No focal deficit present. Mental Status: She is alert and oriented to person, place, and time. Mental status is at baseline. Psychiatric: Attention and Perception: Attention and perception normal. Mood and Affect: Mood and affect normal. Speech: Speech normal. Behavior: Behavior normal. Behavior is cooperative. Thought Content: Thought content normal. Cognition and Memory: Cognition and memory normal. Judgment: Judgment normal. ASSESSMENT/PLAN: 1. Routine medical exam - ICD9: V70.0, ICD10: Z00.00 (primary diagnosis) - Counseled on healthy diet and regular exercise - Follow up for annual exam in one year 2. Screening for depression - ICD9: V79.0, ICD10: Z13.31 - DEPRESSION SCREENING 3. Encounter for screening examination for other mental health and behavioral disorders - ICD9: V79.8, ICD10: Z13.39 - ANXIETY SCREENING 4. Osteopenia, unspecified location - ICD9: 733.90, ICD10: M85.80 - Reviewed Calcium and Vitamin D supplements/intake in diet and weight bearing exercise as tolerated 5. Encounter for therapeutic drug monitoring - ICD9: V58.83, ICD10: Z51.81 - COMPREHENSIVE METABOLIC PANEL 6. Screening for lipid disorders - ICD9: V77.91, ICD10: Z13.220 - LIPID PANEL BASIC 7. Encounter for screening for diabetes mellitus - ICD9: V77.1, ICD10: Z13.1 - COMPREHENSIVE METABOLIC PANEL Wellness exam completed. Health maintenance reviewed and updated. Chronic conditions and medications reviewed and updated as needed. Encouraged regular physical activity as tolerated, Healthy diet, and health promoting lifestyle. Encouraged regular eye doctor and dental visits. Portions of this note have been entered by ancillary staff. I have reviewed and when necessary edited, so that they are an adequate record of my encounter with this patient Please note that parts of this document were created using voice recognition software and therefore may contain grammatical errors. Patient verbalizes understanding of instructions from today's visit and in agreement with treatment plan. Questions answered. Agrees to call the office if questions, concerns or issues with acute symptoms not improving or if they worsen. See diagnoses and orders for additional plan(s). Allergies and medications were reviewed, list was updated, and refills given if needed. Past medical, surgical, social, and family history reviewed and updated as appropriate. Encouraged proper diet & exercise as well as compliance with taking medications. Age-appropriate health preventative measures were discussed. Return in about 1 year (around 04/22/2025) for Wellness physical.. Laila Grimes APRN-YANY documented in this encounter [facility] 01-07-2024 Note HNO ID: [id number] Author: AYLIN JAVIER LPN Service: ? Author Type: LICENSED NURSE Type: Progress Notes Filed: 01/07/2024 10:08 Note Text: Patient presents for Flu and COVID vaccines. Denies any problems at this time. Tolerated injections well. Aylin Javier LPN [facility] 01-07-2024 History of Presen t illness Narrative Patient presents for Flu and COVID vaccines. Denies any problems at this time. Tolerated injections well. Aylin Javier LPN documented in this encounter [facility] 12-21-2023 Telephone encounter Note filed [facility] 12-21-2023 Miscellaneous Notes filed Patient calling requesting a refill. Patient last seen for annual exam on 04/20/23, has next annual scheduled for 04/20/24. Can you file pended medication in DM's absence? Emelyn Hidalgo RN documented in this encounter [facility] 12-21-2023 Telephone encounter Note Patient calling requesting a refill. Patient last seen for annual exam on 04/20/23, has next annual scheduled for 04/20/24. Can you file pended medication in DM's absence? Emelyn Hidalgo RN [facility] 09-30-2023 Note HNO ID: [id number] Author: BRIELLE HANNA MD Service: ? Author Type: Physician Type: Progress Notes Filed: 09/30/2023 22:20 Note Text: Merissa Hernández is a 53 year old female who presents for discussion regarding HRT. Was off estrogen for 3-4 months but didn't feel great- read all the benefits, restarted it and feels better. Pt takes PO estrogen and was curious if she should be using the patch to decrease risk of Clots. Pt here for discussion regarding risks/benefits. Pt with h/o TVH/BSO age 36 for cervical dysplasia. 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 Comments: Sexual Activity: Yes; Male Contraception: No contraception data on record PAST MEDICAL HISTORY No date: Abnormal mammogram, unspecified Comment: left breast No date: Family history of breast cancer 02/04/2008: Malignant melanoma of skin of lower limb, including hip (HCC) 05/28/06: Malignant neoplasm of cervix uteri, unspecified site Comment: had a hysterectomy due to the cervical cancer No date: Mitral valve disorders(424.0) Comment: last echo was normal; gets occasional palpitations No date: Osteopenia PAST SURGICAL HISTORY 2007: ARTHROSCOPY KNEE DIAGNOSTIC W/WO SYNOVIAL BX SPX Comment: Arthroscopy, knee,right 2002: DELIVERY ONLY Comment: , low cervical 08/10/2020: COLONOSCOPY FLX DX W/COLLJ SPEC WHEN PFRMD No date: EYE SURGERY HX 1995: HEMORRHOIDECTOMY INT AND XTRNL 2/> COLUMN/GENO 01/2008: PAST SURGICAL HISTORY OF Comment: LLE Melanoma removed 01/08/2009: STEREOTACTIC CORE BIOPSY Comment: left breast 2007: TOTAL ABDOMINAL HYSTERECT W/WO RMVL TUBE OVARY Comment: Hysterectomy, NAIMA No date: VAGINAL HYSTERECTOMY FAMILY HISTORY Problem Relation Age of Onset - Breast Cancer Sister - Heart Father - Lung Cancer Father smoker - Melanoma Sister - Hypertension Brother Social History Tobacco Use - Smoking status: Never - Smokeless tobacco: Never Vaping Use - Vaping Use: Never used Substance Use Topics - Alcohol use: Yes Comment: couple times a year only - Drug use: No Current Outpatient Medications Medication Sig - estradiol (ESTRACE) 1 mg tablet Take 1 tablet by mouth once daily. - TYRVAYA 0.03 mg/spray nasal spray Use 1 [place] in each nostril two times a day. - Evening [place] Oil 500 mg cap Take 1 capsule by mouth once daily. - cycloSPORINE (RESTASIS) 0.05 % ophthalmic emulsion 1 Drop twice daily. - MULTI-VITAMIN ORAL Take by mouth. No current facility-administered medications for this visit. Allergies As of Date: 09/30/2023 Allergen Noted Reaction AZITHROMYCIN 10/05/2006 Hives ENVIRONMENT ALLERGIES [OTHER] 12/14/2004 SULFA (SULFONAMIDE ANTIBIOTICS) 12/14/2004 Rash Fully Assessed 09/30/2023 REVIEW OF SYSTEMS . Expanded ROS: N/A Allergies and current medication updated:Yes EXAM: BP 112/64 Wt 144 lb (65.3kg) LMP 12/13/2004 GENERAL: pleasant, female in no apparent distress HEENT: Normocephalic and atraumatic NECK: Supple and full range of motion DERMATOLOGY: Normal and without lesions NEURO: alert and oriented x3,exam grossly non-focal EXTREMITIES: normal ASSESSMENT AND PLAN: Encounter Diagnosis ICD-10-CM 1. 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 Osteopenia, unspecified location M85.80 3. Discussed options with patient low risk to remain on PO estrogen vs changing to Patch. Discussed options with week vs twice weekly patch. Discussed that patch can cause irritation from adhesive. Reviewed how to apply. After discussion of R/B pt would like trial of patch. Medical Decision Making: Problems: Low: Acute, uncomplicated illness or injury Risk: Moderate: Drug management and Moderate risk from testing/treatment Medical Decision Making Level: 3 - Low Brielle Muñoz MD [facility] 09-30-2023 History of Presen t illness Narrative Merissa Hernández is a 53 year old female who presents for discussion regarding HRT. Was off estrogen for 3-4 months but didn't feel great- read all the benefits, restarted it and feels better. Pt takes PO estrogen and was curious if she should be using the patch to decrease risk of Clots. Pt here for discussion regarding risks/benefits. Pt with h/o TVH/BSO age 36 for cervical dysplasia. 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 Comments: Sexual Activity: Yes; Male Contraception: No contraception data on record PAST MEDICAL HISTORY No date: Abnormal mammogram, unspecified Comment: left breast No date: Family history of breast cancer 02/04/2008: Malignant melanoma of skin of lower limb, including hip (HCC) 05/28/06: Malignant neoplasm of cervix uteri, unspecified site Comment: had a hysterectomy due to the cervical cancer No date: Mitral valve disorders(424.0) Comment: last echo was normal; gets occasional palpitations No date: Osteopenia PAST SURGICAL HISTORY 2007: ARTHROSCOPY KNEE DIAGNOSTIC W/WO SYNOVIAL BX SPX Comment: Arthroscopy, knee,right 2002: DELIVERY ONLY Comment: , low cervical 08/10/2020: COLONOSCOPY FLX DX W/COLLJ SPEC WHEN PFRMD No date: EYE SURGERY HX 1995: HEMORRHOIDECTOMY INT & XTRNL / COLUMN/GENO 01/2008: PAST SURGICAL HISTORY OF Comment: LLE Melanoma removed 01/08/2009: STEREOTACTIC CORE BIOPSY Comment: left breast 2007: TOTAL ABDOMINAL HYSTERECT W/WO RMVL TUBE OVARY Comment: Hysterectomy, NAIMA No date: VAGINAL HYSTERECTOMY FAMILY HISTORY Problem Relation Age of Onset Breast Cancer Sister Heart Father Lung Cancer Father smoker Melanoma Sister Hypertension Brother Social History Tobacco Use Smoking status: Never Smokeless tobacco: Never Vaping Use Vaping Use: Never used Substance Use Topics Alcohol use: Yes Comment: couple times a year only Drug use: No Current Outpatient Medications Medication Sig estradiol (ESTRACE) 1 mg tablet Take 1 tablet by mouth once daily. TYRVAYA 0.03 mg/spray nasal spray Use 1 [place] in each nostril two times a day. Evening [place] Oil 500 mg cap Take 1 capsule by mouth once daily. cycloSPORINE (RESTASIS) 0.05 % ophthalmic emulsion 1 Drop twice daily. MULTI-VITAMIN ORAL Take by mouth. No current facility-administered medications for this visit. Allergies As of Date: 09/30/2023 Allergen Noted Reaction AZITHROMYCIN 10/05/2006 Hives ENVIRONMENT ALLERGIES [OTHER] 12/14/2004 SULFA (SULFONAMIDE ANTIBIOTICS) 12/14/2004 Rash Fully Assessed 09/30/2023 REVIEW OF SYSTEMS . Expanded ROS: N/A Allergies and current medication updated:Yes EXAM: BP 112/64 Wt 144 lb (65.3kg) LMP 12/13/2004 GENERAL: pleasant, female in no apparent distress HEENT: Normocephalic and atraumatic NECK: Supple and full range of motion DERMATOLOGY: Normal and without lesions NEURO: alert and oriented x3,exam grossly non-focal EXTREMITIES: normal ASSESSMENT AND PLAN: Encounter Diagnosis ICD-10-CM 1. 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 Osteopenia, unspecified location M85.80 3. Discussed options with patient low risk to remain on PO estrogen vs changing to Patch. Discussed options with week vs twice weekly patch. Discussed that patch can cause irritation from adhesive. Reviewed how to apply. After discussion of R/B pt would like trial of patch. Medical Decision Making: Problems: Low: Acute, uncomplicated illness or injury Risk: Moderate: Drug management and Moderate risk from testing/treatment Medical Decision Making Level: 3 - Low Brielle Muñoz MD documented in this encounter [facility] 09-16-2023 Telephone encounter Note Pt called stating she has appt with DM on 09/30/23, but will run out of medication prior to appt. Requested Prescriptions Pending Prescriptions Disp Refills estradiol (ESTRACE) 1 mg tablet 90 tablet 0 Sig: Take 1 tablet by mouth once daily. Aleksandra Berg RN [facility] 09-16-2023 Miscellaneous Notes Pt called stating she has appt with DM on 09/30/23, but will run out of medication prior to appt. Requested Prescriptions Pending Prescriptions Disp Refills estradiol (ESTRACE) 1 mg tablet 90 tablet 0 Sig: Take 1 tablet by mouth once daily. Aleksandra Berg, ARTURO documented in this encounter [facility] 08-11-2023 Telephone encounter Note schedule appointment in office or virtual. DM patient. Page Gonzalez MD [facility] Work Phone: 08-11-2023 Miscellaneous Notes schedule appointment in office or virtual. DM patient. Page Gonzalez MD documented in this encounter [facility] 06-18-2023 History of Presen t illness Narrative Radiology Service Progress Note PATIENT NAME: Merissa Hernández DATE OF SERVICE: June 18, 2023 TIME: 9:00 AM PATIENT IDENTITY VERIFICATION COMPLETED USING TWO (2) IDENTIFIERS: Name and Date of confirmed by patient verbally. FALL SCREENING: Has the patient had 2 falls in the last year or 1 fall with injury or currently using an Ambulatory Assistive Device (Walker, Cane, Wheelchair, Crutches, etc.)? No PATIENT GENDER DATA: Female. status: : No status: NO. PATIENT RELEVANT IMPLANT DATA REVIEWED: Not Applicable PATIENT PRESENTS WITH AN IMPLANTABLE OR ATTACHED GAS APPLIANCE SERVICER HELPER: No RADIOLOGY DEPARTMENT: Bone Density PERIPHERAL IV DATA: Not applicable SIGNED BY: RT Jordin(R) June 18, 2023 9:00 AM documented in this encounter [facility] 06-11-2023 History of Presen t illness Narrative ordered Please file order documented in this encounter [facility] 06-11-2023 Instructions Vicki Diaz MA - 06/11/2023 1:11 PM EDT BONE MINERAL DENSITY PATIENT INSTRUCTIONS ========= Bone mineral density testing measures the amount of calcium in certain parts of your bones. This information determines how strong your bones are. The test is used to detect osteoporosis, a disease in which the bone's mineral content and density are low, increasing a person's risk of fractures. The lumbar spine (lower back) and the hip are the skeletal sites usually examined. For the test, remember that: 1. You cannot take this test if you are . 2. Eat a normal diet on the day of the test. 3. Take your medications as you normally would. 4. DO NOT take calcium supplements (such as Tums) for 24 hours before the test. 5. On the day of the test, leave valuables (jewelry or credit cards) at home. 6. The test should be performed prior to oral, rectal or IV contrast studies, or at least 7 days after any of these studies. For the test, you may be asked to wear a hospital gown. You will lie on your back, on a padded table, in a comfortable position. Generally, you can resume your usual activities immediately. documented in this encounter [facility] 05-22-2023 History of Presen t illness Narrative Patient presents for Shingrix vaccine. Denies any problems at this time. Tolerated injection well. Aylin Javier LPN documented in this encounter [facility] 05-08-2023 Miscellaneous Notes May 08, 2023 PID: [id number] Merissa Hernández [address] [place] [address] Dear Ms. Hernández, We are pleased to inform you that the results of your recent breast imaging exam on 05/07/2023 are normal. Your mammogram demonstrates that you have dense breast tissue, which could hide abnormalities. Dense breast tissue, in and of itself, is a relatively common condition. Therefore, this information is not provided to cause undue concern; rather, it is to raise your awareness and promote discussion with your health care provider regarding the presence of dense breast tissue in addition to other risk factors. Early detection of cancer is very important. We also understand recommendations regarding breast cancer screening are controversial. Please discuss with your primary care provider which strategy is best for you and whether a mammogram is right for you. Your imaging studies and report will be kept on file at [facility] as part of your permanent medical record and are available for your continuing care. Thank you for allowing us to help in meeting your health care needs. Sincerely, Dr. Bernstein Interpreting Radiologist [facility] (Normal over 40) documented in this encounter [facility] 05-07-2023 History of Presen t illness Narrative Radiology Service Progress Note PATIENT NAME: Merissa Hernández DATE OF SERVICE: May 07, 2023 TIME: 10:12 AM PATIENT IDENTITY VERIFICATION COMPLETED USING TWO (2) IDENTIFIERS: Name and Date of confirmed by patient verbally. FALL SCREENING: Has the patient had 2 falls in the last year or 1 fall with injury or currently using an Ambulatory Assistive Device (Walker, Cane, Wheelchair, Crutches, etc.)? No PATIENT GENDER DATA: Female. status: : No status: NO. PATIENT RELEVANT IMPLANT DATA REVIEWED: Not Applicable PATIENT PRESENTS WITH AN IMPLANTABLE OR ATTACHED GAS APPLIANCE SERVICER HELPER: No RADIOLOGY DEPARTMENT: Mammography PERIPHERAL IV DATA: Not applicable SIGNED BY: Navin Tran Loxam Holdingo Valerie May 07, 2023 10:12 AM documented in this encounter [facility] 04-20-2023 History of Presen t illness Narrative Guide offered: Patient declines. Merissa is a 52 year old who presents for an annual gynecologic exam without complaints. May stop HRT this year. Daughter in Marching band at [employer] [facility] [facility]- traveling abroad in December- planning to join her. Postmenopausal: surgical menopause HRT use: Yes, Estradiol How long: years. Last Pap: 03/28/2020 normal HPV: N/A History of abnormal pap: Yes hysterectomy 2006 - cervical ca Last mammogram: 2022 normal History of abnormal mammogram: No Sexually active: Yes History of STDS: HPV Patient concerns for STD exposure: No. 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 Comments: Sexual Activity: Yes; Male Contraception: No contraception data on record PAST MEDICAL HISTORY Diagnosis Date Abnormal mammogram, unspecified left breast Family history of breast cancer Malignant melanoma of skin of lower limb, including hip (HCC) 02/04/2008 Malignant neoplasm of cervix uteri, unspecified site 05/28/06 had a hysterectomy due to the cervical cancer Mitral valve disorders(424.0) last echo was normal; gets occasional palpitations Osteopenia PAST SURGICAL HISTORY Procedure Laterality Date ARTHROSCOPY KNEE DIAGNOSTIC W/WO SYNOVIAL BX SPX 2007 Arthroscopy, knee,right DELIVERY ONLY 2002 , low cervical COLONOSCOPY FLX DX W/COLLJ SPEC WHEN PFRMD 08/10/2020 EYE SURGERY HX HEMORRHOIDECTOMY INT & XTRNL 2/> COLUMN/GENO 1995 PAST SURGICAL HISTORY OF 01/2008 LLE Melanoma removed STEREOTACTIC CORE BIOPSY 01/08/2009 left breast TOTAL ABDOMINAL HYSTERECT W/WO RMVL TUBE OVARY 2007 Hysterectomy, NAIMA VAGINAL HYSTERECTOMY FAMILY HISTORY Problem Relation Age of Onset Breast Cancer Sister Heart Father Lung Cancer Father smoker Melanoma Sister Hypertension Brother SOCIAL HISTORY Social History Tobacco Use Smoking status: Never Smokeless tobacco: Never Vaping Use Vaping Use: Never used Substance Use Topics Alcohol use: Yes Comment: couple times a year only Drug use: No REVIEW OF SYSTEMS Abdomen: No abdominal pain, nausea, vomiting, diarrhea, or constipation. No bloating, early satiety, indigestion, or increased flatulence. Bladder: No dysuria, gross hematuria, urinary frequency, urinary urgency, or incontinence Breast: No breast lumps, nipple d/c, overlying skin changes, redness or skin retraction- painful breast cysts LEFT- consistent for years Allergies and current medication updated:Yes EXAM: BP 118/66 Ht 5' 6 (1.68m) Wt 144 lb (65.3kg) LMP 12/13/2004 BMI 23.25 kg/(m^2). GENERAL: pleasant, female in no apparent distress HEENT: Normocephalic, atraumatic, mucus membranes moist, and no lesions NECK: Supple, full range of motion, no adenopathy, and thyroid normal DERMATOLOGY: Normal, without lesions, non-icteric, and non-hirsute BREAST: soft, non-tender, symmetric, no dominant mass, normal nipple-areolar complex, no lymphadenopathy, and no nipple discharge ABDOMEN: soft, non-tender, and no masses PELVIC: external genitalia normal, normal Bartholin's glands, urethra, Lavinia's glands, no vulvar lesions, good vaginal support, physiologic discharge present, normal appearing perineal body and perianal region, cervix surgically absent BIMANUAL: no adnexal masses, non-tender, and uterus surgically absent RECTOVAGINAL: deferred. NEURO: alert and oriented x3,exam grossly non-focal EXTREMITIES: normal ASSESSMENT/PLAN: 1) Health maintenance: Pap done with HPV. Mammogram ordered Mammogram up to date Nutrition, exercise and routine health maintenance exams reviewed. Calcium/Vitamin D supplementation information provided. Colon cancer screening: up to date with screening BMD: ordered 2) Follow up one year or sooner as needed 3) HRT reviewed- pt may discontinue Brielle Muñoz MD documented in this encounter [facility] 04-18-2022 Miscellaneous Notes April 21, 2022 PID: [id number] Merissa Hernández [address] [place] [address] Dear Ms. Hernández, We are pleased to inform you that the results of your recent breast imaging exam on 04/17/2022 are normal. Your mammogram demonstrates that you have dense breast tissue, which could hide abnormalities. Dense breast tissue, in and of itself, is a relatively common condition. Therefore, this information is not provided to cause undue concern; rather, it is to raise your awareness and promote discussion with your health care provider regarding the presence of dense breast tissue in addition to other risk factors. Early detection of cancer is very important. We also understand recommendations regarding breast cancer screening are controversial. Please discuss with your primary care provider which strategy is best for you and whether a mammogram is right for you. Your imaging studies and report will be kept on file at [facility] as part of your permanent medical record and are available for your continuing care. Thank you for allowing us to help in meeting your health care needs. Sincerely, Dr. Saba Interpreting Radiologist [facility] (Normal over 40) documented in this encounter [facility] 04-17-2022 History of Presen t illness Narrative Radiology Service Progress Note PATIENT NAME: Merissa Hernández DATE OF SERVICE: April 17, 2022 TIME: 1:05 PM PATIENT IDENTITY VERIFICATION COMPLETED USING TWO (2) IDENTIFIERS: Name and Date of confirmed by patient verbally. FALL SCREENING: Has the patient had 2 falls in the last year or 1 fall with injury or currently using an Ambulatory Assistive Device (Walker, Cane, Wheelchair, Crutches, etc.)? No PATIENT GENDER DATA: Female. status: : No status: NO. PATIENT RELEVANT IMPLANT DATA REVIEWED: Not Applicable RADIOLOGY DEPARTMENT: Mammography PERIPHERAL IV DATA: Not applicable SIGNED BY: Luba Baez Loxam Holdingo [employer] April 17, 2022 1:05 PM documented in this encounter [facility] 04-17-2022 History of Presen t illness Narrative Merissa is a 51 year old who presents for an annual gynecologic exam with complaints, bilateral breast pain . Her daughter went to college at [employer]. Postmenopausal: Yes since age 35, hysterectomy HRT use: Yes, estradiol How long: since hysterectomy. 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 Comments: Sexual Activity: Yes; Male Contraception: No contraception data on record PAST MEDICAL HISTORY Diagnosis Date Abnormal mammogram, unspecified left breast Family history of breast cancer Malignant melanoma of skin of lower limb, including hip (HCC) 02/04/2008 Malignant neoplasm of cervix uteri, unspecified site 05/28/06 had a hysterectomy due to the cervical cancer Mitral valve disorders(424.0) last echo was normal; gets occasional palpitations Osteopenia PAST SURGICAL HISTORY Procedure Laterality Date ARTHROSCOPY KNEE DIAGNOSTIC W/WO SYNOVIAL BX SPX 2008 Arthroscopy, knee,right DELIVERY ONLY 2002 , low cervical COLONOSCOPY FLX DX W/COLLJ SPEC WHEN PFRMD 08/10/2020 EYE SURGERY HX HEMORRHOIDECTOMY INT & XTRNL COLUMN/GENO 1995 PAST SURGICAL HISTORY OF 01/2008 LLE Melanoma removed STEREOTACTIC CORE BIOPSY 01/08/2009 left breast TOTAL ABDOMINAL HYSTERECT W/WO RMVL TUBE OVARY 2007 Hysterectomy, NAIMA VAGINAL HYSTERECTOMY FAMILY HISTORY Problem Relation Age of Onset Breast Cancer Sister Heart Father Lung Cancer Father smoker Melanoma Sister Hypertension Brother SOCIAL HISTORY Social History Tobacco Use Smoking status: Never Smokeless tobacco: Never Vaping Use Vaping Use: Never used Substance Use Topics Alcohol use: Yes Comment: couple times a year only Drug use: No REVIEW OF SYSTEMS Abdomen: No abdominal pain, nausea, vomiting, diarrhea, or constipation. No bloating, early satiety, indigestion, or increased flatulence. Bladder: No dysuria, gross hematuria, urinary frequency, urinary urgency, or incontinence Breast: No breast lumps, nipple d/c, overlying skin changes, redness or skin retraction Allergies and current medication updated:Yes EXAM: BP 104/66 Ht 5' 6 (1.68m) Wt 140 lb (63.5kg) LMP 12/13/2004 BMI 22.61 kg/(m^2). GENERAL: pleasant, female in no apparent distress HEENT: Normocephalic, atraumatic, mucus membranes moist, and no lesions NECK: Supple, full range of motion, no adenopathy, and ?? Slightly enlarged thyroid DERMATOLOGY: Normal, without lesions, non-icteric, and non-hirsute BREAST: soft, non-tender, symmetric, no dominant mass, normal nipple-areolar complex, no lymphadenopathy, and no nipple discharge ABDOMEN: soft, non-tender, and no masses PELVIC: external genitalia normal, normal Bartholin's glands, urethra, Lavinia's glands, no vulvar lesions, good vaginal support, physiologic discharge present, normal appearing perineal body and perianal region, cervix surgically absent BIMANUAL: no adnexal masses, non-tender, and uterus surgically absent RECTOVAGINAL: deferred. NEURO: alert and oriented x3,exam grossly non-focal EXTREMITIES: normal ASSESSMENT/PLAN: 1) Health maintenance: Pap/HPV screening no longer needed Mammogram ordered Mammogram up to date Nutrition, exercise and routine health maintenance exams reviewed. Calcium/Vitamin D supplementation information provided. Colon cancer screening: up to date with screening 2) Follow up one year or sooner as needed 3) TSH ordered 4) breast pain reviewed - will try topical aspercream and evening primrose oil 5) vaginal estrace for posterior fourchette reviewed and ordered Brielle Muñoz MD Guide offered: Patient declines. documented in this encounter [facility] 02-10-2022 Miscellaneous Notes Addended by: JERRI COLEMAN on: 02/10/2022 09:02 AM Modules accepted: Orders documented in this encounter [facility] 02-10-2022 History of Presen t illness Narrative This note was created using MindEdgeriter. Subjective Merissa Hernández is a 51 year old female. 51 year old female with no PMH presents with complaints of illness. Acute onset evening. +cough +productive Has felt wheezing +body aches +rhinorrhea +diarrhea +nausea Appetite is less Denies sore throat Denies fever or chills. Denies known ill contacts Denies tobacco usage. Has been taking Advil, Mucinex and Delsym cough syrup. States body aches have resolved. The history is provided by the patient. No foreign languages department chair was used. Cough This is a new problem. The current episode started more than 2 days ago. The problem occurs constantly. Progression since onset: waxing and waning. The cough is Productive of sputum. There has been no fever. Associated symptoms include chills, headaches, rhinorrhea, myalgias and wheezing. Pertinent negatives include no chest pain, no sweats, no weight loss, no ear congestion, no ear pain, no sore throat, no shortness of breath and no eye redness. She has tried decongestants for the symptoms. The treatment provided no relief. She is not a smoker. Her past medical history does not include bronchitis, pneumonia, bronchiectasis, COPD, emphysema or asthma. PAST MEDICAL HISTORY Diagnosis Date Abnormal mammogram, unspecified left breast Family history of breast cancer Malignant melanoma of skin of lower limb, including hip (HCC) 02/04/2008 Malignant neoplasm of cervix uteri, unspecified site 05/28/06 had a hysterectomy due to the cervical cancer Mitral valve disorders(424.0) last echo was normal; gets occasional palpitations Osteopenia PAST SURGICAL HISTORY Procedure Laterality Date ARTHROSCOPY KNEE DIAGNOSTIC W/WO SYNOVIAL BX SPX 2007 Arthroscopy, knee,right DELIVERY ONLY 2002 , low cervical COLONOSCOPY FLX DX W/COLLJ SPEC WHEN PFRMD 08/10/2020 EYE SURGERY HX HEMORRHOIDECTOMY INT & XTRNL 2/> COLUMN/GENO 1995 PAST SURGICAL HISTORY OF 01/2008 LLE Melanoma removed STEREOTACTIC CORE BIOPSY 01/08/2009 left breast TOTAL ABDOMINAL HYSTERECT W/WO RMVL TUBE OVARY 2007 Hysterectomy, NAIMA VAGINAL HYSTERECTOMY ALLERGIES Azithromycin, Environment Allergies [Other], and Sulfa (Sulfonamide Antibiotics) MEDICATIONS predniSONE (DELTASONE) 10 mg tablet Take 4 tabs daily for 3 days, then 2 tabs daily for 3 days, then 1 tab daily for 3 days with food. brompheniramine-pseudoephedrine (RYNEX PSE,VALU-CHRIS) 1-15 mg/5 mL liqd Take 5 mL by mouth four times daily. scopolamine (TRANSDERM-SCOP) patch 1.5 mg/72 hr (delivers 1 mg over 3 days) Apply 1 Patch as directed every 72 hours. Apply patch to skin behind ear 4hrs prior to travel. benzonatate (TESSALON PERLES) 100 mg capsule Take 1 capsule by mouth three times daily as needed for cough. estradiol (ESTRACE) 1 mg tablet Take 1 tablet by mouth once daily. cycloSPORINE (RESTASIS) 0.05 % ophthalmic emulsion 1 Drop twice daily. MULTI-VITAMIN ORAL Take by mouth. L.acid/B.bifidum/B.animal/FOS (PROBIOTIC COMPLEX ORAL) Take by mouth. FAMILY HISTORY Problem Relation Age of Onset Breast Cancer Sister Heart Father Lung Cancer Father smoker Melanoma Sister Hypertension Brother Social History Tobacco Use Smoking status: Never Smokeless tobacco: Never Vaping Use Vaping Use: Never used Substance Use Topics Alcohol use: Yes Comment: couple times a year only Drug use: No Review of Systems Constitutional: Positive for chills. Negative for diaphoresis, fatigue, fever and weight loss. HENT: Positive for rhinorrhea. Negative for ear pain and sore throat. Eyes: Negative for pain, discharge, redness and itching. Respiratory: Positive for cough and wheezing. Negative for apnea, choking, chest tightness and shortness of breath. Cardiovascular: Negative for chest pain. Gastrointestinal: Negative for abdominal pain, diarrhea, nausea and vomiting. Musculoskeletal: Positive for myalgias. Negative for arthralgias. Skin: Negative for color change, pallor, rash and wound. Allergic/Immunologic: Positive for environmental allergies. Negative for food allergies and immunocompromised state. Neurological: Positive for headaches. Negative for dizziness and facial asymmetry. Hematological: Negative for adenopathy. Does not bruise/bleed easily. Psychiatric/Behavioral: Negative for agitation and behavioral problems. Objective BP 120/78 Pulse 84 Temp 36.3 C (97.3 F) Resp 20 Wt 63.6 kg (140 lb 3.2 oz) LMP 12/13/2004 SpO2 98% BMI 22.53 kg/m Physical Exam Vitals and nursing note reviewed. Constitutional: General: She is not in acute distress. Appearance: Normal appearance. She is normal weight. She is not ill-appearing, toxic-appearing or diaphoretic. HENT: Head: Normocephalic and atraumatic. Right Ear: Ear canal and external ear normal. Left Ear: Ear canal and external ear normal. Nose: Nose normal. No congestion or rhinorrhea. Mouth/Throat: Mouth: Mucous membranes are moist. Pharynx: No oropharyngeal exudate or posterior oropharyngeal erythema. Eyes: General: Right eye: No discharge. Left eye: No discharge. Extraocular Movements: Extraocular movements intact. Conjunctiva/sclera: Conjunctivae normal. Pupils: Pupils are equal, round, and reactive to light. Cardiovascular: Rate and Rhythm: Normal rate and regular rhythm. Pulses: Normal pulses. Heart sounds: Normal heart sounds. No murmur heard. No friction rub. Pulmonary: Effort: Pulmonary effort is normal. No respiratory distress. Breath sounds: Normal breath sounds. No stridor. No wheezing, rhonchi or rales. Chest: Chest wall: No tenderness. Abdominal: General: Abdomen is flat. There is no distension. Palpations: Abdomen is soft. There is no mass. Tenderness: There is no abdominal tenderness. There is no right CVA tenderness, left CVA tenderness, guarding or rebound. Hernia: No hernia is present. Musculoskeletal: General: No swelling, tenderness, deformity or signs of injury. Normal range of motion. Cervical back: Normal range of motion and neck supple. No rigidity. Right lower leg: No edema. Left lower leg: No edema. Lymphadenopathy: Cervical: No cervical adenopathy. Skin: General: Skin is warm and dry. Capillary Refill: Capillary refill takes less than 2 seconds. Coloration: Skin is not jaundiced or pale. Findings: No bruising, erythema, lesion or rash. Neurological: General: No focal deficit present. Mental Status: She is alert and oriented to person, place, and time. Cranial Nerves: No cranial nerve deficit. Sensory: No sensory deficit. Motor: No weakness. Coordination: Coordination normal. Gait: Gait normal. Psychiatric: Mood and Affect: Mood normal. Behavior: Behavior normal. Thought Content: Thought content normal. Judgment: Judgment normal. Assessment and Plan ASSESSMENT/PLAN: 1. URI, acute - ICD9: 465.9, ICD10: J06.9 X 5 days Likely viral, discussed possibility COVID/Influenza with patient. - Discussed viral etiology and rationale for treatment. - Symptomatic treatment with prn analgesia - Supportive care with fluids and rest - The patient may also use OTC cough and cold meds as needed, warm salt water gargles, throat lozenges and/or OTC throat spray as needed, nasal saline gtts and suction prn, and RX Bromfed - Follow up in 3-5 days if symptoms persist or sooner if worsening of symptoms - COVID WITH FLUA+B, ROUTINE-obtained and pending Jerri Coleman APRN.SHOE TREER documented in this encounter [facility] 01-24-2022 History of Presen t illness Narrative This note was created using MindEdgeriter. Subjective Merissa Hernández is a 51 year old female. HISTORY Merissa Hernández is a 51 year old lady here for yearly exam and follow up appointment. Doing well. Trying to get on track with regular exercise and healthy exercise. Overall eats healthy--plant based. Has treadmill.Half hour as often can per week--at least 3 times per week. Scopolamine helped with rides. Did get dizzy when stopped after using it routinely. PAST MEDICAL HISTORY Diagnosis Date Abnormal mammogram, unspecified left breast Family history of breast cancer Malignant melanoma of skin of lower limb, including hip (HCC) 02/04/2008 Malignant neoplasm of cervix uteri, unspecified site 05/28/06 had a hysterectomy due to the cervical cancer Mitral valve disorders(424.0) last echo was normal; gets occasional palpitations Osteopenia Current Outpatient Medications Medication Sig benzonatate (TESSALON PERLES) 100 mg capsule Take 1 capsule by mouth three times daily as needed for cough. estradiol (ESTRACE) 1 mg tablet Take 1 tablet by mouth once daily. scopolamine (TRANSDERM-SCOP) patch 1.5 mg/72 hr (1 mg over 3 days) Apply 1 Patch as directed every 72 hours. Apply patch to skin behind ear 4hrs prior to travel. cycloSPORINE (RESTASIS) 0.05 % ophthalmic emulsion 1 Drop twice daily. MULTI-VITAMIN ORAL Take by mouth. L.acid/B.bifidum/B.animal/FOS (PROBIOTIC COMPLEX ORAL) Take by mouth. No current facility-administered medications for this visit. ALLERGIES Allergen Reactions Azithromycin Hives Environment Allergi* Sulfa (Sulfonamide * Rash FAMILY HISTORY Problem Relation Age of Onset Breast Cancer Sister Heart Father Lung Cancer Father smoker Melanoma Sister Hypertension Brother Social History Tobacco Use Smoking status: Never Smokeless tobacco: Never Vaping Use Vaping Use: Never used Substance Use Topics Alcohol use: Yes Comment: couple times a year only Drug use: No Review of Systems Objective BP 118/76 Pulse 74 Wt 63 kg (139 lb) LMP 12/13/2004 SpO2 100% BMI 22.34 kg/m Last 5 Encounter Wt Readings: Date: Wt: 01/24/2022 63 kg (139 lb) 04/01/2021 61.7 kg (136 lb) 01/18/2021 61.2 kg (135 lb) 03/19/2020 61.7 kg (136 lb) 03/24/2019 62.6 kg (138 lb) No waist measurement recorded Estimated body mass index is 22.34 kg/m as calculated from the following: Height as of 04/01/21: 168 cm (5' 6.14). Weight as of this encounter: 63 kg (139 lb). Last 5 Encounter BP Readings: Date: BP: 01/24/2022 118/76 04/01/2021 104/64 01/18/2021 102/70 03/29/2020 131/71 03/19/2020 112/72 Physical Exam Vitals reviewed. Constitutional: Appearance: She is well-developed. HENT: Head: Normocephalic and atraumatic. Right Ear: Tympanic membrane, ear canal and external ear normal. Left Ear: Tympanic membrane, ear canal and external ear normal. Nose: Nose normal. Eyes: Conjunctiva/sclera: Conjunctivae normal. Neck: Thyroid: No thyromegaly. Vascular: No carotid bruit. Cardiovascular: Rate and Rhythm: Normal rate and regular rhythm. Pulses: Normal pulses. Heart sounds: Normal heart sounds. No murmur heard. No friction rub. No gallop. Pulmonary: Effort: Pulmonary effort is normal. Breath sounds: Normal breath sounds. Abdominal: General: Bowel sounds are normal. There is no distension. Palpations: Abdomen is soft. There is no mass. Tenderness: There is no abdominal tenderness. Musculoskeletal: General: No deformity. Normal range of motion. Lymphadenopathy: Cervical: No cervical adenopathy. Skin: General: Skin is warm and dry. Coloration: Skin is not jaundiced or pale. Findings: No rash. Neurological: General: No focal deficit present. Mental Status: She is alert and oriented to person, place, and time. Cranial Nerves: No cranial nerve deficit. Sensory: No sensory deficit. Motor: No abnormal muscle tone. Coordination: Coordination normal. Deep Tendon Reflexes: Reflexes normal. Psychiatric: Attention and Perception: Attention and perception normal. Mood and Affect: Mood and affect normal. Speech: Speech normal. Behavior: Behavior normal. Thought Content: Thought content normal. Cognition and Memory: Cognition and memory normal. Judgment: Judgment normal. Most recent labs (none this year) Component Latest Ref Rng & Units 06/19/2017 10/15/2020 WBC 3.70 - 11.00 k/uL 3.31 (L) 3.22 (L) RBC 3.90 - 5.20 m/uL 4.32 4.11 Hemoglobin 11.5 - 15.5 g/dL 12.6 12.1 Hematocrit 36.0 - 46.0 % 39.6 36.5 MCV 80.0 - 100.0 fL 91.7 88.8 MCH 26.0 - 34.0 pG 29.2 29.4 MCHC 30.5 - 36.0 g/dL 31.8 33.2 RDW-CV 11.5 - 15.0 % 13.5 13.3 Platelet Count 150 - 400 k/uL 174 150 MPV 9.0 - 12.7 fL 11.3 10.4 Neut% % 54.4 Abs Neut (ANC) 1.45 - 7.50 k/uL 1.80 Lymph% % 35.6 Abs Lymph 1.00 - 4.00 k/uL 1.18 Mcpherson% % 7.3 Abs Mcpherson <0.87 k/uL 0.24 Eosin% % 2.1 Abs Eosin <0.46 k/uL 0.07 Baso% % 0.6 Abs Baso <0.11 k/uL <0.03 Nucleated Reds 0 /100 WBC 0.0 Absolute nRBC <0.01 k/uL <0.01 <0.01 Diff Type Auto Diff Protein, Total 6.3 - 8.0 g/dL 7.1 6.7 Albumin 3.9 - 4.9 g/dL 4.1 4.3 Calcium 8.5 - 10.2 mg/dL 8.7 8.8 Bilirubin, Total 0.2 - 1.3 mg/dL 0.6 0.5 Alkaline Phosphatase 34 - 123 U/L 44 53 AST 13 - 35 U/L 21 19 Glucose 74 - 99 mg/dL 81 90 BUN 7 - 21 mg/dL 16 15 Creatinine 0.58 - 0.96 mg/dL 0.75 0.75 Sodium 136 - 144 mmol/L 142 140 Potassium 3.7 - 5.1 mmol/L 4.1 4.1 Chloride 97 - 105 mmol/L 103 104 CO2 22 - 30 mmol/L 28 25 Anion Gap 9 - 18 mmol/L 11 11 ALT 7 - 38 U/L 16 13 eGFR- >60 >60 eGFR-All Other Races . >60 >60 Cholesterol, Total <200 mg/dL 198 211 (H) Triglyceride <150 mg/dL 36 47 HDL Cholesterol >39 mg/dL 98 90 LDL Cholesterol <100 mg/dL 93 112 (H) Non HDL Cholesterol <130 mg/dL 100 121 Fasting Time hrs 10 Unknown VLDL Cholesterol <30 mg/dL 7 9 TC:HDL Ratio <5.10 2.02 2.34 LDL:HDL Ratio <2.54 0.95 1.24 Hemoglobin A1C 4.3 - 5.6 % 5.5 Estimated Average Glucose mg/dL 111 Assessment and Plan Encounter Diagnosis ICD-10-CM 1. Routine medical exam Z00.00 2. Hx of motion sickness Z87.898 scopolamine (TRANSDERM-SCOP) patch 1.5 mg/72 hr (delivers 1 mg over 3 days) Above issues addressed with patient. Patient involved in shared decision making for management of medical issues. History and medications reviewed. Epic updated as needed Refills and/or prescriptions taken care of and meds adjusted as indicated after reviewed history, exam and labs. Health Maintenance reviewed. Updated record and/or ordered tests as recorded. Encouraged on efforts at healthy diet and regular exercise and adequate sleep. Discussed management of dizziness that occurs after discontinues scopolamine. May try meclizine as needed after takes of patch. Further evaluation and treatment as indicated. Raymundo Arango MD documented in this encounter [facility] 12-12-2021 History of Presen t illness Narrative Patient presents for Covid and flu vaccines. Denies any problems at this time. Tolerated injections well. Aylin Javier LPN documented in this encounter [facility] 08-28-2021 Miscellaneous Notes Patient calls and notified that prescription was sent to pharmacy and notified that is she needs something stronger she would have to have VV. Patient voiced understanding. Salud Pina RN Needs appointment if needs cough med with codeine (VV okay) Pt calls and states the following: COVID-19 EXPOSURE COVID-19 EXPOSURE: Yes, spouse tested + 07/21/21, pt tested Neg 08/22/21 (same day sx started) & she is going to to another test to verify. PLACE OF CONTACT: home TYPE OF CONTACT: Daily living DURATION OF CONTACT: NA MASK: No, exposure was at home. DATE OF CONTACT: everyday COMMUNITY SPREAD: NA SYMPTOMS: Started with sore throat which is gone now. Cough last day or so, unable to sleep VACCINE: Yes, series with booster OR : NA HIGH RISK: No TRAVEL: NA : No Pt is going to do another home covid test now. Pt states she has tried Delsym 12hr & ricola cough gtts. Pt is asking if Rx for cough med can be called in? Pt states she has no fever, sob or breathing difficulties. Pt uses [email or web address] [place]. Khadra Meraz LPN documented in this encounter [facility] Evaluation note Diagnosis Need for vaccination- Primary Need for prophylactic vaccination and inoculation against unspecified single disease Need for influenza vaccination Need for prophylactic vaccination and inoculation against influenza [facility] Diagnosis URI, acute- Primary Acute upper respiratory infections of unspecified site [facility] Diagnosis Routine medical exam- Primary Routine general medical examination at a health care facility Hx of motion sickness Personal history of other specified diseases [facility] Diagnosis Encounter for gynecological examination (general) (routine) without abnormal findings- Primary Encounter for screening mammogram for malignant neoplasm of breast Other screening mammogram Enlarged thyroid Goiter, unspecified [facility] noteNo assessment information availableWC[facility] Work Phone: Evaluation note* Diagnosis Encounter for screening mammogram for malignant neoplasm of breast Other screening mammogram [facility] Diagnosis Encounter for gynecological examination (general) (routine) without abnormal findings- Primary Encounter for screening mammogram for breast cancer Screening for vaginal cancer Special screening for malignant neoplasms, vagina Special screening examination for human papillomavirus (HPV) Encounter for screening for osteoporosis Special screening for osteoporosis Encounter for monitoring estrogen replacement therapy following surgical menopause Encounter for therapeutic drug monitoring [facility] Diagnosis Encounter for screening mammogram for breast cancer [facility] Diagnosis Osteopenia, unspecified location- Primary [facility]* Diagnosis Osteopenia, unspecified location [facility]* Diagnosis 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 therapy- Primary Osteopenia, unspecified location [facility] Diagnosis Need for vaccination- Primary Need for prophylactic vaccination and inoculation against unspecified single disease [facility] Diagnosis Encounter for immunization Need for other specified prophylactic vaccination against single bacterial disease [facility] Diagnosis Routine medical exam- Primary Routine general medical examination at a health care facility Screening for depression Encounter for screening examination for other mental health and behavioral disorders Osteopenia, unspecified location Encounter for therapeutic drug monitoring Screening for lipid disorders Encounter for screening for diabetes mellitus Screening for diabetes mellitus [facility] Diagnosis Encounter for gynecological examination (general) (routine) without abnormal findings- Primary Encounter for screening mammogram for breast cancer Hormone replacement therapy (HRT) Need for prophylactic hormone replacement therapy (postmenopausal) [facility] Diagnosis Encounter for screening mammogram for breast cancer [facility] Diagnosis Fibrocystic breast changes of both breasts- Primary Family history of breast cancer Family history of malignant neoplasm of breast Family history of ovarian cancer Family history of malignant neoplasm of ovary Heterogeneously dense tissue of both breasts on mammography Increased risk of breast cancer Other specified personal history presenting hazards to health [facility]* Diagnosis Breast cancer screening, high risk patient- Primary Screening mammogram for high-risk patient Heterogeneously dense tissue of both breasts on mammography documented in this encounter [facility] for referral (narrative)* Diagnostic Procedure Only (Routine) - Closed Specialty Diagnoses / Procedures Referred By Contac t Referred To Contact [facility] Diagnoses Encounter for screening mammogram for malignant neoplasm of breast Procedures RAMON SCREENING W KULDIP SCREENING DIGITAL BREAST TOMOSYNTHESIS BI SCREENING MAMMOGRAPHY BI 2-VIEW BREAST INC CAD Brielle Hanna MD [address] [place] [address] [facility] [address] [place] [address] Referral ID Status Reason Start Date Expiration Date V isits Requested Visits Authorized [id number] Closed Auto-Generate d Referral 04/17/2022 05/17/2023 1 1 [facility] for referral (narrative)* Diagnostic Procedure Only (Routine) - Closed Specialty Diagnoses / Procedures Referred By Chloé castaneda Referred To Contact [facility] Diagnoses Encounter for screening mammogram for malignant neoplasm of breast Procedures RAMON SCREENING W KULDIP SCREENING DIGITAL BREAST TOMOSYNTHESIS BI SCREENING MAMMOGRAPHY BI 2-VIEW BREAST INC CAD Brielle Hanna MD [address] [place] [address] [facility] [address] [place] [address] Referral ID Status Reason Start Date Expiration Date V isits Requested Visits Authorized [id number] Closed Auto-Generate d Referral 04/17/2022 05/17/2023 1 1 [facility] for referral (narrative)* Diagnostic Procedure Only (Routine) - Pending Review Specialty Diagnoses / Procedures Referred By Chloé t Referred To Contact [facility] Diagnoses Encounter for screening for osteoporosis Encounter for monitoring estrogen replacement therapy following surgical menopause Procedures DXA-AXIAL SKELETON WITH VFA DXA BONE DENSITY STUDY AXIAL SKELETON Brielle Hanna MD [address] [place] [address] [place] [address] Referral ID Status Reason Start Date Expiration Date Visits Requested Visits Authorized [id number] Pending Review Auto-Generat ed Referral 04/20/2023 05/19/2024 1 1 * Diagnostic Procedure Only (Routine) - Pending Review Specialty Diagnoses / Procedures Referred By Chloé t Referred To Contact [facility] Diagnoses Encounter for screening mammogram for breast cancer Procedures RAMON SCREENING W KULDIP SCREENING DIGITAL BREAST TOMOSYNTHESIS BI SCREENING MAMMOGRAPHY BI 2-VIEW BREAST INC CAD Brielle Hanna MD [address] [place] [address] [facility] [address] [facility] [place] [address] Referral ID Status Reason Start Date Expiration Date Visits Requested Visits Authorized [id number] Pending Review Auto-Generat ed Referral 04/20/2023 05/19/[address] [facility] for referral (narrative)* Diagnostic Procedure Only (Routine) - Pending Review Specialty Diagnoses / Procedures Referred By Chloé castaneda Referred To Contact XR IMAGING Diagnoses Osteopenia, unspecified location Procedures DXA-AXIAL SKELETON Brielle Hanna MD [address] [place] [address] [place] [address] Referral ID Status Reason Start Date Expiration Date Visits Requested Visits Authorized [id number] Pending Review Auto-Generat ed Referral 06/11/2023 07/10/[address] [facility] for visit Narrative* Diagnostic Procedure Only (Routine) - Closed Specialty Diagnoses / Procedures Referred By Chloé castaneda Referred To Contact [facility] Diagnoses Encounter for screening mammogram for malignant neoplasm of breast Procedures RAMON SCREENING W KULDIP SCREENING DIGITAL BREAST TOMOSYNTHESIS BI SCREENING MAMMOGRAPHY BI 2-VIEW BREAST INC CAD Brielle Hanna MD [address] [place] [address] [facility] [address] [place] [address] Referral ID Status Reason Start Date Expiration Date V isits Requested Visits Authorized [id number] Closed Auto-Generate d Referral 04/17/2022 05/17/[address] [facility] for visit Narrative* Diagnostic Procedure Only (Routine) - Closed Specialty Diagnoses / Procedures Referred By Contac t Referred To Contact [facility] Diagnoses Encounter for screening mammogram for breast cancer Procedures RAMON SCREENING W KULDIP SCREENING DIGITAL BREAST TOMOSYNTHESIS BI SCREENING MAMMOGRAPHY BI 2-VIEW BREAST INC CAD Brielle Hanna MD [address] [place] [address] [facility] [address] [facility] [place] [address] Referral ID Status Reason Start Date Expiration Date V isits Requested Visits Authorized [id number] Closed Auto-Generate d Referral 04/20/2023 05/19/[address] [facility] for visit Narrative* Diagnostic Procedure Only (Routine) - Closed Specialty Diagnoses / Procedures Referred By Contac t Referred To Contact XR IMAGING Diagnoses Osteopenia, unspecified location Procedures DXA-AXIAL SKELETON Brielle Hanna MD [address] [place] [address] X[facility] Imaging [facility] Referral ID Status Reason Start Date Expiration Date V isits Requested Visits Authorized [id number] Closed Auto-Generate d Referral 06/11/2023 07/10/[address] [facility] for visit Narrative* Consult, Test, Treat (Routine) - Closed Specialty Diagnoses / Procedures Referred By Contac t Referred To Contact [facility] Diagnoses Encounter for screening mammogram for breast cancer Procedures RAMON SCREENING W KULDIP SCREENING DIGITAL BREAST TOMOSYNTHESIS BI SCREENING MAMMOGRAPHY BI 2-VIEW BREAST INC CAD Brielle Hanna MD [address] [place] [address] Phone: tel: fax: [facility] [address] [place] [address] Referral ID Status Reason Start Date Expiration Date V isits Requested Visits Authorized [id number] Closed Auto-Generate d Referral 05/12/2024 02/15/2025 1 1 [facility] Advance Directives No Advanced Directives Records FoundDocuments on File Type Date Recorded 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 Advance Directive(s) 08/10/2020 10:08 AM Advance Directive(s) 07/27/2020 8:36 AM Advance Directive Response Recorded Date/ Time Living Will No December 13 5:45pm Power of Entertainment Dancer No December 13, 2022 5:45pm Documents on File Type Date Recorded 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 Advance Directive(s) 04/27/2024 11:21 AM Documents on File Type Date Recorded 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 Advance Directive(s) 04/27/2024 11:21 AM Health Concerns Infection Onset Date Last Indicated Resolved Time COVID-19 Rule-Out 02/10/2022 02/10/2022 02/10/2022 8:44 PM EST Chief Complaint and Reason for Visit 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 Family History No Family History Records Found Relationship Condition Age at Onset Recorded Date/T jay brother Hypertension Unknown sister Malignant neoplasm of breast Unknown Cerebrovascular accident (CVA) Unknown Malignant melanoma Unknown Summary Purpose Additional Source Comments Source Comments (unrecognize d section and content) In the event this informatio n is protected by the Federal Confidentiality of Alcohol and Drug Abuse Patient Records regulations: The Federal rules restrict any use of the information to criminally investigate or prosecute any alcohol or drug abuse patient.[facility] the event this information is protected by the Federal Confidentiality of Alcohol and Drug Abuse Patient Records regulations: The Federal rules restrict any use of the information to criminally investigate or prosecute any alcohol or drug abuse patient.[facility] HospitalIn the event this information is protected by the Federal Confidentiality of Alcohol and Drug Abuse Patient Records regulations: The Federal rules restrict any use of the information to criminally investigate or prosecute any alcohol or drug abuse patient.[facility] the event this information is protected by the Federal Confidentiality of Alcohol and Drug Abuse Patient Records regulations: The Federal rules restrict any use of the information to criminally investigate or prosecute any alcohol or drug abuse patient.[facility] the event this information is protected by the Federal Confidentiality of Alcohol and Drug Abuse Patient Records regulations: The Federal rules restrict any use of the information to criminally investigate or prosecute any alcohol or drug abuse patient.[facility] HospitalIn the event this information is protected by the Federal Confidentiality of Alcohol and Drug Abuse Patient Records regulations: The Federal rules restrict any use of the information to criminally investigate or prosecute any alcohol or drug abuse patient.[facility] HospitalIn the event this information is protected by the Federal Confidentiality of Alcohol and Drug Abuse Patient Records regulations: The Federal rules restrict any use of the information to criminally investigate or prosecute any alcohol or drug abuse patient.[facility] HospitalIn the event this information is protected by the Federal Confidentiality of Alcohol and Drug Abuse Patient Records regulations: The Federal rules restrict any use of the information to criminally investigate or prosecute any alcohol or drug abuse patient.[facility] Hospital[facility] the event this information is protected by the Federal Confidentiality of Alcohol and Drug Abuse Patient Records regulations: The Federal rules restrict any use of the information to criminally investigate or prosecute any alcohol or drug abuse patient.[facility] HospitalIn the event this information is protected by the Federal Confidentiality of Alcohol and Drug Abuse Patient Records regulations: The Federal rules restrict any use of the information to criminally investigate or prosecute any alcohol or drug abuse patient.[facility] HospitalIn the event this information is protected by the Federal Confidentiality of Alcohol and Drug Abuse Patient Records regulations: The Federal rules restrict any use of the information to criminally investigate or prosecute any alcohol or drug abuse patient.[facility] Hospital[facility] the event this information is protected by the Federal Confidentiality of Alcohol and Drug Abuse Patient Records regulations: The Federal rules restrict any use of the information to criminally investigate or prosecute any alcohol or drug abuse patient.[facility] HospitalIn the event this information is protected by the Federal Confidentiality of Alcohol and Drug Abuse Patient Records regulations: The Federal rules restrict any use of the information to criminally investigate or prosecute any alcohol or drug abuse patient.[facility] the event this information is protected by the Federal Confidentiality of Alcohol and Drug Abuse Patient Records regulations: The Federal rules restrict any use of the information to criminally investigate or prosecute any alcohol or drug abuse patient.[facility] HospitalIn the event this information is protected by the Federal Confidentiality of Alcohol and Drug Abuse Patient Records regulations: The Federal rules restrict any use of the information to criminally investigate or prosecute any alcohol or drug abuse patient.[facility] Hospital[facility] the event this information is protected by the Federal Confidentiality of Alcohol and Drug Abuse Patient Records regulations: The Federal rules restrict any use of the information to criminally investigate or prosecute any alcohol or drug abuse patient.[facility] HospitalIn the event this information is protected by the Federal Confidentiality of Alcohol and Drug Abuse Patient Records regulations: The Federal rules restrict any use of the information to criminally investigate or prosecute any alcohol or drug abuse patient.[facility] HospitalIn the event this information is protected by the Federal Confidentiality of Alcohol and Drug Abuse Patient Records regulations: The Federal rules restrict any use of the information to criminally investigate or prosecute any alcohol or drug abuse patient.[facility] HospitalIn the event this information is protected by the Federal Confidentiality of Alcohol and Drug Abuse Patient Records regulations: The Federal rules restrict any use of the information to criminally investigate or prosecute any alcohol or drug abuse patient.[facility] HospitalIn the event this information is protected by the Federal Confidentiality of Alcohol and Drug Abuse Patient Records regulations: The Federal rules restrict any use of the information to criminally investigate or prosecute any alcohol or drug abuse patient.[facility] HospitalIn the event this information is protected by the Federal Confidentiality of Alcohol and Drug Abuse Patient Records regulations: The Federal rules restrict any use of the information to criminally investigate or prosecute any alcohol or drug abuse patient.[facility] HospitalIn the event this information is protected by the Federal Confidentiality of Alcohol and Drug Abuse Patient Records regulations: The Federal rules restrict any use of the information to criminally investigate or prosecute any alcohol or drug abuse patient.[facility] HospitalIn the event this information is protected by the Federal Confidentiality of Alcohol and Drug Abuse Patient Records regulations: The Federal rules restrict any use of the information to criminally investigate or prosecute any alcohol or drug abuse patient.[facility] HospitalIn the event this information is protected by the Federal Confidentiality of Alcohol and Drug Abuse Patient Records regulations: The Federal rules restrict any use of the information to criminally investigate or prosecute any alcohol or drug abuse patient.[facility]In the event this information is protected by the Federal Confidentiality of Alcohol and Drug Abuse Patient Records regulations: The Federal rules restrict any use of the information to criminally investigate or prosecute any alcohol or drug abuse patient.[facility] HospitalIn the event this information is protected by the Federal Confidentiality of Alcohol and Drug Abuse Patient Records regulations: The Federal rules restrict any use of the information to criminally investigate or prosecute any alcohol or drug abuse patient.[facility] HospitalIn the event this information is protected by the Federal Confidentiality of Alcohol and Drug Abuse Patient Records regulations: The Federal rules restrict any use of the information to criminally investigate or prosecute any alcohol or drug abuse patient.[facility] Reason for Visit (unrecogniz ed section and content) Reason Comments Covid Exposure & symptoms Reason Onset Date Comments Imm/Inj Immunizations 12/12/2021 Flu vaccination Reason Comments Cough Chest congestion, ru nny nose x5 days Reason Comments Yearly Exam Reason Comments Yearly Exam Reason Comments Yearly Exam Reason Onset Date Comments Refill Request 09/16/2023 Reason Comments Discussion Reason Comments Imm/Inj Reason Onset Date Comments Refill Request 12/21/2023 Reason Comments Physical Reason Comments New Patient Risk Assessment- 04/17 09/09(28.5%) Heterogeneously dense tissue- negative; no breast concerns at this time; Family history of breast cancer Reason Comments Appointment Reason Comments Received Outside Medical Records Care Teams (unrecognized sec tion and content) Charging Plug Placer Relationship Specialty Start Date End Date Raymundo Arango MD [address] [place] [address] PCP - General Internal Medicine 04/21/11 Charging Plug Placer Relationship Specialty Start Date End Date Raymundo Arango MD [address] [place] [address] PCP - General Internal Medicine 04/21/11 Charging Plug Placer Relationship Specialty Start Date End Date Raymundo Arango MD [address] [place] [address] PCP - General Internal Medicine 04/21/11 Charging Plug Placer Relationship Specialty Start Date End Date Raymundo Arango MD [address] [place] [address] PCP - General Internal Medicine 04/21/11 Charging Plug Placer Relationship Specialty Start Date End Date Raymundo Arango MD [address] [place] [address] PCP - General Internal Medicine 04/21/11 Team Status: Active Member Role Status Dates Dr. Raymundo Arango MD Family Provider Active Dr. Raymundo Arango MD Primary Care Provider Active Team Status: Inactive Member Role Status Dates Dr. Raymundo Arango MD Primary Care Provider Active Dr. Leobardo Bell DO Emergency Provider Active Charging Plug Placer Relationship Specialty Start Date End Date Raymundo Arango MD [address] [place] [address] PCP - General Internal Medicine 04/21/11 Charging Plug Placer Relationship Specialty Start Date End Date Raymundo Arango MD [address] [place] [address] PCP - General Internal Medicine 04/21/11 Charging Plug Placer Relationship Specialty Start Date End Date Raymundo Arango MD [address] [place] [address] PCP - General Internal Medicine 04/21/11 Charging Plug Placer Relationship Specialty Start Date End Date Raymundo Arango MD [address] [facility] [place] [address] PCP - General Internal Medicine 04/21/11 Charging Plug Placer Relationship Specialty Start Date End Date Raymundo Arango MD [address] [facility] [place] [address] PCP - General Internal Medicine 04/21/11 Charging Plug Placer Relationship Specialty Start Date End Date Raymundo Arango MD [address] [facility] [place] [address] PCP - General Internal Medicine 04/21/11 Charging Plug Placer Relationship Specialty Start Date End Date Raymundo Arango MD [address] [facility] [place] [address] PCP - General Internal Medicine 04/21/11 Charging Plug Placer Relationship Specialty Start Date End Date Raymundo Arango MD [address] [facility] [place], [place] [address] PCP - General Internal Medicine 04/21/11 Charging Plug Placer Relationship Specialty Start Date End Date Raymundo Arango MD [address] [facility] [place] [address] PCP - General Internal Medicine 04/21/11 Charging Plug Placer Relationship Specialty Start Date End Date Raymundo Arango MD [address] [facility] [place] [address] PCP - General Internal Medicine 04/21/11 Charging Plug Placer Relationship Specialty Start Date End Date Raymundo Arango MD [address] [place] [address] PCP - General Internal Medicine 04/21/11 Yue Scanlon APRN.MECHANICAL SUPERVISOR [address] [place] [address] [address] [facility] 01/25/24 Laila Grimes APRN.SHOE TREER [address] [facility] [place] [address] [address] [facility] Internal [facility] 01/25/24 Charging Plug Placer Relationship Specialty Start Date End Date Raymundo Arango MD [address] [place] [address] PCP - General Internal Medicine 04/21/11 Yue Scanlon FOOD TASTER.MECHANICAL SUPERVISOR [address] [place] [address] [address] [facility] 01/25/24 Laila Grimes APRN.SHOE TREER [address] [place] [address] [address] [facility] Internal [facility] 01/25/24 Charging Plug Placer Relationship Specialty Start Date End Date Raymundo Arango MD [address] [place] [address] PCP - General Internal Medicine 04/21/11 Yue Scanlon FOOD TASTER.MECHANICAL SUPERVISOR [address] [place] [address] [address] [facility] 01/25/24 Laila Grimes APRN.SHOE TREER [address] [facility] [place] [address] [facility] 05/10/24 Charging Plug Placer Relationship Specialty Start Date End Date Raymundo Arango MD [address] [place] [address] PCP - General Internal Medicine 04/21/11 Yue Scanlon, FOOD TASTER.MECHANICAL SUPERVISOR [address] [facility] [place] [address] [address] [facility] Internal [facility] 01/25/24 Laila Grimes FOOD TASTER.SHOE TREER [address] [facility] [place] [address] [facility] 05/10/24 Charging Plug Placer Relationship Specialty Start Date End Date Raymundo Arango MD [address] [facility] [place] [address] PCP - General Internal Medicine 04/21/11 Yue Scanlon, FOOD TASTER.MECHANICAL SUPERVISOR [address] [facility] [place] [address] [address] [facility] 01/25/24 Laila Grimes, FOOD TASTER.SHOE TREER [address] [facility] [place] [address] [facility] 05/10/24 Charging Plug Placer Relationship Specialty Start Date End Date Raymundo Arango MD [address] [facility] [place] [address] PCP - General Internal Medicine 04/21/11 Yue Scanlon, FOOD TASTER.MECHANICAL SUPERVISOR [address] [place] [address] [facility] 01/25/24 07/05/24 Laila Grimes FOOD TASTER.SHOE TREER [address] [facility] [place] [address] [facility] 05/10/24 Yue Scanlon, SARA.MECHANICAL SUPERVISOR [address] [place] [address] [facility] 07/06/24 Charging Plug Placer Relationship Specialty Start Date End Date Raymundo Arango MD [address] [place] [address] PCP - General Internal Medicine 04/21/11 Yue Scanlon, SARA.MECHANICAL SUPERVISOR [address] [place] [address] [facility] 01/25/24 07/05/24 Laila Grimes FOOD TASTER.SHOE TREER [address] [place] [address] [facility] 05/10/24 Yue Scanlon FOOD TASTER.MECHANICAL SUPERVISOR [address] [place] [address] [facility] 07/06/24 Charging Plug Placer Relationship Specialty Start Date End Date Raymundo Arango MD [address] [place] [address] PCP - General Internal Medicine 04/21/11 Laila Grimes FOOD TASTER.SHOE TREER [address] [facility] [place] [address] [facility] 05/10/24 Yue Scanlon APRN.MECHANICAL SUPERVISOR [address] [facility] [address] [address] [facility] 07/06/24 Goals (unrecognized section and content) Goals may be documented in a n alternate section INFORMATION SOURCE (unrecogn ized section and content) DATE CREATED AUTHOR 12/15/2022 [facility] DATE CREATED AUTHOR AUTHOR'S EVITA ATEILEEN 08/28/2024 [facility] FOR RECORDS PERTAINING TO PATIENTS WHO ARE OR HAVE BEEN ENROLLED IN A CHEMICAL DEPENDENCY/SUBSTANCEABUSE PROGRAM, SOME INFORMATION MAY BE OMITTED. This clinical summary was aggregated from multiple sources. Caution should be exercised in using it in the provision of clinical care. This summary normalizes information from multiple sources, and as a consequence, information in this document may materially change the coding, format and clinical context of patient data. In addition, data may be omitted in some cases. CLINICAL DECISIONS SHOULD BE BASED ON THE PRIMARY CLINICAL RECORDS. [employer] provides no warranty or guarantee of the accuracy or completeness of information in this document.
[2024-10-15 16:18] LABS: D-Dimer Quantitative (DVT/PE) < 0.27 FEU/ug/m (0.27-0.49)
--- NOTE | 2024-10-15 16:30 | ED.VIS.LOWEX ---
HPI History of Present Illness Chief Complaint: Lower Extremity Injury Narrative Narrative: Patient is a 54-year-old female who is on estrogen replacement therapy (has a patch) presenting with 3 days of intermittent cramping in her right calf. She states it is not a deep cramp but more like a crawling sensation. She points to her lateral proximal right calf as the area where she feels it. She notes that last weekend she was shoveling is not sure if that cause her symptoms. She denies associated numbness or tingling of her legs. Denies any shortness of breath or difficulty breathing. Denies any chest pain. Denies any swelling of her legs. Denies any history of DVT or PE. No other complaints or concerns at this time. [facility] Medical History Osteoarthritis Allergy/AdvReac Type Severity Reaction Status Date / Time azithromycin Allergy Mild Hives Verified 10/15/24 14:41 Sulfa (Sulfonamide Allergy Mild Rash Verified 10/15/24 14:41 Antibiotics) Family History Brother Hypertension Sister Breast cancer CVA (cerebral vascular accident) Melanoma Surgical History S/P wisdom tooth extraction s/p melanoma removal S/P hemorrhoidectomy Status post hysterectomy S/P section Social History Smoking Status: Never smoker alcohol intake: never ROS ROS ED Constitutional Constitutional ED: Denies chills or fever(s) Cardiovascular Cardiovascular: Denies chest pain or palpitations Respiratory/Chest Respiratory/Chest: Denies dyspnea Musculoskeletal Musculoskeletal: Reports other Details: Right leg cramping Integumentary Denies Abrasions or rash Neurologic Neurologic: Denies paresthesias or weakness Hematologic/Lymphatic Hematologic/Lymphatic: Denies easy bleeding or easy bruising EXAM Physical Exam Const Vital Signs: 10/15/24 14:40 Temperature 98 F Temperature Source Oral Pulse Rate 62 Respiratory Rate 16 Blood Pressure 117/61 Blood Pressure Mean 79 Pulse Ox 100 Oxygen Delivery Method Room Air Positive well nourished and well developed General Appearance ED: well developed and NAD Neck supple Resp normal respiratory effort and clear to auscultation bilaterally Cardio regular rate and regular rhythm Cardio Narrative: 2+ DP pulses Extremity normal to inspection and full ROM Extremity Narrative: No palpable cords of the right lower extremity. No edema appreciated. Compartments are soft. No pain with passive range of motion of the lower extremity. No bony tenderness of the fibula or tibia. Neuro oriented x3 Sensorium / Orientation: alert Psych mental status grossly normal Skin no wounds Rashes: no rashes MDM MDM MDM Narrative Medical decision making narrative: Patient evaluated for mild cramping discomfort of her left calf. Does not describe charley horses low suspicion for electrolyte derangement. As she is on estrogen replacement therapy did consider DVT. She is low risk per [place] DVT criteria. No physical exam findings concerning for DVT. Venous duplex unable to obtain because is the weekend and we do not have ultrasound here right now. D-dimer is obtained however this is negative (less than 0.27). Given her low risk and negative D-dimer I do not think she requires outpatient ultrasound or anticoagulation. Patient is agreeable at this. Discussed alternating ibuprofen and Tylenol as needed for discomfort. Discussed if she develops any signs of DVT to return to the ER follow-up with her primary care doctor for repeat ultrasound. Patient is good distal pulses suspicion for acute arterial occlusion/vascular abnormality. Is not made worse with ambulation so suspicion for intermittent claudication. Lab Data Labs: Laboratory Results - last 24 hr 10/15/24 16:00 D-Dimer Quant (PE/DVT) < 0.27 L Discharge Plan Triage Chief Complaint: Lower Extremity Injury ED Provider: Marci Kline Dx/Rx/DC Orders Clinical Impression: Pain of right calf, D dimer value normal Instructions: ED Leg Cramps Primary Care Provider: Joy Arango Referrals: Joy Arango MD [Primary Care Provider] - Activity Restrictions/Additional Instructions: Your D-dimer was negative (which is normal). Given your physical exam and this normal leg exam, this makes blood clot in the leg extremely unlikely. Alternate ibuprofen and Tylenol as needed for pain control. If your symptoms worsen or progress either follow-up with your primary care doctor or return to the emergency room. I do not think you require an ultrasound of the leg right now. Print Language: Bruneian Disposition Disposition: Home, Self Care
[2024-10-15 16:42] VITALS: BP 120/71; PULSE 65; RESP 17; TEMP 36.8; O2SAT 100
== END 2024-10-15 16:43 | disposition home or self-care (01) ==
PROVIDERS: Emergency Provider Emergency Medicine; PCP Internal Medicine; Visit Provider Emergency Medicine
DX: M79.661 Pain in right lower leg (principal); Z90.710 Acquired absence of both cervix and uterus; X50.9XXA Other and unspecified overexertion or strenuous movements or postures, initial encounter; Y93.H1 Activity, digging, shoveling and raking
CPT/HCPCS: 85379; 99282